=== PATIENT | female | born 1950 | race Caucasian/White ===

== ENCOUNTER 2024-02-12 08:17 | Outpatient (REF) | payer MEDICARE, SELFPAY ==
[2024-02-12 11:34] LABS: Erythrocyte Sedimentation Rate 11 MM/HR (0-20)
[2024-02-12 11:35] LABS: Alanine Aminotransferase 19 U/L (0-31); Aspartate Amino Transferase 24 U/L (5-31); C Reactive Protein 0.24 mg/dL (< or = 0.50)
[2024-02-12 11:47] LABS: HBsAGNum1 0.62 S/CO (0.00-0.99); Hepatitis B Core Antibody Nonreactive (Nonreactive); Hepatitis B Surface Antigen Negative (Negative); ~HepC Num1 0.25 S/CO (0.00-0.79); ~Hepatitis B Surface Antibody NONREACTIVE (Nonreactive); ~Hepatitis C Antibody Nonreactive (Nonreactive)
[2024-02-13 16:14] LABS: Complement C3 129 mg/dL (83-193)
[2024-02-13 17:43] LABS: Anti DNA DS Antibody 9 IU/mL
[2024-02-15 05:03] LABS: TS Negative Control Passed; TS Panel A 3; TS Panel B 1; TS Positive Control Passed; TSpotTB Negative (Negative)
== END 2024-02-12 08:18 | disposition home or self-care (01) ==
LOC: HO.LAB 08:17
PROVIDERS: PCP Nurse Practitioner Adult Health; Visit Provider Internal Medicine Rheumatology
DX: M32.9 Systemic lupus erythematosus, unspecified (principal); Z79.899 Other long term (current) drug therapy; M85.80 Other specified disorders of bone density and structure, unspecified site; I73.00 Raynaud's syndrome without gangrene; M35.00 Sjogren syndrome, unspecified
CPT/HCPCS: 36415; 84450; 84460; 85652; 86140; 86160; 86225; 86481; 86704; 86706; 86803; 87340; 99212

== ENCOUNTER 2024-02-12 08:17 | Outpatient (AMB) | payer MEDICARE, SELFPAY ==
[2024-02-12 08:18] VITALS: BP 124/72; PULSE 91; O2SAT 97; BMI 28.5
--- NOTE | 2024-02-12 08:18 | A.OFFVIS_ITS ---
Vital Signs 02/12/24 08:18 Height 6 ft Weight 210 lb BMI 28.5 BP 124/72 Blood Pressure Location Lt brachial Position Sitting Pulse 91 Pulse Source Pulse Oximeter Pulse Oximetry (%) 97 Oxygen Delivery Method Room Air Intake Visit Reasons: Lupus/CM Intake Note: Patient is here to follow up on lupus, patient has fallen 4 times since she was last seen, and dropping things for the last 4 months. Allergies nitrofurantoin [From Macrodantin] Allergy (Mild, Verified 02/12/24 08:24) diarrhea, vomiting spironolactone Allergy (Mild, Verified 02/12/24 08:24) Rash cecor Allergy (Intermediate, Uncoded 02/12/24 08:24) Anaphylaxis penicillin Allergy (Mild, Uncoded 02/12/24 08:24) Rash sulfa Adverse Reaction (Mild, Uncoded 02/12/24 08:24) Unknown HPI HPI Lupus/CM: Details: Back on HCQ. Feels better. She has improved joint pain overall. Reports surgery from right hammer toes did not cause fusion of bones in toes. Gained 10lbs. Now back on weight watchers. Fell 4 times going up stairs. Left leg is not lifting. Soles of feet turn white in the cold for years. She puts wool socks on with benefit. Sleeps with heating pad. No fevers, new rashes, dyspnea, joint pains, joint swelling, oral ulcers, urinary symptoms. Review of Systems Const All systems reviewed & are unremarkable except as noted in HPI and below Physical Exam Vital Signs: Last Vital Signs Pulse 91 02/12/24 08:18 BP 124/72 02/12/24 08:18 Pulse Ox 97 02/12/24 08:18 Oxygen Delivery Method Room Air 02/12/24 08:18 BMI result Body Mass Index 28.5 Const Other: General: Comfortable CVS: RRR Respiratory: clear to auscultation bilaterally. Good respiratory effort Skin: No lesions seen MSK: No tenderness of any joints. No synovitis. Good range of motion of upper extremities and lower extremities. 4/5 power left hip flexor, rest of the lower extremities was 5/5 power. Assessment & Plan Assessment & Plan (1) SLE (systemic lupus erythematosus): Comment: History of systemic lupus erythematosus mild with secondary Sjogren syndrome and Raynaud's phenomenon affecting her feet. OFELIA positive 1:80, indeterminate double-stranded DNA, SSA/SSB negative. Dry eyes, dry mouth, fatigue, mouth ulcers, nose ulcers with history of flares of thrush on tongue with oral nasopharyngeal ulcers. Initially hydroxychloroquine 400 mg q.d. controlled hand pain. Change to 200 mg q.d. 01/29/2023 after diagnosis of age-related macular degeneration in clinical quiescence state. She remains in clinical remission on hydroxychloroquine 200 mg daily. Code(s): M32.9 - Systemic lupus erythematosus, unspecified Category: Medical Qualifiers: Systemic lupus erythematosus type: unspecified Systemic lupus erythematosus organ involvement: unspecified Qualified Code(s): M32.9 - Systemic lupus erythematosus, unspecified Plan: Continue 200 mg hydroxychloroquine daily. Hx ARMD. She has an upcoming appointment for visual field testing. Eye exam OCT 01/29/2023, 05/01/2023 are okay. She will use Tylenol as needed for joint pain. I have reviewed her recent kidney function were which revealed creatinine of 1.0 with EGFR greater than 60 01/2024. She will use NSAIDs occasionally for joint pain. We will monitor kidney function closely as in the past she has had EGFR less than 60 (contraindication to oral NSAIDs). Return to clinic in 3 months (2) Other skilled nursing (current) drug therapy: Code(s): Z79.899 - Other skilled nursing (current) drug therapy Category: Medical Plan: See above (3) Osteopenia: Comment: Osteopenia history with high fracture risk. History of hairline pelvic fracture. Previously treated with Fosamax from 2019 or [id number]. She has been on drug holiday. She had surgery on right foot due to hammertoes and reports that the bones are not fusing. I recommend that she get an updated bone density. Code(s): M85.80 - Other specified disorders of bone density and structure, unspecified site Category: Medical Qualifiers: Osteopenia location: unspecified Qualified Code(s): M85.80 - Other specified disorders of bone density and structure, unspecified site Plan: She will contact PCP for bone density. Return to clinic in 3 months (4) Raynaud disease: Comment: Intermittent activity in feet. Her soles of her feet turn white when exposed to cold. Code(s): I73.00 - Raynaud's syndrome without gangrene Category: Medical Qualifiers: Raynaud?s-associated gangrene presence: without gangrene Qualified Code(s): I73.00 - Raynaud's syndrome without gangrene Plan: We discussed conservative management. She will try using hot packs as well as well as socks when she has an episode. Return to clinic in 3 months (5) Sjogren syndrome: Comment: Secondary Sjogren syndrome is controlled. Dry mouth is controlled on pilocarpine. Code(s): M35.00 - Sjogren syndrome, unspecified Category: Medical Qualifiers: Sjogren organ or system involvement: without extraglandular involvement Qualified Code(s): M35.00 - Sjogren syndrome, unspecified Plan: Continue pilocarpine 5 mg t.i.d. Return to clinic in 3 months Plan See above Orders: Orders Aspartate Amino Transferase 02/12/24 M32.9 - Systemic lupus erythematosus, unspecified, Z79.899 - Other long term care pharmacist (current) drug therapy Erythrocyte Sedimentation Rate 02/12/24 M32.9 - Systemic lupus erythematosus, unspecified, Z79.899 - Other long term care pharmacist (current) drug therapy T Spot TB 02/12/24 M32.9 - Systemic lupus erythematosus, unspecified, Z79.899 - Other long term care pharmacist (current) drug therapy Alanine Aminotransferase 02/12/24 M32.9 - Systemic lupus erythematosus, unspecified, Z79.899 - Other long term care pharmacist (current) drug therapy C Reactive Protein 02/12/24 M32.9 - Systemic lupus erythematosus, unspecified, Z79.899 - Other skilled nursing (current) drug therapy Hepatitis B,C Profile 02/12/24 M32.9 - Systemic lupus erythematosus, unspecified, Z79.899 - Other long term care pharmacist (current) drug therapy Complement C3 02/12/24 M32.9 - Systemic lupus erythematosus, unspecified, Z79.899 - Other long term care pharmacist (current) drug therapy Complement C4 02/12/24 M32.9 - Systemic lupus erythematosus, unspecified, Z79.899 - Other skilled nursing (current) drug therapy Anti DNA DS Antibody 02/12/24 M32.9 - Systemic lupus erythematosus, unspecified PT Evaluation and Treatment 02/12/24 R29.898 - Other symptoms and signs involving the musculoskeletal system Coding Level of Care Code Est Pt Level 4 (98430) Complex EM visit Add On G2211 Diagnoses Systemic lupus erythematosus, unspecified SLE type, unspecified organ involvement status M32.9 Systemic lupus erythematosus type: unspecified Systemic lupus erythematosus organ involvement: unspecified Other skilled nursing (current) drug therapy Z79.899 Osteopenia, unspecified location M85.80 Osteopenia location: unspecified Raynaud's disease without gangrene I73.00 Raynaud?s-associated gangrene presence: without gangrene Sjogren's syndrome without extraglandular involvement M35.00 Sjogren organ or system involvement: without extraglandular involvement
== END 2024-02-12 09:12 | disposition home or self-care (01) ==
PROVIDERS: Visit Provider Internal Medicine Rheumatology
DX: M32.9 Systemic lupus erythematosus, unspecified (principal); Z79.899 Other long term (current) drug therapy; M85.80 Other specified disorders of bone density and structure, unspecified site; I73.00 Raynaud's syndrome without gangrene; M35.00 Sjogren syndrome, unspecified
CPT/HCPCS: 99214; G2211

== ENCOUNTER 2024-05-15 08:09 | Outpatient (REF) | payer MEDICARE, SELFPAY ==
--- OUTSIDE RECORDS SUMMARY | 2024-05-15 10:26 | XMS_ITS | Encounter Summary ---
Author Organization [facility] Address [address] [place] [address] Care Team Providers Care Laundry Aide Name Role Phone Ani Stearns NP Primary Care Provi elena Encounter Details Date Type Department Care Team ([facility] st Contact Info) Description 05/15/2023 Orders Only [facility] [address] [place] [address] Jacqui Moran, BRIDGETT [address] [facility] [address] [place] [address] Other hammer toe(s) (acquired), right foot (Primary [...] 2:45 PM EDT Consult [facility] [place] [address] [place] [address] Justin Yoo MD [address] [facility] [address] [place] [address] 10/07/2024 3:50 PM EDT Office Visit [facility] [place] [address] [facility] [address] [place] [address] Lee Medley, BRIDGETT [address] [facility] [address] [place] [address] documented as of this encounter Visit Diagnoses Diagnosis Other hammer toe(s) (acquired), right foot- Primary documented in this encounter Care Teams Laundry Aide Relationship Specialty Start Date End Date Ani Stearns NP [address] [place] [address] [place] [address] PCP - General 08/14/20 documented as of this encounter
--- OUTSIDE RECORDS SUMMARY | 2024-05-15 10:26 | XMS_ITS | Continuity of Care Document ---
Author Name [facility] Organization [facility] Care Team Providers Care Barrel Dedenting Machine Operator Name Role Phone [facility] Unavailable Unavailable Problems Problem Status Onset Date Classification Date Reported Comments Source Generalized weakness 08/10/2018 08/11/2018 45 [facility] Jaw pain 08/10/2018 08/11/2018 45 [facility] Acute UTI 08/10/2018 08/11/2018 45 [facility] Syncope, near 08/10/2018 08/11/2018 [facility] ill feeling 08/10/2018 08/11/2018 45 [facility] EKG abnormalities 08/10/2018 08/11/2018 45 [facility] Medications Medication Details Route Status Patient Instructions Ordering Provider Order Date Source Sulfamethoxazole 800 MG / Trimethoprim 160 MG Oral Tablet [Bactrim] = 1 Tab, ORAL, BID, X 5 Day(s), # 10 Tab, Indication= Urinary Tract Infection (UTI), 0 Refill(s), Acute Active 019 45 [facility] [place] Allergies, Adverse Reactions, Alerts Substance Category Reaction Severity Reaction type Status Date Reported Comments Source codeine Assertion Drug allergy Active 45 [facility] penicillin Assertion Drug allergy Active 45 [facility] estrogens Assertion Drug allergy Active 45 [facility] Macrodantin Assertion Drug allergy Active 45 [facility] Ceclor Assertion Drug allergy Active 45 [facility] spironolacton e and analogues Assertion Drug allergy Active 45 [facility] Results Order Name Results Value Reference Range Date Interpretation Comments Source DDimerQnt D-Dimer, Qnt 0.55 mg/L - <=0.50 08/10 H Based on warehouse operations manager 's specificatio ns, PE/DVT risk related cutoff at0.50 mg/L the assay had a sensitivity of 97%, specificity of 42%, andNPV of 98% for ruling out PE/DVT. [facility] AutoDiff* Auto Neutrophil Percent 53.2 % 40.0 - 80.0 08/10 NA [facility] AutoDiff* Auto Neutrophil Absolute 3.2 K/uL 08/10 NA [facility] [place] AutoDiff* Auto Lymphocyte Percent 30.9 % 18.0 - 45.0 08/10 NA [facility] [place] AutoDiff* Auto Lymphocyte Absolute 1.9 K/uL 08/10 NA [facility] [place] AutoDiff* Auto Monocyte Percent 11.5 % 3.0 - 12.0 08/10 NA [facility] [place] AutoDiff* Auto Monocyte Absolute 0.7 K/uL 08/10 NA [facility] [place] AutoDiff* Auto Eosinophil Percent 3.3 % - <=7.0 08/10 NA [facility] [place] AutoDiff* Auto Eosinophil Absolute 0.2 K/uL 08/10 NA [facility] [place] AutoDiff* Auto Basophil Percent 1.1 % - <=2.0 08/10 NA [facility] [place] AutoDiff* Auto Basophil Absolute 0.1 K/uL 08/10 NA [facility] [place] CBC WBC 6.0 K/uL 3.5 - 10.4 08/10 NA [facility] [facility] CBC RBC 4.57 M/uL 3.60 - 5.40 08/10 NA [facility] [place] CBC HGB 13.2 gm/dL 12.0 - 16.0 08/10 NA [facility] [place] CBC HCT 41.3 % 37.0 - 47.0 08/10 NA [facility] [place] CBC MCV 90.4 fL 82.0 - 101.0 08/10 NA [facility] CBC MCH 28.9 pg 26.0 - 34.0 08/10 NA [facility] [place] CBC MCHC 31.9 gm/dL 32.0 - 36.0 08/10 L [facility] [place] CBC RDW 14.2 % 11.0 - 15.0 08/10 NA [facility] [place] CBC PLT 219 K/uL 140 - 440 08/10 NA [facility] [place] CBC MPV 8.5 fL 7.9 - 10.8 08/10 NA [facility] [place] CMP Sodium Level 140 mmol/L 136 - 145 08/10 NA [facility] [place] CMP Potassium Level 3.4 mmol/L 3.5 - 5.1 08/10 L [facility] [place] CMP Chloride Level 107 mmol/L 98 - 107 08/10 NA [facility] [place] CMP CO2/Carbon Dioxide 24 mmol/L 21 - 32 08/10 NA [facility] [place] CMP Anion Gap 9 mmol/L 4 - 16 08/10 [facility] [place] [facility] CMP Glucose, Random 104 mg/dL 70 - 95 08/10 H Reference ranges are based on a fasting specimen. [facility] BUN 16 mg/dL 7 - 20 08/10 [facility] [place] [facility] CMP Creatinine 0.7 mg/dL 0.6 - 1.1 08/10 NA [facility] [place] CMP BUN/Creat Ratio 22.9 08/10 [facility] [place] [facility] CMP Osmolality, Calculated 291 08/10 [facility] [place] [facility] CMP Calcium Level 9.0 mg/dL 8.6 - 10.0 08/10 [facility] [place] [facility] CMP Total Protein 7.3 gm/dL 6.4 - 8.2 08/10 [facility] [place] [facility] CMP Albumin Level 4.1 gm/dL 3.5 - 5.0 08/10 NA [facility] [place] CMP Globulin Level 3.2 gm/dL 2.0 - 4.0 08/10 [facility] [place] CMP A/G Ratio 1.3 1.1 - 2.2 08/10 [facility] [place] CMP ALP 50 units/L 38 - 126 08/10 NA [facility] [place] CMP ALT 14 units/L 10 - 40 08/10 [facility] [place] CMP AST 19 units/L 15 - 41 08/10 [facility] [place] [facility] CMP Bilirubin, Total 0.5 mg/dL - <=1.0 08/10 NA [facility] [place] CMP GFR - Non >60 mL/min/1.7 3m2 08/10 NA <60 = Renal Insufficienc y, <15 = Renal Failure. This equation is not applicable to person's under 18 years of age.eGFR calculation based on the IDMS traceable four-paramet er MDRD equation. [facility] GFR - >60 mL/min/1.7 3m2 08/10 NA [facility] Trop Troponin I <0.02 ng/mL - [...] testing may be helpful for interpretati on. [facility] UADwMCSIf UA - Source/Collec t Type Urine Clean Cat 08/10 NA [facility] UADwMCSIf UA - Appearance CLEAR Clear 08/10 NA [facility] U[facility]wMCSIf UA - Color YELLOW 08/10 NA [facility] UADwMCSIf UA - pH 6.0 5.0 - 8.0 08/10 NA [facility] UADwMCSIf UA - Specific [place] 1.010 1.010 - 1.025 08/10 NA [facility] UADwMCSIf UA - Protein NEGATIVE Negative 08/10 NA [facility] UADwMCSIf UA - Glucose NEGATIVE Negative 08/10 [facility] [place] [facility] UADwMCSIf UA - Ketones NEGATIVE Negative 08/10 [facility] [place] [facility] UADwMCSIf UA - Bilirubin NEGATIVE Negative 08/10 NA [facility] UADwMCSIf UA - Blood NEGATIVE Negative 08/10 NA [facility] UA - Urobilinogen 0.2 0.1 - 1.0 08/10 NA [facility]wM[facility] UA - Nitrites NEGATIVE Negative 08/10 [facility] [place] [facility]wM[facility] UA - Leukocyte Esterase SMALL Negative 08/10 * [facility] UA Micro Y/N Yes 08/10 NA [facility] Urine Culture Y/N Yes 08/10 NA [facility] UAMicro* UA - WBC 6-10 /HPF 0 - 5 08/10 * [facility] UAMicro* UA - RBC 0-2 /HPF 0 - 2 08/10 NA [facility] UAMicro* UA - Bacteria Moderate /HPF Negative 08/10 * [facility] UAMicro* UA - Epithelials, Squamous Few 08/10 NA [facility] C Urine C Urine Final:DANIEL ECTION [...] laboratory , or contact the Microbi[employer] Bus Monitor for consultati on. Performed at: [facility] Central Lab, CLIA# [id number] [id number] [place] [address] 08/10 [facility] Diagnostic Reports Report Value Date Source Chest 1 Vw Portable INDICATION: Weakness COMPARISON: None. TECHNIQUE: AP upright chest x-ray was obtained. FINDINGS: There is no focal consolidation, pleural effusion or pneumothorax. The cardiomediastinal silhouette is within normal limits. Regional osseous structures are unremarkable. IMPRESSION: No acute cardiopulmonary findings. Workstation ID: [id number] Signed by: Ochoa Florian on 08/11/2018 11:30 08/10/2018 [facility] Consultation Notes Results Value Date Source ED Physician Notes Patient: CHLOE ROSARIO Age: 68 years Sex: Female : 1950 Author: MD [place] Erin R Associated Diagnosis: Acute UTI; Generalized weakness Basic Information MSEI MD/RAILROAD WHEELS AND AXLE INSPECTOR/PA Time Patient Seen face to face: Date [...] pain at 04:00 am. Patient went the [facility] where ECG abnormalities were appreciated. [...] UA - Appearance Clear UA - Specific [place] 1.010 UA - pH 6.0 UA - [...] August 10, 2018, 5:00 PM. . 08/10/2018 [facility] Vital Signs Vital Sign Value Date Comments Source Pulse rate 95 bpm 08/11/2018 45 [facility] Respiratory rate 18 br/min 08/11/2018 45 [facility] Temperature (F) 97.5 [degF] 08/11/2018 45 [facility] [place] Pulse Oximetry 97 % 08/11/[address] [facility] [place] Systolic BP 132 mm[Hg] 08/11/2018 45 [facility] [place] Diastolic BP 77 mm[Hg] 08/11/2018 45 [facility] [place] Pulse Oximetry 96 % 08/11/[address] [facility] [place] Systolic BP 141 mm[Hg] 08/11/2018 45 [facility] [place] Diastolic BP 82 mm[Hg] 08/11/2018 45 [facility] [place] Neurological norm WDL (08/10/18 1:51 PM) 08/10/2018 45 [facility] [place] Temperature (F) 98.1 [degF] 08/10/2018 45 [facility] [place] Pulse rate 114 bpm 08/10/2018 45 [facility] [place] Pulse Oximetry 96 % 08/10/[address] [facility] [place] Respiratory rate 20 br/min 08/10/2018 45 [facility] [place] HeightLength (cm) 170 cm 08/10/2018 45 [facility] [place] Weight (kg) 90 kg 08/10/2018 45 [facility] [place] Systolic BP 182 mm[Hg] 08/10/2018 45 [facility] [place] Diastolic BP 96 mm[Hg] 08/10/2018 45 [facility] [place] Dose calculation weight (kg) 90 kg 08/10/2018 45 [facility] [place] Encounters Location Location Details Encounter Type Encounter Number Reason For Visit Attending Provider ADM Date DC Date Status Source 45 45 [facility] Outpatient [id number] FLUTTER TACHYCARD IA Roscoe Gresham 08/10 Active [facility] [facility] 45 45 [facility] Emergency [id number] ABNORMAL ELECTROCA RDIOGRAM Concepcion Villalta 08/10 Active [facility] [place] Procedures Procedure Code Date Perfomer Comments Source ROUTINE VENIPUNCTURE [id number] 08/11/2018 45 [facility] [place] ROUTINE VENIPUNCTURE 24421 08/10/2018 45 [facility] [place] Plan of Care Plan of Care Date Source Diagnostic Tests PendingCult ure Urine 08/10/18 08/11/2018 45 [facility] [place]
--- OUTSIDE RECORDS SUMMARY | 2024-05-15 10:27 | XMS_ITS | Encounter Summary ---
Author Organization [facility] Address [address] [place] [address] Care Team Providers Care Indoor Landscaper/Gardener Name Role Phone Ani Stearns NP Primary Care Provi elena Reason for Visit * Reason Comments Pain Encounter Details Date Type Department Care Team (Late st Contact Info) Description 05/08/2024 4:45 PM EST Consult [facility] [address] [phone] Wili Schwab PA 31 [facility] [address] [place] [address] Pain of right hip (Primary Dx); Spondylosis [...] from the original note were not included. [facility] [address] [facility] [address] [phone] Encounter Date: 05/08/24 Assessment & Plan 1. [...] AND ABLATION FOOT SURGERY Right 05/2023 reconstrontion [place] APPENDECTOMY Appendectomy: 2011-10-05 10:33:19 [place] DESTRUCTION VAGINAL LESIONS SIMPLE Ablation Of Vaginal Lesion(S): 2011-10-05 10:33:19 [place] TONSILLECTOMY PRIMARY/SECONDARY <AGE 12 Tonsillectomy: 2011-10-05 10:33:19 [place] UNLISTED PROCEDURE URINARY SYSTEM Bladder Surgery: 2011-10-05 [...] 2:45 PM EDT Consult [facility] [address] [address] Justin Yoo MD [address] [place] [address] [address] [place] [id number] 10/07/2024 3:50 PM EDT Office Visit [facility] Neurology [address] [place] [address] Lee Medley, BRIDGETT 35 [facility] [address] [place] [address] documented as of this encounter Procedures Procedure Name Priority Date/Time Associated Diagnosis Comments XR LUMBAR SPINE 1 VIEW Routine 05/08/2024 4:47 PM EST Pain of right hip XR HIP W PELVIS 2 OR 3 VIEWS-RIGHT Routine 05/08/2024 4:47 PM EST Pain of right hip documented in this encounter Results * XR Lumbar spine 1 view (05/08/2024 4:47 PM EST) Narrative [facility] - 05/08/2024 4:47 PM EST [facility] and images reviewed by orthopedic provider. ??Any findings are documented within ambulatory encounter note on date of service. Wili LIUG DIAGNOSTIC I MAGING ORDERABLES Performing Organization Address [facility] de Phone Number OAH * XR Hip w pelvis 2 or 3 views-Right (05/08/2024 4:47 PM EST) Narrative [facility] - 05/08/2024 4:47 PM EST This [facility] and images reviewed by orthopedic provider. ??Any findings are documented within ambulatory encounter note on date of service. Wili LIUG DIAGNOSTIC I MAGING ORDERABLES Performing Organization Address [facility] Co de Phone Number [facility] documented in this encounter Visit Diagnoses Diagnosis Pain of right hip- Primary Spondylosis of lumbar region without myelopathy or radiculopathy documented in this encounter Care Teams Indoor Landscaper/Gardener Relationship Specialty Start Date End Date Ani Stearns NP [address] [place] [address] Dr [place], [place]EL [address] PCP - General 08/14/20 documented as of this encounter
--- OUTSIDE RECORDS SUMMARY | 2024-05-15 10:27 | XMS_ITS | Encounter Summary ---
Author Organization [facility] Address [address] [place] [address] Care Team Providers Care Marquetry Worker Name Role Phone Ani Stearns NP Primary Care Provi elena Encounter Details Date Type Department Care Team (Late st Contact Info) Description 05/22/2023 Scanned Document [facility] [place] [address] Mariusz Howell MD [address] [place] [address] Social History Tobacco Use Types Packs/Day Years [...] 2:45 PM EDT Consult [facility] [place] [address] [place] [address] Justin Yoo MD [address] [facility] [address] [place] [address] 10/07/2024 3:50 PM EDT Office Visit [facility] [place] 35 [facility] [address] [place] [address] Lee Medley APRN 35 [facility] [address] [place] [address] documented as of this encounter Visit Diagnoses Not on filedocumented in this encounter Care Teams Marquetry Worker Relationship Specialty Start Date End Date Ani Stearns NP [address] [place] [address] [place] [address] PCP - General 08/14/20 documented as of this encounter
--- OUTSIDE RECORDS SUMMARY | 2024-05-15 10:27 | XMS_ITS | Clinical Summary ---
Author Organization [facility] Address [address] [place] [address] Care Team Providers Care Cook Fast Food Name Role Phone Unavailable Primary Care Provider [...]
--- OUTSIDE RECORDS SUMMARY | 2024-05-15 10:27 | XMS_ITS | Encounter Summary ---
Author Organization [facility] Address [address] [place] [address] Care Team Providers Care Analysis Manager Name Role Phone Ani Stearns NP Primary Care Provi elena Encounter Details Date Type Department Care Team (Late st Contact Info) Description 05/21/2023 Scanned Document [facility] [address] Mariusz Howell MD [address] [place] [address] Social History Tobacco Use Types Packs/Day Years [...] 2:45 PM EDT Consult [facility] [place] [address] [place] [address] Justin Yoo MD [address] [facility] [address] [place] [address] 10/07/2024 3:50 PM EDT Office Visit [facility] [place] 35 [facility] [address] [place] [address] Lee Medley APRN 35 [facility] [address] [place] [address] documented as of this encounter Visit Diagnoses Not on filedocumented in this encounter Care Teams Analysis Manager Relationship Specialty Start Date End Date Ani Stearns NP [address] [place] [address] [place] [address] PCP - General 08/14/20 documented as of this encounter
--- OUTSIDE RECORDS SUMMARY | 2024-05-15 10:27 | XMS_ITS | Encounter Summary ---
Author Organization [facility] Address [address] [place] [address] Care Team Providers Care Sleeve Separator Name Role Phone Ani Stearns NP Primary Care Provi elena Encounter Details Date Type Department Care Team ([facility] st Contact Info) Description 11/22/2023 Scanned Document [facility] [place] [address] [place] [address] Mariusz Howell MD [address] [place] [address] Social History Tobacco Use Types Packs/Day Years [...] 2:45 PM EDT Consult [facility] [address] [place] [address] Justin Yoo MD [address] [place] [address] 10/07/2024 3:50 PM EDT Office Visit [facility] [place] 35 [facility] [address] [place] [address] Lee Medley, BRIDGETT 35 [facility] [address] [place] [address] documented as of this encounter Visit Diagnoses Not on filedocumented in this encounter Care Teams Sleeve Separator Relationship Specialty Start Date End Date Ani Stearns NP [address] [place] [address] [place] [address] PCP - General 08/14/20 documented as of this encounter
--- OUTSIDE RECORDS SUMMARY | 2024-05-15 10:27 | XMS_ITS | Encounter Summary ---
Author Organization [facility] Address [address] [place] [address] Care Team Providers Care Aoc Director Intelligence Officer Name Role Phone Ani Stearns NP Primary Care Provi elena Encounter Details Date Type Department Care Team (Late st Contact Info) Description 05/08/2023 Scanned Document [facility] [address] Mariusz Howell MD [address] [place] [address] Social History Tobacco Use Types Packs/Day Years [...] 2:45 PM EDT Consult [facility] [place] [address] [place] [address] Justin Yoo MD [address] [facility] [address] [place] [address] 10/07/2024 3:50 PM EDT Office Visit [facility] [place] 35 [facility] [address] [place] [address] Lee Medley APRN 35 [facility] [address] [place] [address] documented as of this encounter Visit Diagnoses Not on filedocumented in this encounter Care Teams Aoc Director Intelligence Officer Relationship Specialty Start Date End Date Ani Stearns NP [address] [place] [address] [place] [address] PCP - General 08/14/20 documented as of this encounter
--- OUTSIDE RECORDS SUMMARY | 2024-05-15 10:27 | XMS_ITS | Encounter Summary ---
Author Organization [facility] Address [address] [place] [address] Care Team Providers Care Editorial Intern Name Role Phone Ani Stearns NP Primary Care Provi elena Encounter Details Date Type Department Care Team (Late st Contact Info) Description 05/21/2023 Scanned Document [facility] [place] [address] Mariusz Howell MD [address] [place] [address] Social History Tobacco Use Types Packs/Day Years [...] 2:45 PM EDT Consult [facility] [place] [address] [place] [address] Justin Yoo MD [address] [facility] [place] [address] [place] [address] 10/07/2024 3:50 PM EDT Office Visit [facility] Neurology [place] 35 [facility] [address] [place] [address] Lee Medley APRN 35 [facility] [address] [place] [address] documented as of this encounter Visit Diagnoses Not on filedocumented in this encounter Care Teams Editorial Intern Relationship Specialty Start Date End Date Ani Stearns NP [address] [place] [address] [place] [address] PCP - General 08/14/20 documented as of this encounter
--- OUTSIDE RECORDS SUMMARY | 2024-05-15 10:27 | XMS_ITS | Encounter Summary ---
Author Organization [facility] Address [address] [place] [address] Care Team Providers Care Book Illustrator Name Role Phone Jinny Ani Liz VICKIE Primary Care Provi elena Encounter Details Date Type Department Care Team (Latest Contact Info) Description 05/28/2020 Lab Requisition [facility] COVID Drive Through [address] [place] [address] [address] [place] [address] Mariusz Howell MD [address] [place] [address] Encounter for laboratory testing for COVID-19 virus [...] 2:45 PM EDT Consult [facility] [address] [place] [address] Justin Yoo MD 499 [facility] [address] [place] [address] 10/07/2024 3:50 PM EDT Office Visit [facility] Neurology [place] 35 [facility] [address] [place] [address] Lee Medley, EYE GLASS FRAME POLISHER 35 [facility] [address] [place], [place] [address] documented as of this encounter Procedures Procedure Name Priority Date/Time Associated Diagnosis Comments COVID-19 (SARS-COV-2) ANNALISE Routine 05/28/2020 10:52 AM EDT Encounter for laboratory testing for COVID-19 virus [ICD-10-CM] documented in this encounter Results * COVID-19 (SARS-CoV-2), ANNALISE (In-House) (05/28/2020 10:52 AM EDT) SARS CoV 2 Not Detected Not Detected 05/28/2020 2:08 PM EDT [facility] Comment: Negative results do not [...] was completed and performance characteristics established by [facility] as per the FDA and CLIA requirement for this EUA. The Aptima SARS-CoV-2 assay Letter of Authorization, along with the authorized Fact Sheet for Healthcare Providers, the authorized Fact Sheet for Patients, and authorized labeling are available on the FDA website: https://www.fda.gov/medical-devices/gmvugoelv-rlkwfjomkj-yxhthhu-devices/emergen - x-uopklvmcsxfhkk-evlhomb-devices. Performed at [facility], [place], [place] ??[place] License 0385 ??CLIA [id number] Source Nasopharyngeal 05/28/2020 2:08 PM EDT [facility] Comment:Performed at [facility], [facility], [place] license No. [id number] CLIA No. [id number] Microbiology Nasopharyngeal swab / Unknown 05/28/2020 10:52 AM EDT 05/28/2020 10:53 AM EDT Mariusz Howell MD MICROBIOLOGY - GENER AL ORDERABLES [facility] [address] [place] [address] documented in this encounter Visit Diagnoses Diagnosis Encounter for laboratory testing for COVID-19 virus documented in this encounter Care Teams Book Illustrator Relationship Specialty Start Date End Date Ani Stearns NP [address] [place] [address] [place] [address] PCP - General 08/14/20 documented as of this encounter
--- OUTSIDE RECORDS SUMMARY | 2024-05-15 10:27 | XMS_ITS | Clinical Summary ---
Author Organization [facility] Address [address] [place] [address] Care Team Providers Care Reel Tender Name Role Phone Ct Bui Primary Care Provider [phone] Social History Tobacco Use Types Packs/Day Years [...] age to complete this topic Care Teams Reel Tender Relationship Specialty Start Date End Date Ct Bui DO [address] [place] [address] Dr [place] 1 [place] [phone] PCP - General Internal Medicine 06/21/16
--- OUTSIDE RECORDS SUMMARY | 2024-05-15 10:27 | XMS_ITS | Encounter Summary ---
Author Organization [facility] Address [address] [place] [address] Care Team Providers Care Can Tender Name Role Phone Ani Stearns NP Primary Care Provi elena Encounter Details Date Type Department Care Team (Late st Contact Info) Description 05/07/2023 Scanned Document [facility] [address] Mariusz Howell MD [address] [place] [address] Social History Tobacco Use Types Packs/Day Years [...] 2:45 PM EDT Consult [facility] [place] [address] [place] [address] Justin Yoo MD [address] [facility] [address] [place] [address] 10/07/2024 3:50 PM EDT Office Visit [facility] [place] 35 [facility] [address] [place] [address] Lee Medley APRN 35 [facility] [address] [place] [address] documented as of this encounter Visit Diagnoses Not on filedocumented in this encounter Care Teams Can Tender Relationship Specialty Start Date End Date Ani Stearns NP [address] [place] [address] [place] [address] PCP - General 08/14/20 documented as of this encounter
--- OUTSIDE RECORDS SUMMARY | 2024-05-15 10:27 | XMS_ITS | Clinical Summary ---
Author Organization [facility] Address [address] [place] [address] Care Team Providers Care Manager Sales And Marketing Name Role Phone Jinny Ani Hill NP [...] and she is on hydroxychloroquine from her solutions specialist. Her LV function as checked by nuclear [...] 4:50 PM EST Ancillary [facility] [address] [address] 05/08/2024 4:45 PM EST [facility] [address] [address] Wili Schwab PA Pain of right hip (Primary Dx); Spondylosis of lumbar region without myelopathy or radiculopathy 03/20/2024 11:30 AM EST Office Visit [facility] [address] [address] Lee Medley APRN Essential tremor (Primary Dx) 03/20/2024 Travel 02/28/2024 10:45 AM EST Office Visit [facility] [address] [place] [address] Jacqui Moran APRN Osteoarthritis of [...] 2:45 PM EDT Consult [facility] [place] [address] [place] [address] Justin Yoo MD [address] [facility] [address] [place], [place] 10/07/2024 3:50 PM EDT Office Visit [facility] [place] 35 [facility] [address] [place] [address] Lee Medley, BRIDGETT 35 [facility] [address] [place] [address] Health Maintenance Due Date Last Done Comments [...] 4:47 PM EST Pain of right hip [place] ARTHROCENTESIS ASPIR&/INJ SMALL JT/BURSA W/O US Routine 02/28/2024 10:45 AM EST Osteoarthritis of ankle and foot, right from Last 3 Months Results * XR Lumbar spine 1 view (05/08/2024 4:47 PM EST) Narrative [facility] - 05/08/2024 4:47 PM EST This exam was performed in office at [facility] and images reviewed by orthopedic provider. ??Any findings are documented within ambulatory encounter note on date of service. Wili LIUG DIAGNOSTIC I MAGING ORDERABLES Performing Organization Address [facility] Co de Phone Number OA * XR Hip w pelvis 2 or 3 views-Right (05/08/2024 4:47 PM EST) Narrative [facility] - 05/08/2024 4:47 PM EST This exam was performed in office at [facility] and images reviewed by orthopedic provider. ??Any findings are documented within ambulatory encounter note on date of service. Wili LIUG DIAGNOSTIC I MAGING ORDERABLES Performing Organization Address [facility] Co de Phone Number OA * [place] ARTHROCENTESIS ASPIR&/INJ SMALL JT/BURSA W/O US (02/28/2024 [...] 10:16 AM 11/15/2021 9:23 AM Care Teams Manager Sales And Marketing Relationship Specialty Start Date End Date Ani Stearns NP [address] [place] [address] [place] [address] PCP - General 08/14/20
--- OUTSIDE RECORDS SUMMARY | 2024-05-15 10:27 | XMS_ITS | Clinical Summary ---
Author Organization [facility] Address [address] [place] [address] Care Team Providers Care Furnace Operator Name Role Phone Ct Bui DO Primary Care Provider [phone] Allergies Active Allergy Reactions Criticality Noted Date [...] age to complete this topic Care Teams Furnace Operator Relationship Specialty Start Date End Date Ct Bui DO [address] [place] [address] [address] [place] [address] PCP - General Internal Medicine 06/21/16
--- OUTSIDE RECORDS SUMMARY | 2024-05-15 10:27 | XMS_ITS | Encounter Summary ---
Author Organization [facility] Address [address] [place] [address] Care Team Providers Care Solar Photovoltaic Designer Name Role Phone Ani Stearns Liz VICKIE Primary Care Provi elena Encounter Details Date Type Department Care Team (Late st Contact Info) Description 06/02/2020 Erroneous Encounter [facility] [address] [place] [address] Provider, MD Dexter Social History Tobacco Use [...] 2:45 PM EDT Consult [facility] [address] [place] [address] Justin Yoo MD [address] [place] [address] [address] [place] [address] 10/07/2024 3:50 PM EDT Office Visit [facility] [address] [place] [address] Lee Medley, BRIDGETT 35 [facility] [address] [place] [address] documented as of this encounter Visit Diagnoses Not on filedocumented in this encounter Care Teams Solar Photovoltaic Designer Relationship Specialty Start Date End Date Ani Stearns NP [address] [place] [address] [place] [address] PCP - General 08/14/20 documented as of this encounter
--- OUTSIDE RECORDS SUMMARY | 2024-05-15 10:27 | XMS_ITS | Encounter Summary ---
Author Organization [facility] Address [address] [place] [address] Care Team Providers Care Shop Blacksmith Name Role Phone Ani Stearns NP Primary Care Provi elena Encounter Details Date Type Department Care Team (Late st Contact Info) Description 05/08/2024 4:50 PM EST Ancillary Procedure Orthopedic [address] [phone] Social History Tobacco Use Types Packs/Day Years [...] Description 05/29/2024 2:45 PM EDT Consult Orthopedic [address] [address] Justin Yoo MD [address] [place] [address] 10/07/2024 3:50 PM EDT Office Visit [facility] [place] 35 [facility] [address] [place] [address] Lee Medley, SUSTAINMENT LOGISTICS ANALYST [address] [facility] [address] [place] [address] documented as of this encounter Procedures Procedure Name Priority Date/Time Associated Diagnosis Comments XR LUMBAR SPINE 1 VIEW Routine 05/08/2024 4:47 PM EST Pain of right hip XR HIP W PELVIS 2 OR 3 VIEWS-RIGHT Routine 05/08/2024 4:47 PM EST Pain of right hip documented in this encounter Results * XR Lumbar spine 1 view (05/08/2024 4:47 PM EST) Narrative [facility] - 05/08/2024 4:47 PM EST This exam was performed in office at [facility] and images reviewed by orthopedic provider. ??Any findings are documented within ambulatory encounter note on date of service. Wili VILLALTA IMG DIAGNOSTIC I MAGING ORDERABLES Performing Organization Address [facility] de Phone Number OA * XR Hip w pelvis 2 or 3 views-Right (05/08/2024 4:47 PM EST) Narrative [facility] - 05/08/2024 4:47 PM EST [facility] and images reviewed by orthopedic provider. ??Any findings are documented within ambulatory encounter note on date of service. Wili VILLALTA IMG DIAGNOSTIC I MAGING ORDERABLES Performing Organization Address [facility] Co de Phone Number OA documented in this encounter Visit Diagnoses Not on filedocumented in this encounter Care Teams Shop Blacksmith Relationship Specialty Start Date End Date Ani Stearns NP [address] [place] [address] Dr Hampton, MICHAEL [address] PCP - General 08/14/20 documented as of this encounter
[2024-05-15 17:53] LABS: MANUAL DIFF FLAG NO
[2024-05-15 18:01] LABS: Basophils Absolute Auto 0.1 X10*3/uL (0.0-0.2); Basophils Percent Auto 1.6 % (0-2); Eosinophils Absolute Auto 0.4 X10*3/uL (0.0-0.4); Eosinophils Percent Auto 8.3 % (0-4); Hematocrit 42.8 % (37.0-47.0); Hemoglobin 13.5 g/dl (12.0-16.0); Imm Gran Abs Auto 0.02 X10*3/uL (0.00-0.03); Imm Gran Pct Auto 0.5 % (0.0-0.4); Lymphocytes Percent Auto 45.9 % (20-40); Mean Corpuscular HGB Conc 31.5 g/dl (31.0-35.0); Mean Platelet Volume 10.9 fL (9.4-12.3); Monocytes Absolute Auto 0.5 X10*3/uL (0.1-1.2); Neutrophils Absolute Auto 1.4 x10*3/uL (2.0-8.3); Neutrophils Percent Auto 31.7 % (45-73); Platelet Count 270 X10*3/uL (160-400); Red Blood Count 4.65 X10*6/uL (4.20-5.50); Red Cell Distribution Width 13.8 % (11.0-16.0); White Blood Count 4.3 X10*3/uL (4.8-10.8)
[2024-05-15 18:24] LABS: Alanine Aminotransferase 12 U/L (0-31); Aspartate Amino Transferase 21 U/L (5-31); Calcium 9.8 mg/dL (8.4-10.2); Estimated Glomerular Filt Rate > 60
[2024-05-15 18:38] LABS: Vitamin D 25-OH Total 77.7 ng/mL (>30)
[2024-05-15 19:27] LABS: Erythrocyte Sedimentation Rate 13 MM/HR (0-20)
[2024-05-16 13:43] LABS: Anti DNA DS Antibody 6 IU/mL
[2024-05-16 15:24] LABS: Complement C3 144 mg/dL (83-193)
[2024-05-19 11:13] LABS: Prot Elec - Albumin 4.2 g/dL (3.8-4.8); Prot Elec - Alpha1 0.3 g/dL (0.2-0.3); Prot Elec - Alpha2 0.8 g/dL (0.5-0.9); Prot Elec - Beta 1 0.5 g/dL (0.4-0.6); Prot Elec - Beta 2 0.5 g/dL (0.2-0.5); Prot Elec - Total Protein 7.1 g/dL (6.1-8.1)
== END 2024-05-15 08:10 | disposition home or self-care (01) ==
LOC: HO.HKASLDS 08:09
PROVIDERS: PCP Nurse Practitioner Adult Health; Visit Provider Internal Medicine Rheumatology
DX: M32.9 Systemic lupus erythematosus, unspecified (principal); M85.80 Other specified disorders of bone density and structure, unspecified site; Z79.60 Long term (current) use of unspecified immunomodulators and immunosuppressants; M35.00 Sjogren syndrome, unspecified; S32.040A Wedge compression fracture of fourth lumbar vertebra, initial encounter for closed fracture; Z79.899 Other long term (current) drug therapy; I73.00 Raynaud's syndrome without gangrene
CPT/HCPCS: 36415; 82040; 82306; 82310; 82565; 84165; 84450; 84460; 85025; 85652; 86140; 86160; 86225; 99212

== ENCOUNTER 2024-05-15 08:09 | Outpatient (AMB) | payer MEDICARE, SELFPAY ==
[2024-05-15 08:18] VITALS: BP 140/80; PULSE 83; O2SAT 98; BMI 28.5
--- NOTE | 2024-05-15 08:18 | A.OFFVIS_ITS ---
Vital Signs 05/15/24 08:18 Height 6 ft Weight 210 lb BMI 28.5 BP 140/80 H Blood Pressure Location Lt brachial Position Sitting Pulse 83 Pulse Source Pulse Oximeter Pulse Oximetry (%) 98 Oxygen Delivery Method Room Air Intake Visit Reasons: Follow Up 3mo Intake Note: Patient is here to follow up on lupus. Allergies nitrofurantoin [From Macrodantin] Allergy (Mild, Verified 05/15/24 08:20) diarrhea, vomiting spironolactone Allergy (Mild, Verified 05/15/24 08:20) Rash cecor Allergy (Intermediate, Uncoded 02/12/24 08:24) Anaphylaxis penicillin Allergy (Mild, Uncoded 02/12/24 08:24) Rash sulfa Adverse Reaction (Mild, Uncoded 02/12/24 08:24) Unknown HPI HPI Follow Up 3mo: Details: SHe had increase pain in right buttocks radiating to lateral side requiring crutches after lifting a wheelbarrel 30lb to distribute salt on driveway last week. She had pain with difficulty walking. SHe saw ortho who did imaging with L spine x-ray and prescribed her dexamethasone 5 mg daily and cyclobenzaprine 5 mg t.i.d. which patient took 5 mg q.h.s.. Improving. She still requiring crutches to ambulate. She denies having acute lower back pain or radicular symptoms. X-ray L spine 05/08/2024 [facility]: X-ray of the lateral lumbar spine shows that she has loss of lordosis with disc degeneration L3-L4 L4-L5 L5-S1. There is question of a compression fracture L4 area. X-ray results are reported an orthopedic surgeon PAWAN Schwab's note. Cardiology eval: decreased heart function and aortic and mitral valve disease (regurgitation). She has been using Lasix for over 20 years prescribed for ankle edema. She recently reduced her dose from 10 mg daily to 5 mg daily, which has improved dry eyes and dry mouth. She continues to take pilocarpine for dry mouth. She saw Ophthalmology and has had cataract surgery with visual field testing for hydroxychloroquine surveillance since last visit. No fevers, new rash, joint swelling, joint pain, urinary symptoms. Raynaud's is active in hands and feet but managed conservatively. Review of Systems Const All systems reviewed & are unremarkable except as noted in HPI and below Physical Exam Vital Signs: Last Vital Signs Pulse 83 05/15/24 08:18 BP 140/80 H 05/15/24 08:18 Pulse Ox 98 05/15/24 08:18 Oxygen Delivery Method Room Air 05/15/24 08:18 BMI result Body Mass Index 28.5 Const Other: General: Comfortable CVS: RRR Respiratory: clear to auscultation bilaterally. Good respiratory effort Skin: No lesions seen MSK: She has tenderness to palpate lower lumbar spinous process. Tender right gluteal region. No tenderness of any joints. No synovitis. Good range of motion of upper extremities and lower extremities. Assessment & Plan Assessment & Plan (1) Compression fracture of L4 vertebra: Comment: Suspected on L-spine x-ray 05/08/2024. She has history of osteopenia with high fracture risk. I will be ordering MRI L-spine for further evaluation of acute fracture as it will loom changeover operator as she will then be classified as having osteoporosis. She also has myofascial strain of gluteal muscles contributing to her back pain. Code(s): S32.040A - Wedge compression fracture of fourth lumbar vertebra, initial encounter for closed fracture Category: Medical Qualifiers: Encounter type: initial encounter Qualified Code(s): S32.040A - Wedge compression fracture of fourth lumbar vertebra, initial encounter for closed fracture Plan: MRI L-spine ordered. My staff will notify her of results as soon as they are available. I recommended that she continue cyclobenzaprine 5 mg b.i.d. or q.h.s. to help with relieving muscle strain Continue to apply heat to back and lidocaine patches (2) SLE (systemic lupus erythematosus): Comment: She has serological activity with mild elevation in double-stranded DNA 02/2024 labs. Clinically quiescent on hydroxychloroquine 200 mg daily. History of systemic lupus erythematosus mild with secondary Sjogren syndrome and Raynaud's phenomenon affecting her feet. OFELIA positive 1:80, indeterminate double-stranded DNA, SSA/SSB negative. Dry eyes, dry mouth, fatigue, mouth ulcers, nose ulcers with history of flares of thrush on tongue with oral nasopharyngeal ulcers. Initially hydroxychloroquine 400 mg q.d. controlled hand pain. Changed HCQ to 200 mg q.d. 01/29/2023 after diagnosis of age-related macular degeneration in clinical quiescence state. She remains in clinical remission on hydroxychloroquine 200 mg daily. Code(s): M32.9 - Systemic lupus erythematosus, unspecified Category: Medical Qualifiers: Systemic lupus erythematosus organ involvement: unspecified Systemic lupus erythematosus type: unspecified Qualified Code(s): M32.9 - Systemic lupus erythematosus, unspecified Plan: Continue 200 mg hydroxychloroquine daily. Hx ARMD. Requesting clinic note of last eye exam with visual field testing. Eye exam OCT 01/29/2023, 05/01/2023 are okay. Return to clinic in 3 months (3) Osteopenia: Comment: Osteopenia history with high fracture risk. History of hairline pelvic fracture. She had history of traumatic T-spine fracture age 43 after falling and hitting knee. Previously treated with Fosamax from 2019 or [id number]. She has been on drug holiday. L-spine x-ray 04/2023 reveals possibility of L4 compression fracture Code(s): M85.80 - Other specified disorders of bone density and structure, unspecified site Category: Medical Qualifiers: Osteopenia location: unspecified Qualified Code(s): M85.80 - Other specified disorders of bone density and structure, unspecified site Plan: MRI lumbar spine ordered Labs ordered: Calcium, albumin, vitamin-D. At this time she is not taking calcium or vitamin-D supplement. I recommended last visit that patient contact PCP for bone density Return to clinic in 3 months (4) Sjogren syndrome: Comment: Secondary Sjogren syndrome is controlled. Dry mouth is controlled on pilocarpine. Code(s): M35.00 - Sjogren syndrome, unspecified Category: Medical Qualifiers: Sjogren organ or system involvement: without extraglandular involvement Qualified Code(s): M35.00 - Sjogren syndrome, unspecified Plan: Continue pilocarpine 5 mg t.i.d. Return to clinic in 3 months (5) Other [place] [facility]current[facility] drug therapy: Code(s): Z79.899 - Other buttermaker helper (current) drug therapy Category: Medical Plan: See above (6) Raynaud disease: Comment: Controlled with conservative management Code(s): I73.00 - Raynaud's syndrome without gangrene Category: Medical Qualifiers: Raynaud?s-associated gangrene presence: without gangrene Qualified Code(s): I73.00 - Raynaud's syndrome without gangrene Plan: Continue conservative management Return to clinic in 3 months Plan See above Orders: Orders MR lumbar spine wo/w con Today S32.040A - Wedge compression fracture of fourth lumbar vertebra, initial encounter for closed fracture Anti DNA DS Antibody Today M32.9 - Systemic lupus erythematosus, unspecified Complement C3 Today M32.9 - Systemic lupus erythematosus, unspecified Complement C4 Today M32.9 - Systemic lupus erythematosus, unspecified C Reactive Protein Today M32.9 - Systemic lupus erythematosus, unspecified UA w Microscopic Today M32.9 - Systemic lupus erythematosus, unspecified Alanine Aminotransferase Today Z79.60 - termite control technician (current) use of unspecified immunomodulators and immunosuppressants Vitamin D 25-OH Total Today M32.9 - Systemic lupus erythematosus, unspecified, M85.80 - Other specified disorders of bone density and structure, unspecified site Erythrocyte Sedimentation Rate Today M32.9 - Systemic lupus erythematosus, unspecified Protein Creatinine Ratio, Ur Today M32.9 - Systemic lupus erythematosus, unspecified Aspartate Amino Transferase Today Z79.60 - termite control technician (current) use of unspecified immunomodulators and immunosuppressants Complete Blood Count Auto Diff Today Z79.60 - termite control technician (current) use of unspecified immunomodulators and immunosuppressants Creatinine Today Z79.60 - shelter (current) use of unspecified immunomodulators and immunosuppressants Protein Electrophoresis, Serum Today M32.9 - Systemic lupus erythematosus, unspecified, M35.00 - Sjogren syndrome, unspecified Calcium Today M32.9 - Systemic lupus erythematosus, unspecified, M35.00 - Sjogren syndrome, unspecified Albumin Level Today M85.80 - Other specified disorders of bone density and structure, unspecified site Medications: New hydroxychloroquine 200 mg PO DAILY 90 tabs 1RF pilocarpine HCl 5 mg PO TID 90 tabs 3RF Coding Level of Care Code Est Pt Level 5 (21908) Complex EM visit Add On G2211 Diagnoses Compression fracture of L4 vertebra, initial encounter S3.A Encounter type: initial encounter Systemic lupus erythematosus, unspecified SLE type, unspecified organ i nvolvement status M32.9 Systemic lupus erythematosus organ involvement: unspecified Systemic lupus erythematosus type: unspecified Osteopenia, unspecified location M85.80 Osteopenia location: unspecified Sjogren's syndrome without extraglandular involvement M35.00 Sjogren organ or system involvement: without extraglandular involvement Other buttermaker helper (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 Time Spent (min) 40
--- OUTSIDE RECORDS SUMMARY | 2024-05-15 08:25 | XMS_ITS | Continuity of Care Document ---
Author Name [facility] Organization [facility] Care Team Providers Care Utility Systems Repairer Operator Name Role Phone [facility] Unavailable Unavailable Problems Problem Status Onset Date Classification Date Reported Comments Source Generalized weakness 08/10/2018 08/11/[address] [facility] Jaw pain 08/10/2018 08/11/[address] Acute UTI 08/10/2018 08/11/2018 45 [facility] Syncope, near 08/10/2018 08/11/2018 [facility] ill feeling 08/10/2018 08/11/[address] [facility] EKG abnormalities 08/10/2018 08/11/2018 45 [facility] Medications Medication Details Route Status Patient Instructions Ordering Provider Order Date Source Sulfamethoxazole 800 MG / Trimethoprim 160 MG Oral Tablet [Bactrim] = 1 Tab, ORAL, BID, X 5 Day(s), # 10 Tab, Indication= Urinary Tract Infection (UTI), 0 Refill(s), Acute Active 019 45 [facility] Allergies, Adverse Reactions, Alerts Substance Category Reaction Severity Reaction type Status Date Reported Comments Source codeine Assertion Drug allergy Active 45 [facility] penicillin Assertion Drug allergy Active 45 [facility] estrogens Assertion Drug allergy Active 45 [facility] Macrodantin Assertion Drug allergy Active 45 [facility] Ceclor Assertion Drug allergy Active 45 [facility] spironolacton e and analogues Assertion Drug allergy Active 45 [facility] Results Order Name Results Value Reference Range Date Interpretation Comments Source DDimerQnt D-Dimer, Qnt 0.55 mg/L - <=0.50 08/10 H Based on calender feeder 's specificatio ns, PE/DVT risk related cutoff at0.50 mg/L the assay had a sensitivity of 97%, specificity of 42%, andNPV of 98% for ruling out PE/DVT. [facility] AutoDiff* Auto Neutrophil Percent 53.2 % 40.0 - 80.0 08/10 NA [facility] AutoDiff* Auto Neutrophil Absolute 3.2 K/uL 08/10 NA [facility] AutoDiff* Auto Lymphocyte Percent 30.9 % 18.0 - 45.0 08/10 NA [facility] AutoDiff* Auto Lymphocyte Absolute 1.9 K/uL 08/10 NA [facility] AutoDiff* Auto Monocyte Percent 11.5 % 3.0 - 12.0 08/10 NA [facility] AutoDiff* Auto Monocyte Absolute 0.7 K/uL 08/10 NA [facility] AutoDiff* Auto Eosinophil Percent 3.3 % - <=7.0 08/10 NA [facility] AutoDiff* Auto Eosinophil Absolute 0.2 K/uL 08/10 NA [facility] AutoDiff* Auto Basophil Percent 1.1 % - <=2.0 08/10 NA [facility] AutoDiff* Auto Basophil Absolute 0.1 K/uL 08/10 NA [facility] CBC WBC 6.0 K/uL 3.5 - 10.4 08/10 NA [facility] CBC RBC 4.57 M/uL 3.60 - 5.40 08/10 NA [facility] CBC HGB 13.2 gm/dL 12.0 - 16.0 08/10 NA [facility] CBC HCT 41.3 % 37.0 - 47.0 08/10 NA [facility] CBC MCV 90.4 fL 82.0 - 101.0 08/10 NA [facility] CBC MCH 28.9 pg 26.0 - 34.0 08/10 NA [facility] CBC MCHC 31.9 gm/dL 32.0 - 36.0 08/10 L [facility] CBC RDW 14.2 % 11.0 - 15.0 08/10 NA [facility] CBC PLT 219 K/uL 140 - 440 08/10 NA [facility] CBC MPV 8.5 fL 7.9 - 10.8 08/10 NA [facility] CMP Sodium Level 140 mmol/L 136 - 145 08/10 NA [facility] CMP Potassium Level 3.4 mmol/L 3.5 - 5.1 08/10 L [facility] CMP Chloride Level 107 mmol/L 98 - 107 08/10 NA [facility] CMP CO2/Carbon Dioxide 24 mmol/L 21 - 32 08/10 NA [facility] CMP Anion Gap 9 mmol/L 4 - 16 08/10 [facility] CMP Glucose, Random 104 mg/dL 70 - 95 08/10 H Reference ranges are based on a fasting specimen. [facility] CMP BUN 16 mg/dL 7 - 20 08/10 [facility] CMP Creatinine 0.7 mg/dL 0.6 - 1.1 08/10 NA [facility] CMP BUN/Creat Ratio 22.9 08/10 [facility] CMP Osmolality, Calculated 291 08/10 [facility] CMP Calcium Level 9.0 mg/dL 8.6 - 10.0 08/10 [facility] CMP Total Protein 7.3 gm/dL 6.4 - 8.2 08/10 [facility] CMP Albumin Level 4.1 gm/dL 3.5 - 5.0 08/10 NA [facility] CMP Globulin Level 3.2 gm/dL 2.0 - 4.0 08/10 [facility] CMP A/G Ratio 1.3 1.1 - 2.2 08/10 [facility] CMP ALP 50 units/L 38 - 126 08/10 NA [facility] CMP ALT 14 units/L 10 - 40 08/10 [facility] CMP AST 19 units/L 15 - 41 08/10 [facility] CMP Bilirubin, Total 0.5 mg/dL - <=1.0 08/10 NA [facility] CMP GFR - Non >60 mL/min/1.7 3m2 08/10 NA <60 = Renal Insufficienc y, <15 = Renal Failure. This equation is not applicable to person's under 18 years of age.eGFR calculation based on the IDMS traceable four-paramet er MDRD equation. [facility] CMP GFR - >60 mL/min/1.7 3m2 08/10 NA [facility] Trop Troponin I <0.02 ng/mL - <=0.05 08/10 NA Elevated TnI results can be seen in any condition resulting in myocardial cell damage. These include, but are not limited to myocardial infarction, myocarditis, trauma, cardiac surgery, and congestive heart failure. It may also be elevated in some patients with renal failure and pulmonary embolism. Please correlate results with all other clinical findings. In some cases, serial TnI testing may be helpful for interpretati on. [facility] UADwMCSIf UA - Source/Collec t Type Urine Clean Cat 08/[address] [facility] UADwMCSIf UA - Appearance CLEAR Clear 08/[address] [facility] UADwMCSIf UA - Color YELLOW 08/[address] [facility] UADwMCSIf UA - pH 6.0 5.0 - 8.0 08/[address] [facility] UADwMCSIf UA - Specific [place] 1.010 1.010 - 1.025 08/[address] [facility] UADwMCSIf UA - Protein NEGATIVE Negative 08/[address] [facility] UADwMCSIf UA - Glucose NEGATIVE Negative 08/10 [facility] UADwMCSIf UA - Ketones NEGATIVE Negative 08/10 [facility] UADwMCSIf UA - Bilirubin NEGATIVE Negative 08/[address] [facility] UADwMCSIf UA - Blood NEGATIVE Negative 08/[address] [facility] UADwMCSIf UA - Urobilinogen 0.2 0.1 - 1.0 08/[address] [facility] UADwMCSIf UA - Nitrites NEGATIVE Negative 08/10 [facility] UADwMCSIf UA - Leukocyte Esterase SMALL Negative 08/10 * [facility] UADwMCSIf UA Micro Y/N Yes 08/[address] [facility] UADwMCSIf Urine Culture Y/N Yes 08/10 NA [facility] UAMicro* UA - WBC 6-10 /HPF 0 - 5 08/10 * [facility] UAMicro* UA - RBC 0-2 /HPF 0 - 2 08/10 NA [facility] UAMicro* UA - Bacteria Moderate /HPF Negative 08/10 * [facility] UAMicro* UA - Epithelials, Squamous Few 08/10 NA [facility] C Urine C Urine Final:DANIEL ECTION SITE OR METHOD: CLEAN CATCH Urine Culture Report Status: FINAL Culture Organism: GREATER THAN 100,000 ORGANISMS/ ML ESCHERICH IA COLI Amikacin S =32 Ampicillin -Sulbactam I 16.0 Cefepime S =320 Ertapenem S <=0.5 Susceptibi lities are reported with CLSI interpreta tion of S , I ,or R and an GARDENIA (Minimum Inhibitory Conc.) in mcg/ml. If an GARDENIA is not reported, testing was performed by an alternate method. R = Resistant I = Intermedia te, results are equivocal. Infecting organism may be inhibited only by blood levels achieved with maximum dosages indicated in the drug insert literature . S = Susceptibl e NOTE: Penicillin and Ampicillin susceptibl e results for Enterococc i implies the need for high dose Penicillin and Ampicillin therapy. High dose Penicillin and Ampicillin therapy for serious enterococc al infections (eg. endocardit is) requires combined therapy with other antibiotic s (CLSI M100-S, updated annually). Additional antibiotic sensitivit y tests and results are available on request from the microbiolo gy laboratory , or contact the Microbiolo gy Respiratory Therapy Assistant for consultati on. Performed at: [facility], CLIA# [id number] [place] [address] 08/10 [facility] Diagnostic Reports Report Value Date Source Chest 1 Vw Portable INDICATION: Weakness COMPARISON: None. TECHNIQUE: AP upright chest x-ray was obtained. FINDINGS: There is no focal consolidation, pleural effusion or pneumothorax. The cardiomediastinal silhouette is within normal limits. Regional osseous structures are unremarkable. IMPRESSION: No acute cardiopulmonary findings. 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 History source: Patient. Arrival mode: Private vehicle. History limitation: None. Additional information: Patient's physician(s), Chief Complaint from Nursing Triage Note : Reason for visit history 08/10/2018 13:28 HST Patient presents for generalized weakness, multiple near syncopal episodes X 4 days. Ttoday the patient experienced left jaw pain at 04:00 am. Patient went the [facility] where ECG abnormalities were appreciated. . History of Present Illness The patient presents with Chief Complaint: Abnormal EKG, Near Syncope History of present illness: 68-year-old female with history of a cardiac ablation for SVT, atrial flutter, and bronchitis presents for an abnormal EKG and near syncope. Patient states he has been having near syncopal episodes, but no actual syncope. She is also suspicious of a urinary tract infection, but denies any urinary symptoms. She then presented to her primary care physician, Dr. Saez, for evaluation and it was discovered that her blood pressure was elevated to 180/90s and her EKG was abnormal. Staff recommended that she come to the Emergency Department for evaluation. She currently notes feeling lightheaded with mild left eye swelling, but has no other medical complaints. . Review of Systems Constitutional symptoms: no fever, no weakness. Skin symptoms: no rash. Eye symptoms: left eye swelling , no pain. ENMT symptoms: no sore throat. Respiratory symptoms: no shortness of breath. Cardiovascular symptoms: no chest pain. Gastrointestinal symptoms: no abdominal pain. Genitourinary symptoms: no dysuria. Musculoskeletal symptoms: no Joint pain. Neurologic symptoms: near syncope, lightheaded, no dizziness. Psychiatric symptoms: no anxiety. Allergy/immunologic symptoms: no impaired immunity. Health Status Allergies: Allergic Reactions (All) Severity Not Documented Ceclor- No reactions were documented. Codeine- No reactions were documented. Estrogens- No reactions were documented. Macrodantin- No reactions were documented. Penicillin- No reactions were documented. Spironolactone and analogues- No reactions were documented.. Medications: (Selected) . Past Medical/ Family/ Social History Medical history: cardiac ablation for SVT, atrial flutter, and bronchitis. Surgical history: no pertinent surgical history. Family history: Not significant. Social history: lives with family . Physical Examination Vital Signs Vital Signs 08/10/2018 13:28 HST Temperature (F) 98.1 DegF Normal Pulse rate 114 bpm HI Respiratory rate 20 br/min Normal Systolic BP 182 mmHg HI Diastolic BP 96 mmHg HI Pulse Oximetry 96 % Temp site Oral . Normal pulse oximetry. General: Alert, no acute distress. Skin: Warm, dry, pink. Head: Normocephalic, atraumatic. Neck: Supple. Eye: Pupils are equal, round and reactive to light, extraocular movements are intact, normal conjunctiva. Ears, nose, mouth and throat: Oral mucosa moist. Cardiovascular: Regular rate and rhythm, Normal peripheral perfusion, No edema. Respiratory: Lungs are clear to auscultation, respirations are non-labored, breath sounds are equal. Gastrointestinal: Soft, Nontender, Non distended. Musculoskeletal: Normal ROM, no swelling, no deformity. Neurological: Alert and oriented to person, place, time, and situation, No focal neurological deficit observed, normal sensory observed, normal motor observed, normal speech observed. Psychiatric: Cooperative. Medical Decision Making Documents reviewed: Emergency department nurses' notes. Orders Launch Order Profile (Selected) Inpatient Orders Ordered Cardiac Monitorin08/10/18 13:44:00 HST, Continuous Order, Cardiac monitoring Discharge Patient (ED): 08/10/18 16:07:00 HST, 08/10/18 16:07:00 HST, 08/10/18 16:07:00 HST Saline Lock: 08/10/18 13:44:00 HST, NOW, Stop Dt/Tm 08/10/18 13:44:00 HST Ordered (Collected) Culture Urine: 08/10/18 13:57:00 HST, ONCE, Daniel Priority: Stat Rpt Priority: Stat, Collected Nurse Collect, Urine Clean Catch, Stop D/ HST Ordered (Exam Completed) XR Chest 1 Vw Portable: 08/10/18 13:44:00 HST, Stat, Reason: Weakness, Standard, OK Completed Bactrim DS 800-160 mg: = 1 Tab, ORAL, ONCE, Indication= Intra-abdominal source, TAB, 08/10/18 16:43:00 HST, Stop date 08/10/18 16:43:00 HST CBC w Differential: 08/10/18 13:44:00 HST, ONCE, Daniel Priority: Stat Rpt Priority: Stat, Not Collected Lab Collect, Blood, Stop Dt/Tm 08/10/18 13:45:00 HST CMP Comprehensive Metabolic Panel: 08/10/18 13:44:00 HST, ONCE, Daniel Priority: Stat Rpt Priority: Stat, Not Collected Lab Collect, Blood, Stop Dt/Tm 08/10/18 13:45:00 HST D Dimer Quantitative: 08/10/18 14:14:00 HST, ONCE, Daniel Priority: Stat Rpt Priority: Stat, Not Collected Lab Collect, Blood, Stop Dt/Tm 08/10/18 14:14:00 HST Differential Automated*: 08/10/18 13:57:00 HST, ONCE, Daniel Priority: Stat Rpt Priority: Stat, Collected Lab Collect, Blood, Stop Dt/Tm 08/10/18 13:57:00 HST Serum Indices: 08/10/18 13:57:00 HST, ONCE, Daniel Priority: Stat Rpt Priority: Stat, Collected Lab Collect, Blood, Stop Dt/Tm 08/10/18 13:57:00 HST Troponin I: 08/10/18 13:44:00 HST, ONCE, Stat, Not Collected Lab Collect, Blood, Stop Dt/Tm 08/10/18 13:45:00 HST UA Dipstick w Microscopic+C/S IF Ind: 08/10/18 13:44:00 HST, ONCE, Stat, Not Collected Nurse Collect, Urine Clean Catch, Stop D/ HST Urinalysis Microscopic*: 08/10/18 13:57:00 HST, ONCE, Stat, Collected Nurse Collect, Urine Clean Catch, Stop D/ HST Completed (Signed) EKG 12 Lead - CV (ED): 08/10/18 14:10:00 HST, Stat, Weakness, NOW. Electrocardiogram: Time 08/10/2018 12:49:00, SINUS TACHYCARDIA WITH OCCASIONAL VENTRICULAR PREMATURE COMPLEXES MINIMAL ST DEPRESSION [0.025+ mV ST DEPRESSION]. Electrocardiogram: Time 08/10/2018 13:54:00, Sinus tachycardia, 104 beats a minute, PVC noted, no ST elevation. Results review: Lab results : Lab 08/10/2018 14:38 HST D-Dimer, Qnt 0.55 mg/L HI 08/10/2018 13:57 HST WBC 6.0 K/uL Normal RBC 4.57 M/uL Normal HGB 13.2 gm/dL Normal HCT 41.3 % Normal MCV 90.4 fL Normal MCH 28.9 pg Normal MCHC 31.9 gm/dL LOW RDW 14.2 % Normal PLT 219 K/uL Normal MPV 8.5 fL Normal Auto Neutrophil Percent 53.2 % Normal Auto Lymphocyte Percent 30.9 % Normal Auto Monocyte Percent 11.5 % Normal Auto Eosinophil Percent 3.3 % Normal Auto Basophil Percent 1.1 % Normal Auto Neutrophil Absolute 3.2 K/uL NA Auto Lymphocyte Absolute 1.9 K/uL NA Auto Monocyte Absolute 0.7 K/uL NA Auto Eosinophil Absolute 0.2 K/uL NA Auto Basophil Absolute 0.1 K/uL NA Sodium Level 140 mmol/L Normal Potassium Level 3.4 mmol/L LOW Chloride Level 107 mmol/L Normal CO2/Carbon Dioxide 24 mmol/L Normal Anion Gap 9 mmol/L Normal Glucose, Random 104 mg/dL HI BUN 16 mg/dL Normal Creatinine 0.7 mg/dL Normal GFR - Non >60 mL/min/1.73m2 NA GFR - >60 mL/min/1.73m2 NA BUN/Creat Ratio 22.9 NA Osmolality, Calculated 291 NA Calcium Level 9.0 mg/dL Normal Total Protein 7.3 gm/dL Normal Albumin Level 4.1 gm/dL Normal Globulin Level 3.2 gm/dL Normal A/G Ratio 1.3 Normal Bilirubin, Total 0.5 mg/dL Normal ALP 50 units/L Normal ALT 14 units/L Normal AST 19 units/L Normal Troponin I <0.02 ng/mL Normal UA - Source/Collect Type Urine Clean Cat UA - Color Yellow UA - Appearance Clear UA - Specific [place] 1.010 UA - pH 6.0 UA - Protein Negative UA - Glucose Negative UA - Ketones Negative UA - Bilirubin Negative UA - Blood Negative UA - Urobilinogen 0.2 UA - Nitrites Negative UA - Leukocyte Esterase Small UA - WBC 6-10 /HPF UA - RBC 0-2 /HPF UA - Epithelials, Squamous Few UA - Bacteria Moderate /HPF Urine Culture Y/N Yes . Radiology results: X-ray, 1 view chest x-ray interpreted by EP as: Negative. No cardiomegaly, no effusion, no infiltrate. Notes: The patient is a 68-year-old female who presents to the emergency department with generalized weakness, and an abnormal EKG. EKG was nonspecific. Given her symptoms and recent generally did do a d-dimer. It was within the normal range for her age group based on the protocol. Patient was found to have a urinary tract infection which she has had in the past. Given her allergies, patient was placed on Bactrim. I explained to her that there is significant resistance that she may need to be changed to a different antibiotic. She is returning home, and understands the need for close follow-up, and return precautions.. Impression and Plan Diagnosis Acute UTI Generalized weakness Plan Condition: Stable. Disposition: Discharged: to home. Patient was given the following educational materials: UTI (Cystitis), Female (Adult) (Custom). Follow up with: Follow up with primary care provider Within 2-3 days;. Counseled: Patient, Regarding diagnosis, Regarding diagnostic results, Regarding treatment plan, Patient indicated understanding of instructions. Notes: Natiibe Attestation: By signing my name below, IAris, attest that this documentation has been prepared under the direction and in the presence of Concepcion Villalta MD. Electronically signed: Krzysztof King, August 10, 2018, 5:00 PM. . 08/10/2018 [facility] Vital Signs Vital Sign Value Date Comments Source Pulse rate 95 bpm 08/11/2018 45 [facility] Respiratory rate 18 br/min 08/11/2018 45 [facility] Temperature (F) 97.5 [degF] 08/11/2018 45 [facility] Pulse Oximetry 97 % 08/11/[address] [facility] Systolic BP 132 mm[Hg] 08/11/2018 45 [facility] Diastolic BP 77 mm[Hg] 08/11/2018 45 [facility] Pulse Oximetry 96 % 08/11/[address] [facility] Systolic BP 141 mm[Hg] 08/11/2018 45 [facility] Diastolic BP 82 mm[Hg] 08/11/2018 45 [facility] Neurological norm WDL (08/10/18 1:51 PM) 08/10/2018 45 [facility] Temperature (F) 98.1 [degF] 08/10/2018 45 [facility] Pulse rate 114 bpm 08/10/2018 45 [facility] Pulse Oximetry 96 % 08/10/[address] [facility] Respiratory rate 20 br/min 08/10/2018 45 [facility] HeightLength (cm) 170 cm 08/10/2018 [facility] Weight (kg) 90 kg 08/10/2018 45 [facility] Systolic BP 182 mm[Hg] 08/10/2018 45 [facility] Diastolic BP 96 mm[Hg] 08/10/2018 45 [facility] Dose calculation weight (kg) 90 kg 08/10/2018 45 [facility] Encounters Location Location Details Encounter Type Encounter Number Reason For Visit Attending Provider ADM Date DC Date Status Source 45 45 [facility] Outpatient [id number] FLUTTER TACHYCARD IA [place] 08/10 Active [facility] 45 45 [facility] Emergency [id number] ABNORMAL ELECTROCA RDIOGRAM Concepcion Villalta 08/10 Active [facility] Procedures Procedure Code Date Perfomer Comments Source ROUTINE VENIPUNCTURE [id number] 08/11/2018 45 [facility] ROUTINE VENIPUNCTURE [id number] 08/10/2018 45 [facility] Plan of Care Plan of Care Date Source Diagnostic Tests PendingCult ure Urine 08/10/18 08/11/2018 45 [facility]
--- OUTSIDE RECORDS SUMMARY | 2024-05-15 08:25 | XMS_ITS | Encounter Summary ---
Author Organization [facility] Address [address] [place] [address] Care Team Providers Care Office Equipment Mechanic Name Role Phone Ani Stearns NP Primary Care Provi elena Encounter Details Date Type Department Care Team ([facility] st Contact Info) Description 05/15/2023 Orders Only [facility] [address] [place] [address] Jacqui Moran, BRIDGETT 31 [facility] [address] [place] [address] Other hammer toe(s) (acquired), right foot (Primary Dx) Social History Tobacco Use Types Packs/Day Years Used Date Smoking Tobacco: Former Smokeless Tobacco: Never Comments:QUIT 40 YEARS AGO Alcohol Use Standard Drinks/Week Comments Yes 1 (1 standard drink = 0.6 oz pur e alcohol) 1 GLASS OF WINE A MONTH AUDIT-C Answer Date Recorded Q1: How often do you have a drink containing alcohol? Never 09/07/2021 Q2: How many drinks containi ng alcohol do you have on a typical day when you are drinking? Patient does not drink Q3: How often do you have si x or more drinks on one occasion? Never 09/07/2021 Sex and Gender Information Value Date Recorded Sex Assigned at Female 07/24/2022 4:28 PM EDT Gender Identity Female 07/24/2022 4:28 PM EDT Sexual Orientation Choose not to disclose 2022 4:28 PM EDT documented as of this encounter Plan of Treatment Upcoming Encounters Date Type Department Care Team (Late st Contact Info) Description 05/29/2024 2:45 PM EDT Consult [facility] [address] [place] [address] Justin Yoo MD [address] [place] [address] 10/07/2024 3:50 PM EDT Office Visit [facility] Neu[facility] [place] [address] [facility] [address] [place] [address] Lee Medley, BRIDGETT [address] [facility] [address] [place] [address] documented as of this encounter Visit Diagnoses Diagnosis Other hammer toe(s) (acquired), right foot- Primary documented in this encounter Care Teams Office Equipment Mechanic Relationship Specialty Start Date End Date Ani Stearns NP [address] [place] [address] [place] [address] PCP - General 08/14/20 documented as of this encounter
--- OUTSIDE RECORDS SUMMARY | 2024-05-15 08:25 | XMS_ITS | Encounter Summary ---
Author Organization [facility] Address [address] [place] [address] Care Team Providers Care Actuarial Science Professor Name Role Phone Ani Stearns NP Primary Care Provi elena Encounter Details Date Type Department Care Team (Late st Contact Info) Description 05/21/2023 Scanned Document [facility] [place] [address] Mariusz Howell MD [address] [place] [address] Social History Tobacco Use Types Packs/Day Years [...] 2:45 PM EDT Consult [facility] [address] [place] [address] Justin Yoo MD [address] [facility] [address] [place] [address] 10/07/2024 3:50 PM EDT Office Visit [facility] [place] [address] [facility] [address] [place] [address] Lee Medley APRN [address] [facility] [address] [place] [address] documented as of this encounter Visit Diagnoses Not on filedocumented in this encounter Care Teams Actuarial Science Professor Relationship Specialty Start Date End Date Ani Stearns NP [address] [place] [address] [place] [address] PCP - General 08/14/20 documented as of this encounter
--- OUTSIDE RECORDS SUMMARY | 2024-05-15 08:25 | XMS_ITS | Encounter Summary ---
Author Organization [facility] Address [address] [place] [address] Care Team Providers Care Locate Technician Name Role Phone Ani Stearns NP Primary Care Provi elena Encounter Details Date Type Department Care Team (Late st Contact Info) Description 05/21/2023 Scanned Document [facility] [address] Mariusz Howell MD [address] [place] [address] Social History Tobacco Use Types Packs/Day Years [...] 2:45 PM EDT Consult [facility] [address] [place] [address] Justin Yoo MD [address] [facility] [address] [place] [address] 10/07/2024 3:50 PM EDT Office Visit [facility] Neurology [place] 35 [facility] [address] [place] [address] Lee Medley APRN 35 [facility] [address] [place] [address] documented as of this encounter Visit Diagnoses Not on filedocumented in this encounter Care Teams Locate Technician Relationship Specialty Start Date End Date Ani Stearns NP [address] [place] [address] [place] [address] PCP - General 08/14/20 documented as of this encounter
--- OUTSIDE RECORDS SUMMARY | 2024-05-15 08:25 | XMS_ITS | Clinical Summary ---
Author Organization [facility] Address [address] [place] [address] Care Team Providers Care Straw Hat Machine Operator Name Role Phone Ct Bui DO Primary Care Provider [phone] Allergies Active Allergy Reactions Criticality Noted Date Comments Cefaclor Anaphylaxis High 06/21/2016 Iodine 06/21/2016 Medications Medication Sig Dispensed Refills Start Date End Date Status levothyroxine (SYNTHROID, LEVOXYL) tablet 100 mcg Take 112 mcg by mouth every morning on an empty stomach. 0 Active hydrochlorothiazide (HYDRODIURIL) tablet 25 mg Take 25 mg by mouth daily. 0 Active Active Problems Problem Noted Date Diagnosed Date History of frequent urinary tract infections Voiding dysfunction 07/06/2016 Family History Medical History Relation Name Comments Cancer Father Heart disease Mother Relation Name Status Comments Father Mother Social History Tobacco Use Types Packs/Day Years Used Date Smoking Tobacco: Former Sex and Gender Information Value Date Recorded Sex Assigned at Female 10/29/2020 2:53 PM EDT Gender Identity Not on file Sexual Orientation Not on file Job Start Date Occupation Industry Not on file Not on file Not on file Last Filed Vital Signs Vital Sign Reading Time Taken Comments Blood Pressure 143/75 07/05/2016 2:52 PM EDT Pulse 114 07/05/2016 2:52 PM EDT Temperature 36.4 ??C (97.5 ??F) 07/05/2016 2:52 PM ED T Respiratory Rate - - Oxygen Saturation - - Inhaled Oxygen Concentration - - Weight 108.9 kg (240 lb) 07/05/2016 2:52 PM EDT Height - - Body Mass Index - - Plan of Treatment Health Maintenance Due Date Last Done Comments Hepatitis C Screening 1950 COVID-19 Vaccine (#1) 01/31/1949 Depression Screening 1960 Preventative Health Evaluation 1966 DTap / Tdap / Td (1 - Tdap) 08/01/1967 Colon Cancer Screening (Colonoscopy) 1993 Shingrix-Zoster Vaccine (1 of 2) 1998 Fall Risk Assessment 2013 Osteoporosis Screening (DEXA Scan) 2013 Pneumococcal Vaccine (1 of 1 - PCV) 2013 RSV Adult > 60+ Yrs or Pregn ant (1 - 1-dose 75+ series) 08/01/2023 Influenza Vaccine (#1) 2023 Hepatitis B Vaccines Aged Out No long er eligible based on patient's age to complete this topic RSV Ped < 20 months Aged Out No longe r eligible based on patient's age to complete this topic Care Teams Straw Hat Machine Operator Relationship Specialty Start Date End Date Ct Bui DO [address] [place] [address] [address] [place] [address] PCP - General Internal Medicine 06/21/16
--- OUTSIDE RECORDS SUMMARY | 2024-05-15 08:25 | XMS_ITS | Encounter Summary ---
Author Organization [facility] Address [address] [place] [address] Care Team Providers Care Field Service Consultant Name Role Phone Ani Stearns NP Primary Care Provi elena Encounter Details Date Type Department Care Team (Late st Contact Info) Description 05/08/2023 Scanned Document [facility] [place] [address] Mariusz Howell MD [address] [place] [address] Social History Tobacco Use Types Packs/Day Years [...] 2:45 PM EDT Consult [facility] [address] [place] [address] Justin Yoo MD [address] [facility] [address] [place] [address] 10/07/2024 3:50 PM EDT Office Visit [facility] Neurology [place] 35 [facility] [address] [place] [address] Lee Medley APRN [address] [facility] [address] [place] [address] documented as of this encounter Visit Diagnoses Not on filedocumented in this encounter Care Teams Field Service Consultant Relationship Specialty Start Date End Date Ani Stearns NP [address] [place] [address] [place] [address] PCP - General 08/14/20 documented as of this encounter
--- OUTSIDE RECORDS SUMMARY | 2024-05-15 08:25 | XMS_ITS | Clinical Summary ---
Author Organization [facility] it[facility] Address [address] [place] [address] Care Team Providers Care Insolvency Practitioner Name Role Phone Ct Bui Primary Care Provider [phone] Social History Tobacco Use Types Packs/Day Years Used Date Smoking Tobacco: Never Assessed Comments Unknown Sex and Gender Information Value Date Recorded Sex Assigned at Not on file Legal Sex Female 1:12 AM EST Gender Identity Not on file Sexual Orientation Not on file Plan of Treatment Health Maintenance Due Date Last Done Comments DTaP,Tdap,and Td Vaccines (1 - Tdap) 08/01/1967 Pneumococcal Vaccine: 50+ Ye ars (1 of 1 - PCV) 1998 Zoster Vaccines (1 of 2) 1998 RSV Immunization Patients 60 + Years Old (1 - 1-dose 75+ series) 08/01/2023 COVID-19 Vaccine ( - 2023-2 5 season) 2023 Influenza Vaccine (#1) 2023 HIB Vaccines Aged Out No longer eligi ble based on patient's age to complete this topic HPV Vaccines Aged Out No longer eligi ble based on patient's age to complete this topic Hepatitis A Vaccines Aged Out No long er eligible based on patient's age to complete this topic Hepatitis B Vaccines Aged Out No long er eligible based on patient's age to complete this topic IPV Vaccines Aged Out No longer eligi ble based on patient's age to complete this topic MMR Vaccines Aged Out No longer eligi ble based on patient's age to complete this topic Meningococcal ACWY Vaccine Aged Out N o longer eligible based on patient's age to complete this topic Meningococcal B Vacine Aged Out No lo nger eligible based on patient's age to complete this topic RSV Immunization Patients Un elena 20 months Aged Out No longer eligible b ased on patient's age to complete this topic Varicella Vaccines Aged Out No longer eligible based on patient's age to complete this topic Care Teams Insolvency Practitioner Relationship Specialty Start Date End Date Ct Bui DO [address] [place] [address] Dr B[address] [place] [phone] PCP - General Internal Medicine 06/21/16
--- OUTSIDE RECORDS SUMMARY | 2024-05-15 08:25 | XMS_ITS | Encounter Summary ---
Author Organization [facility] Address [address] [place] [address] Care Team Providers Care Gastroenterology Teacher Name Role Phone Ani Stearns NP Primary Care Provi elena Encounter Details Date Type Department Care Team ([facility] st Contact Info) Description 11/22/2023 Scanned Document [facility] [address] [place] [phone] Mariusz Howell MD [address] [place] [id number] Social History Tobacco Use Types Packs/Day Years [...] more drinks on one occasion? Never 09/07/2021 PHQ-2 Answer Date Recorded PHQ-2 Total Score 0 06/20/2023 Sex and Gender Information Value Date Recorded Sex Assigned at Female 07/24/2022 4:28 PM EDT Gender Identity Female 07/24/2022 4:28 PM EDT Sexual Orientation Choose not to disclose 2022 4:28 PM EDT documented as of this encounter Plan of Treatment Upcoming Encounters Date Type Department Care Team (Late st Contact Info) Description 05/29/2024 2:45 PM EDT Consult [facility] [address] [place] [address] Justin Yoo MD [address] [facility] [address] [place] [address] 10/07/2024 3:50 PM EDT Office Visit [facility] Neurology [place] [address] [facility] [address] [place] [address] Lee Medley, BRIDGETT 35 [facility] [address] [place] [address] documented as of this encounter Visit Diagnoses Not on filedocumented in this encounter Care Teams Gastroenterology Teacher Relationship Specialty Start Date End Date Ani Stearns NP [address] [place] [address] [place] [address] PCP - General 08/14/20 documented as of this encounter
--- OUTSIDE RECORDS SUMMARY | 2024-05-15 08:25 | XMS_ITS | Encounter Summary ---
Author Organization [facility] Address [address] [place] [address] Care Team Providers Care Pm Technician Name Role Phone Ani Stearns NP Primary Care Provi elena Reason for Visit * Reason Comments Pain Encounter Details Date Type Department Care Team (Late st Contact Info) Description 05/08/2024 4:45 PM EST Consult [facility] [address] [phone] Wili Schwab PA [address] [facility] [address] [place] [address] Pain of right hip (Primary Dx); Spondylosis of lumbar region without myelopathy or radiculopathy Social History Tobacco Use Types Packs/Day Years [...] PM EDT documented as of this encounter Progress Notes * PAWAN Avila - 05/08/2024 4:45 PM EST Images from the original note were not included. [facility] [address] [facility] [address] [phone] Encounter Date: 05/08/24 Assessment & Plan 1. Pain of right hip - XR Hip w pelvis 2 or 3 views-Right; Future - XR Hip w pelvis 2 or 3 views-Right - XR Lumbar spine 1 view; Future - XR Lumbar spine 1 view 2. Spondylosis of lumbar region without myelopathy or radiculopathy - cyclobenzaprine (FLEXERIL) 5 MG tablet; Take 1 tablet (5 mg total) by mouth 3 times daily (every 8 hours) as needed for muscle spasms. Dispense: 20 tablet; Refill: 0 - dexAMETHasone (DECADRON) 2 MG tablet; Take 1 tablet (2 mg total) by mouth 2 (two) times a day with meals. For 5 days then take 1 tab for 5 days Dispense: 15 tablet; Refill: 0 Plan: -A prescription of dexamethasone and Flexeril called in for the patient. -Patient was given a list of our back and hip specialist to follow-up with. -Ice and elevation. -Continue with Lidoderm patch and Tylenol as needed. Referral and Follow-up Referral: Timing: If a follow-up appointment has been made, the patient may call the referral practice for more immediate care if issues arise prior to this appointment. Alternatively, if the referral practice is unable to accommodate a more urgent concern the patient is encouraged to re-visit the urgent care for reassessment.. History of Present Illness: Linda Funes is a 73 y.o. female who presents today in the Urgent Care Clinic for Chief Complaint Patient presents with Right Hip - Pain . Symptoms have been present for 3 days. The mechanism of injury is reported as patient stated she was standing her driveway and walkways and the next day she could not put weight on her right leg due to the pain. She has been using crutches that have been helping her get around since. And reported precipitating factors are pain with weightbearing to right lower extremity. Currently the patient reports the following limitations: Additional information: . Past Medical History Past Medical History: Diagnosis Date Allergies Cardiac dysrhythmia, unspecified Cardiac Catheter His Ablation: 2011-10-05 10:33:19 Depression Disease of thyroid gland Hypertension Lupus Lupus Other specified cardiac dysrhythmias(427.89) Supraventricular Tachycardia: 2011-10-05 10:33:19 Unspecified asthma(493.90) Asthma: 2011-10-05 10:33:19 Past Surgical History: Procedure Laterality Date CARDIAC ELECTROPHYSIOLOGY MAPPING AND ABLATION FOOT SURGERY Right 05/2023 reconstrontion GA APPENDECTOMY Appendectomy: 2011-10-05 10:33:19 GA DESTRUCTION VAGINAL LESIONS SIMPLE Ablation Of Vaginal Lesion(S): 2011-10-05 10:33:19 GA TONSILLECTOMY PRIMARY/SECONDARY <AGE 12 Tonsillectomy: 2011-10-05 10:33:19 GA UNLISTED PROCEDURE URINARY SYSTEM Bladder Surgery: 2011-10-05 10:33:19 TONSILECTOMY, ADENOIDECTOMY, BILATERAL MYRINGOTOMY AND TUBES Family History Problem Relation Age of Onset Heart disease Brother Thyroid disease Daughter Social History Tobacco Use Smoking status: Former Smokeless tobacco: Never Tobacco comments: QUIT 40 YEARS AGO Vaping Use Vaping status: Never Used Substance Use Topics Alcohol use: Yes Alcohol/week: 1.0 standard drink of alcohol Types: 1 Glasses of wine per week Comment: 1 GLASS OF WINE A MONTH Drug use: Never Medication List Current Outpatient Medications: acetaminophen (TYLENOL) 500 MG tablet, Take 1 tablet (500 mg total) by mouth 4 times daily (every 6hours) as needed for mild pain or moderate pain., Disp: 84 tablet, Rfl: 0 albuterol (PROVENTIL HFA; VENTOLIN HFA) 108 (90 Base) MCG/ACT inhaler, Inhale 2 puffs daily., Disp:, Rfl: ascorbic acid (VITAMIN C) 250 MG tablet, Take 2 tablets (500 mg total) by mouth daily., Disp: , Rfl: aspirin enteric coated (ECOTRIN LOW STRENGTH) 81 MG EC tablet, Take 1 tablet (81 mg total) by mouthdaily., Disp: , Rfl: cyclobenzaprine (FLEXERIL) 5 MG tablet, Take 1 tablet (5 mg total) by mouth 3 times daily (every 8 hours) as needed for muscle spasms., Disp: 20 tablet, Rfl: 0 dexAMETHasone (DECADRON) 2 MG tablet, Take 1 tablet (2 mg total) by mouth 2 (two) times a day with meals. For 5 days then take 1 tab for 5 days, Disp: 15 tablet, Rfl: 0 finasteride (PROSCAR) 5 MG tablet, Take 2.5 mg by mouth daily., Disp: , Rfl: Flovent Diskus 250 MCG/BLIST diskus inhaler, , Disp: , Rfl: Flovent HFA 220 MCG/ACT inhaler, Inhale 2 puffs daily., Disp: , Rfl: furosemide (LASIX) 20 MG tablet, Take 5 mg by mouth daily., Disp: , Rfl: hydroCHLOROthiazide (HYDRODIURIL) 25 MG tablet, Take 1 tablet (25 mg total) by mouth., Disp: , Rfl: hydroxychloroquine (PLAQUENIL) 200 MG tablet, Take 1 tablet (200 mg total) by mouth every morning with breakfast., Disp: , Rfl: levothyroxine (SYNTHROID, LEVOTHROID) 112 MCG tablet, Take 2 tablets (224 mcg total) by mouth once a week. On Sundays, Disp: , Rfl: MAGNESIUM PO, Take 1 tablet by mouth daily., Disp: , Rfl: methenamine (MANDELAMINE) 1 GM tablet, Take 1 tablet (1,000 mg total) by mouth 2 (two) times a day., Disp: , Rfl: Myrbetriq 25 MG ER tablet, Take 1 tablet (25 mg total) by mouth., Disp: , Rfl: pilocarpine (SALAGEN) 5 MG tablet, Take 1 tablet (5 mg total) by mouth nightly., Disp: , Rfl: propranolol (INDERAL) 10 MG tablet, Take 1 tablet (10 mg total) by mouth 2 (two) times a day., Disp: 60 tablet, Rfl: 3 Restasis 0.05 % ophthalmic emulsion, Administer 1 drop to both eyes 2 (two) times a day., Disp: , Rfl: Sod Fluoride-Potassium Nitrate (Sodium Fluoride 5000 Sensitive) 1.1-5 % Gel, BRUSH DIRECTED BY DENTIST, Disp: , Rfl: Vitamin D3 (CHOLECALCIFEROL) 50 MCG (2000 UT) tablet, Take 1 tablet (2,000 Units total) by mouth daily., Disp: , Rfl: vitamin E 400 UNIT capsule, Take 1 capsule (400 Units total) by mouth daily., Disp: , Rfl: Allergies Allergies Allergen Reactions Cefaclor Anaphylaxis Delayed anaphylaxis Iodinated Contrast Media Shortness Of Breath Other Shortness Of Breath IV contrast media Erythromycin Hives Estrogens Hives and Other (See Comments) Norethin-Eth Estrad Triphasic Swelling swelling joints Nsaids Hives Penicillins Hives and Rash/Dermatitis Codeine Other (See Comments) Iodine Itching Nitrofurantoin GI Intolerance/Nausea/Vomiting and Nausea And Vomiting Other reaction(s): GI Intolerance Spironolactone Rash/Dermatitis Physical Exam Well nourished, well developed.female In no acute distress. Alert & oriented x 3. Ortho Exam Extremities: Patient extensor mechanism intact she can straight leg raise without complications. She has pain on palpation to the right gluteal region. EHL and FHL intact. Deep tendon reflexes normal. Calves are soft nontender. Imaging / Data Review HH pelvis with right lateral hip and lateral lumbar x-ray: Patient has some arthritic changes in the right hip no fractures were ascertained. X-ray of her lateral lumbar spine shows she has loss of lordosis with disc degeneration L3-L4 L4-L5 L5-S1. Question if there is a compression fracture at L4 area. Procedure(s) PAWAN Avila, PhD documented in this encounter Plan of Treatment Upcoming Encounters Date Type Department Care Team (Late st Contact Info) Description 05/29/2024 2:45 PM EDT Consult [facility] [address] [address] Justin Yoo MD [address] [place] [address] [address] [place] [id number] 10/07/2024 3:50 PM EDT Office Visit [facility] Neurology [address] [place] [address] Lee Medley, BRIDGETT 35 [facility] [address] [place] [address] documented as of this encounter Procedures Procedure Name Priority Date/Time Associated Diagnosis Comments XR LUMBAR SPINE 1 VIEW Routine 05/08/2024 4:47 PM EST Pain of right hip XR HIP W PELVIS 2 OR 3 VIEWS-RIGHT Routine 05/08/2024 4:47 PM EST Pain of right hip documented in this encounter Results * XR Lumbar spine 1 view (05/08/2024 4:47 PM EST) Narrative [facility] - 05/08/2024 4:47 PM EST [facility] and images reviewed by orthopedic provider. ??Any findings are documented within ambulatory encounter note on date of service. Wili LIUG DIAGNOSTIC I MAGING ORDERABLES Performing Organization Address [facility] de Phone Number OAH * XR Hip w pelvis 2 or 3 views-Right (05/08/2024 4:47 PM EST) Narrative [facility] - 05/08/2024 4:47 PM EST This exam [facility] and images reviewed by orthopedic provider. ??Any findings are documented within ambulatory encounter note on date of service. Wili LIUG DIAGNOSTIC I MAGING ORDERABLES Performing Organization Address [facility] Co de Phone Number [facility] documented in this encounter Visit Diagnoses Diagnosis Pain of right hip- Primary Spondylosis of lumbar region without myelopathy or radiculopathy documented in this encounter Care Teams Pm Technician Relationship Specialty Start Date End Date Ani Stearns NP [address] [place] [address] Dr [place], MICHAEL [address] PCP - General 08/14/20 documented as of this encounter
--- OUTSIDE RECORDS SUMMARY | 2024-05-15 08:25 | XMS_ITS | Encounter Summary ---
Author Organization [facility] Address [address] [place] [address] Care Team Providers Care Battery Vent Plug Inserter Name Role Phone Ani Stearns NP Primary Care Provi elena Encounter Details Date Type Department Care Team (Late st Contact Info) Description 05/07/2023 Scanned Document [facility] [place] [address] Mariusz Howell MD [address] [place] [address] Social History Tobacco Use Types Packs/Day Years [...] 2:45 PM EDT Consult [facility] [place] [address] [place] [address] Justin Yoo MD [address] [facility] [address] [place] [address] 10/07/2024 3:50 PM EDT Office Visit [facility] Neurology [place] 35 [facility] [address] [place] [address] Lee Medley APRN 35 [facility] [address] [place] [address] documented as of this encounter Visit Diagnoses Not on filedocumented in this encounter Care Teams Battery Vent Plug Inserter Relationship Specialty Start Date End Date Ani Stearns NP [address] [place] [address] [place] [address] PCP - General 08/14/20 documented as of this encounter
--- OUTSIDE RECORDS SUMMARY | 2024-05-15 08:25 | XMS_ITS | Continuity of Care Document ---
Author Organization [facility] Address [address], [address] [place] [address]- Care Team Providers Care Retail Customer Service Representative Name Role Phone Jinny JOHNSTON, Ani Looney Primary Care Physician [phone] [id number] Date(s): 04/09/24 - 05/09/24 [facility] [address] [place], [place] [address] Encounter Type: Triage Allergies, Adverse Reactions, Alerts Substance Criticality Severity Reaction Reaction Severity Status codeine Unable to assess criticality Persistent Severe urinary retention; vision changes Active erythromycin Unable to assess criticality Persistent Severe rash Active penicillin Unable to assess criticality Persistent Severe rash Active Macrodantin Unable to assess criticality Persistent Severe N/V; diarrhea Active Ceclor 1 Unable to assess criticality Persistent Severe anaphylaxis Active Contrast Dye Unable to assess criticality Persistent Severe Shortness of breath Active Other Food Allergy 2 Unable to assess criticality Persistent Severe mouth blisters Melon Pineapple 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 NSAIDs 3 Unable to assess criticality Persistent Severe Hives Active 1anaphylactic 2all these foods give pt mouth blisters 3Ok with Aleve Immunizations Given and Recorded Vaccine Date Status Refusal Reason SARS-CoV-2 (COVID-19) mRNA BNT-162b2 vac 12/19/20 Recorded SARS-CoV-2 (COVID-19) mRNA BNT-162b2 vac 04/19/20 Recorded SARS-CoV-2 (COVID-19) mRNA BNT-162b2 vac 03/29/20 Recorded Medications biotin 10 mg oral tablet 1 tablet = 10 mg, By Mouth, Daily, Maintenance, 04/05/18 10:01:20 AM EST, Tablet Start Date: 04/05/18 Status: Ordered Repeat number: 1 Ellura oral capsule = 36 mg, By Mouth, Daily, Maintenance, 04/05/18 10:02:11 AM EST Start Date: 04/05/18 Status: Ordered Repeat number: 1 Flovent Diskus 1 puff, Inhalation, Daily, 0 Refills, Maintenance, 07/08/12 3:13:49 PM EDT Start Date: 07/08/12 Status: Ordered Repeat number: 1 Lasix 20 mg oral tablet 10 mg, 0.5, tablet, By Mouth, Daily, Refills 0, Maintenance, 09/10/16 10:08:07 AM EDT Start Date: 09/10/16 Status: Ordered Repeat number: 1 Lasix 20 mg oral tablet 20 mg, 1, tablet, By Mouth, Daily, Refills 0, Maintenance, 05/14/20 1:41:00 PM EST, Partial fill uponpatient request if the prescription is for a schedule II opioid drug. Start Date: 05/14/20 Status: Ordered Repeat number: 1 methenamine hippurate 1 gm oral tablet See Instructions, TAKE 1 TABLET BY MOUTH TWICE A DAY FOR 30 DAYS, # 180 tablet, 3 Refills, Maintenance, 04/17/24 12:10:00 PM EST, [facility] #[id number], 180, cm, 03/13/23 7:52:00 EST, Height, 94.7, kg, 02/05/23 15:36:00 EST, Dry Weight Start Date: 04/17/24 Status: Ordered Quantity: 180.0 Unit: tablet Repeat number: 4 Myrbetriq 50 mg oral tablet, extended release 1 tablet = 50 mg, By Mouth, Daily, # 90 tablet, 3 Refills, Maintenance, 04/17/24 12:11:00 PM EST, [facility] #[id number], Partial fill upon patient request if the prescription is for a schedule II opioid drug., 180, cm, 03/13/23 7:52:00 EST, Height, 94.7, kg, 02/05/23 15:36:00 EST, Dry Weight Start Date: 04/17/24 Status: Ordered Quantity: 90.0 Unit: tablet Repeat number: 4 PEG-3350 with Electrolytes (Eqv-GoLYTELY) oral powder for reconstitution See Instructions, as directed by office, # 1 each, 0 Refills, Maintenance, 03/13/23 8:32:00 AM EST, [id number], OK to sub any gallon prep, as directed by office, 180, cm, 03/13/23 7:52:00 EST, Height, 94.7, kg, 02/05/23 15:36:00 EST, Dry Weight Start Date: 03/13/23 Status: Ordered Quantity: 1.0 Unit: each Repeat number: 1 PEG-3350 with Electrolytes (Eqv-GoLYTELY) oral powder for reconstitution See Instructions, as directed by office, # 2 each, 0 Refills, Maintenance, 03/13/23 12:44:00 PM EST, [id number], OK to sub any gallon prep- patient will do TWO preps for colonoscopy, as directed by office, 180, cm, 03/13/23 7:52:00 EST, Height, 94.7, kg, 02/05/23 15:36:00 EST, Dry Weight Start Date: 03/13/23 Status: Ordered Quantity: 2.0 Unit: each Repeat number: 1 pilocarpine 5 mg oral tablet 1 tablet = 5 mg, By Mouth, Daily at bedtime, 0 Refills, Maintenance, 02/26/18 3:53:52 PM EST Start Date: 02/26/18 Status: Ordered Repeat number: 1 Plaquenil = 200 mg, By Mouth, 2 times a day, 0 Refills, Maintenance, 10/09/19 2:11:00 PM EDT Start Date: 10/09/19 Status: Ordered Repeat number: 1 primidone 50 mg oral tablet Refills 0, Maintenance, 08/22/22 8:20:00 AM EDT, Partial fill upon patient request if the prescription is for a schedule II opioid drug. Start Date: 08/22/22 Status: Ordered Repeat number: 1 ProAir HFA 2 puffs, Inhalation, 4 times a day, PRN Wheezing/Shortness of Breath, 0 Refills, Maintenance, 07/08/12 3:13:59 PM EDT Start Date: 07/08/12 Status: Ordered Repeat number: 1 Restasis Every 12 hours, 0 Refills, Maintenance, 08/22/22 8:19:00 AM EDT, Partial fill upon patient request if the prescription is for a schedule II opioid drug. Start Date: 08/22/22 Status: Ordered Repeat number: 1 Synthroid 112 mcg, By Mouth, Daily, Refills 0, Maintenance, 10/09/19 2:11:00 PM EDT Start Date: 10/09/19 Status: Ordered Repeat number: 1 trimethoprim 100 mg oral tablet 1 tablet = 100 mg, By Mouth, Daily, Take one after intercourse for UTI prevention, # 10 tablet, 5 Refills, Maintenance, 10/10/22 4:48:00 PM EDT, [facility] #[id number], Partial fill upon patient request ifthe prescription is for a schedule II opioid drug., 180.33, cm, 08/22/22 8:12:00 EDT, Height, 99.3,kg, 08/09/22 11:13:00 EDT, Dry Weight Start Date: 10/10/22 Status: Ordered Quantity: 10.0 Unit: tablet Repeat number: 6 Vitamin C 500 mg oral tablet 1 tablet = 500 mg, By Mouth, 2 times a day, Maintenance, 04/05/18 10:02:49 AM EST, Tablet Start Date: 04/05/18 Status: Ordered Repeat number: 1 Vitamin D3 2000 intl units oral capsule 1 capsule = 2,000 International_Units, By Mouth, Daily, Maintenance, 04/05/18 10:01:51 AM EST Start Date: 04/05/18 Status: Ordered Repeat number: 1 Problem List Condition Confirmation Course Effective Dates Status H ealth Status Informant Pelvic pain Confirmed Active H/O cardiac radiofrequency ablation Confirmed Active 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 Social History Social History Type Response Smoking Status Former smoker; Other : Ages 14-34; entered on: 02/16/17 Sex Sex Representation Female (finding) Patient Care team information Care Team Personnel Name: Ani Stearns NP Position: [facility] Outreach Member Role: PCP Address: [address] [place] [address]- Telecom: Care Team Related Persons Name: JENNIFER ROSARIO Insurance Providers Guarantor name: CHLOE ROSARIO Health Plan Information #: 1 Payer: MEDICARE PART B OUTPT Member Number: NA Policy Number: NA Group Number: NA Health Plan Information #: 2 Payer: MEDEX Member Number: NA Policy Number: NA Group Number: NA
--- OUTSIDE RECORDS SUMMARY | 2024-05-15 08:25 | XMS_ITS | Encounter Summary ---
Author Organization [facility] Address [address] [place] [address] Care Team Providers Care Tunnel Inspector Name Role Phone Ani Stearns NP Primary Care Provi elena Encounter Details Date Type Department Care Team (Late st Contact Info) Description 05/22/2023 Scanned Document [facility] [address] Mariusz Howell MD [address] [place] [address] Social History Tobacco Use Types Packs/Day Years [...] 2:45 PM EDT Consult [facility] [address] [place] [address] Justin Yoo MD [address] [facility] [address] [place] [address] 10/07/2024 3:50 PM EDT Office Visit [facility] Neurology [place] [address] [facility] [address] [place] [address] Lee Medley APRN [address] [facility] [address] [place] [address] documented as of this encounter Visit Diagnoses Not on filedocumented in this encounter Care Teams Tunnel Inspector Relationship Specialty Start Date End Date Ani Stearns NP [address] [place] [address] [place] [address] PCP - General 08/14/20 documented as of this encounter
--- OUTSIDE RECORDS SUMMARY | 2024-05-15 08:26 | XMS_ITS | Encounter Summary ---
Author Organization [facility] Address [address] [place] [id number] Care Team Providers Care Child And Family Services Specialist Name Role Phone Ani Stearns Liz VICKIE Primary Care Provi elena Encounter Details Date Type Department Care Team (Late st Contact Info) Description 06/02/2020 Erroneous Encounter [facility] [address] [place] [address] Provider, MD Dexter Social History Tobacco Use Types Packs/Day Years Used Date Smoking Tobacco: Never Assessed Sex and Gender Information Value Date Recorded Sex Assigned at Female 07/24/2022 4:28 PM EDT Gender Identity Female 07/24/2022 4:28 PM EDT Sexual Orientation Choose not to disclose 2022 4:28 PM EDT COVID-19 Exposure Response Date Recorded In the last month, have you been in contact with someone who was confirmed or suspected to have Coronavirus / COVID-19? Unable to assess 05/28/2020 11:11 AM EDT documented as of this encounter Plan of Treatment Upcoming Encounters Date Type Department Care Team (Late st Contact Info) Description 05/29/2024 2:45 PM EDT Consult [facility] [address] [place] [phone] Justin Yoo MD [address] [place] [address] [address] [place] [address] 10/07/2024 3:50 PM EDT Office Visit [facility] Neurology [address] [place] [address] Lee Medley, BRIDGETT [address] [facility] [address] [place] [address] documented as of this encounter Visit Diagnoses Not on filedocumented in this encounter Care Teams Child And Family Services Specialist Relationship Specialty Start Date End Date Ani Stearns NP [address] [place] [address] [place] [address] PCP - General 08/14/20 documented as of this encounter
--- OUTSIDE RECORDS SUMMARY | 2024-05-15 08:26 | XMS_ITS | Clinical Summary ---
Author Organization [facility] Address [address] [place] [address] Care Team Providers Care Director Business Development Name Role Phone Unavailable Primary Care Provider Unavailabl e Social History Tobacco Use Types Packs/Day Years Used Date Smoking Tobacco: Never Assessed Comments Unknown Sex and Gender Information Value Date Recorded Sex Assigned at Not on file Legal Sex Female 6:17 AM EST Gender Identity Not on file Sexual Orientation Not on file Plan of Treatment Not on file
--- OUTSIDE RECORDS SUMMARY | 2024-05-15 08:26 | XMS_ITS | Encounter Summary ---
Author Organization [facility] Address [address] [place] [address] Care Team Providers Care Piper Helper Name Role Phone Jinny Ani Liz VICKIE Primary Care Provi elena Encounter Details Date Type Department Care Team (Latest Contact Info) Description 05/28/2020 Lab Requisition [facility] COVID Drive Through [address] [place] [address] [address] [place] [address] Mariusz Howell MD [address] [place] [address] Encounter for laboratory testing for COVID-19 virus Social History Tobacco Use Types Packs/Day Years [...] 2:45 PM EDT Consult [facility] [address] [place] [phone] Justin Yoo MD [address] [place] [address] 10/07/2024 3:50 PM EDT Office Visit [facility] Neurology [place] [address] [facility] [address] [place] [phone] Lee Medley, ROLL OVER LOADER [address] [facility] [place] [facility] [address] [place], [place] [address] documented as of this encounter Procedures Procedure Name Priority Date/Time Associated Diagnosis Comments COVID-19 (SARS-COV-2) ANNALISE Routine 05/28/2020 10:52 AM EDT Encounter for laboratory testing for COVID-19 virus [ICD-10-CM] documented in this encounter Results * COVID-19 (SARS-CoV-2), ANNALISE (In-House) (05/28/2020 10:52 AM EDT) SARS CoV 2 Not Detected Not Detected 05/28/2020 2:08 PM EDT [facility] Comment: Negative results do not preclude SARS-CoV-2 (COVID-19)infection and should not be used as the sole basis for treatment or other patient management decisions. The SARS-CoV-2 (Covid-19) Nucleic Acid Amplification Assay is limited to laboratories certified under the Clinical Laboratory Improvement Amendments of 1988 (CLIA), 42 U.S.C. 263a, to perform high complexity tests. Nucleic acid amplication tests include RT-PCR and TMA. This assay has not been FDA cleared or approved, however, this assay has been authorized by the Food and Drug Administration (FDA) under an Emergency Use Authorization (EUA). ??Validation was completed and performance characteristics established by [facility] as per the FDA and CLIA requirement for this EUA. The Aptima SARS-CoV-2 assay Letter of Authorization, along with the authorized Fact Sheet for Healthcare Providers, the authorized Fact Sheet for Patients, and authorized labeling are available on the FDA website: https://www.fda.gov/medical-devices/aayrofckr-ovaqillsje-xcraohy-devices/emergen - v-thohngimnwwztf-spfnpqy-devices. Performed at [facility], [place], [place] License [id number] ??CLIA [id number] Source Nasopharyngeal 05/28/2020 2:08 PM EDT [facility] Comment:Performed at [facility], [facility], [place] license No. [id number] CLIA No. [id number] Microbiology Nasopharyngeal swab / Unknown 05/28/2020 10:52 AM EDT 05/28/2020 10:53 AM EDT Mariusz Howell MD MICROBIOLOGY - GENER AL ORDERABLES [facility] [address] [place] [address] documented in this encounter Visit Diagnoses Diagnosis Encounter for laboratory testing for COVID-19 virus documented in this encounter Care Teams Piper Helper Relationship Specialty Start Date End Date Ani Setarns NP [address] [place] [address] [place] [address] PCP - General 08/14/20 documented as of this encounter
--- OUTSIDE RECORDS SUMMARY | 2024-05-15 08:26 | XMS_ITS | Clinical Summary ---
Author Organization [facility] Address [address] [place] [address] Care Team Providers Care Health And Wellness Coach Name Role Phone Jinny Ani Hill NP Primary Care Provi elena Allergies Active Allergy Reactions Criticality Noted Date Comments Cefaclor Anaphylaxis High 01/04/2015 Delayed anaphylaxis Codeine Other (See Comments) 08/14/2020 Erythromycin Hives Medium 08/14/2020 Estrogens Hives,Other (See Comments) Medium 01/04/2015 Iodinated Contrast Media Shortness Of Breath High 09/07/2021 Iodine Itching Low 06/21/2016 Nitrofurantoin GI Intolerance/Nausea/V omiting,Nausea And Vomiting Low 01/04/2015 Other reaction(s): GI Intolerance Norethin-Eth Estrad Triphasic Swelling Medium 08/14/2020 swelling joints Nsaids Hives Medium 08/14/2020 Other Shortness Of Breath High 02/15/2017 IV contrast media Penicillins Hives,Rash/Dermatiti s Medium 01/04/2015 Spironolactone Rash/Dermatitis Low 01/04/2015 Medications Medication Sig Dispensed Refills Start Date End Date Status pilocarpine (SALAGEN) 5 MG tablet Take 1 tablet (5 mg total) by mouth nightly. 05/19/2020 Active methenamine (MANDELAMINE) 1 GM tablet Take 1 tablet (1,000 mg total) by mouth 2 (two) times a day. 07/19/2020 Active furosemide (LASIX) 20 MG tablet Take 5 mg by mouth daily. 05/26/2020 Active Flovent HFA 220 MCG/ACT inhaler Inhale 2 puffs daily. 06/09/2020 Active albuterol (PROVENTIL HFA; VENTOLIN HFA) 108 (90 Base) MCG/ACT inhaler Inhale 2 puffs daily. Active Restasis 0.05 % ophthalmic emulsion Administer 1 drop to both eyes 2 (two) times a day. 08/23/2021 Active hydroxychloroquine (PLAQUENIL) 200 MG tablet Take 1 tablet (200 mg total) by mouth every morning with breakfast. 08/23/2021 Active Vitamin D3 (CHOLECALCIFEROL) 50 MCG (2000 UT) tablet Take 1 tablet (2,000 Units total) by mouth daily. Active levothyroxine (SYNTHROID, LEVOTHROID) 112 MCG tablet Take 2 tablets (224 mcg total) by mouth once a week. On Sundays Active vitamin E 400 UNIT capsule Take 1 capsule (400 Units total) by mouth daily. Active ascorbic acid (VITAMIN C) 250 MG tablet Take 2 tablets (500 mg total) by mouth daily. Active Flovent Diskus 250 MCG/BLIST diskus inhaler 09/09/2021 Active acetaminophen (TYLENOL) 500 MG tabletIndications:Oth er hammer toe(s) (acquired), right foot Take 1 tablet (500 mg total) by mouth 4 times daily (every 6 hours) as needed for mild pain or moderate pain. 84 tablet 05/15/2023 Active finasteride (PROSCAR) 5 MG tablet Take 2.5 mg by mouth daily. 06/03/2023 Active Myrbetriq 25 MG ER tablet Take 1 tablet (25 mg total) by mouth. Active aspirin enteric coated (ECOTRIN LOW STRENGTH) 81 MG EC tablet Take 1 tablet (81 mg total) by mouth daily. 05/17/2023 Active hydroCHLOROthiazide (HYDRODIURIL) 25 MG tablet Take 1 tablet (25 mg total) by mouth. Active MAGNESIUM PO Take 1 tablet by mouth daily. Active Sod Fluoride-Potassium Nitrate (Sodium Fluoride 5000 Sensitive) 1.1-5 % Gel BRUSH DIRECTED BY DENTIST 08/27/2023 Active propranolol (INDERAL) 10 MG tabletIndications:Ess ential tremor Take 1 tablet (10 mg total) by mouth 2 (two) times a day. 60 tablet 3 03/20/2024 Active cyclobenzaprine (FLEXERIL) 5 MG tabletIndications:Spo ndylosis of lumbar region without myelopathy or radiculopathy Take 1 tablet (5 mg total) by mouth 3 times daily (every 8 hours) as needed for muscle spasms. 20 tablet 05/08/2024 Active dexAMETHasone (DECADRON) 2 MG tabletIndications:Spo ndylosis of lumbar region without myelopathy or radiculopathy Take 1 tablet (2 mg total) by mouth 2 (two) times a day with meals. 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 Class 1 obesity 06/20/2023 06/20/2023 Pelvic pain 06/20/2023 06/20/2023 VAIN (vaginal intraepithelial neoplasia) 024 06/20/2023 Atherosclerosis of coronary artery 01/17/2022 06/20/2023 Overview (06/20/2023): Last Assessment & Plan: Linda has long history of multiple cardiac symptoms like palpitation fatigue shortness of breath etc. She has been on baby aspirin. I reviewed her stress test it did not show any ischemia we will continue to follow her and she will stay on baby aspirin through her PCP. Chronic diastolic heart failure 01/17/2022 06/20/2023 Overview (06/20/2023): Last Assessment & Plan: Linda has history of shortness of breath, fatigue etc. and she also has history of hypertension she has been treated with furosemide 20 mg daily I wonder if she has longstanding chronic diastolic heart failure. We will check a BNP and echocardiogram for LV function assessment systolic and diastolic function. Dyspnea on effort 01/17/2022 06/20/2023 Overview (06/20/2023): Last Assessment & Plan: Linda gives history of dyspnea on effort and some fatigue. 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 Her LV function as checked by nuclear stress test was on lower end of normal we will review an echocardiogram make sure she does not have any cardiomyopathy or valvular heart disease that is silent with auscultation. Palpitations 01/17/2022 06/20/2023 Overview (06/20/2023): Last Assessment & Plan: Linda has this history of palpitation for last 5 years but is worse for last few months. Her electrocardiogram did not show any PVC or PAC atrial flutter or fibrillation. She does have history of AVNRT ablation she also has history of atrial flutter according to the chart but I did not see any rhythm strips. At this point I will order a Holter monitor because her symptoms are on daily occurrence. SVT (supraventricular tachycardia) 09/14/2021 Overview (09/14/2021): history of ablation Last Assessment & Plan: -History of ablation for her SVT. She indicates that her daughter and granddaughter have also now needed ablations for SVT. She has not felt recurrence. She does feel occasional approximately 20 sec episodes of racing heart at times in the mornings, but says that the does not necessarily feel like her SVT. She knows to report this if returns. -She was previously on metoprolol succinate 12.5 mg daily, but stopped this on her own. This can be considered to be restarted if needed. Vulvar intraepithelial neoplasia (MARGO) grade 1 0 09/14/2021 Gait instability 09/07/2021 Lightheadedness 09/07/2021 SLE (systemic lupus erythematosus) 09/07/2021 History of shingles 09/07/2021 Hypothyroidism 09/07/2021 Essential tremor 09/07/2021 Asthma 09/07/2021 Strain of biceps tendon 07/24/2017 Asthma 02/28/2017 Atrial flutter by electrocardiogram 02/22/2017 Overview (09/14/2021): Last Assessment & Plan: Recent event monitor showed no evidence of atrial arrhythmia including atrial flutter. She has had no further complaints of palpitations since starting Plaquenil for her connective tissue disorder. She will follow up in one year or sooner if needed. Degenerative tear of lateral meniscus of left kn ee 02/22/2017 History of arthroscopy of left knee 02/22/2017 Mixed hyperlipidemia 02/22/2017 Hematuria 02/15/2017 History of frequent urinary tract infections Voiding dysfunction 07/06/2016 Synovial cyst of popliteal space 11/08/2011 Essential hypertension 10/05/2011 Overview (09/14/2021): Last Assessment & Plan: -Blood pressure well controlled in the office. She is only on Lasix 10 mg daily for blood pressure control. She was previously on metoprolol and HCTZ in the past. -She also has worked hard on a heart healthy diet and is motivated to increase her exercise and lose weight. 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 Hypothyroidism 10/05/2011 Dysplasia of vagina 11/08/2010 Abnormal glandular Papanicolaou smear of cervix 01/18/2009 Encounters Date Type Department Care Team Description 05/08/2024 4:50 PM EST [facility]illary [facility] [address] [phone] 05/08/2024 4:45 PM EST [facility] [address] [phone] Wili Schwab PA Pain of right hip (Primary Dx); Spondylosis of lumbar region without myelopathy or radiculopathy 03/20/2024 11:30 AM EST Office Visit [facility] [address] [phone] Lee Medley APRN Essential tremor (Primary Dx) 03/20/2024 Travel 02/28/2024 10:45 AM EST [facility] Visit [facility] [address] [place] [address] Jacqui Moran APRN Osteoarthritis of ankle and foot, right (Primary Dx) from Last 3 Months Immunizations Name Administration Dates Next Due Covid-19 MRNA Vaccine - Pfiz er 12+ (Purple Cap) 12/19/2020,04/19/2020,03/29/2020 Family History Medical History Relation Name Comments Heart disease Brother Thyroid disease Daughter Relation Name Status Comments Brother Alive Daughter Alive Father Mother Social History Tobacco Use Types Packs/Day Years Used Date Smoking Tobacco: Former Smokeless Tobacco: Never Tobacco Cessation:Counseling Given: Not Answered Comments:QUIT 40 YEARS AGO Alcohol Use Standard [...] not to disclose 2022 4:28 PM EDT Last Filed Vital Signs Vital Sign Reading Time Taken Comments Blood Pressure 130/78 03/20/2024 11:33 AM EST per patient request Pulse 90 03/20/2024 11:33 AM EST Temperature 36.5 ??C (97.7 ??F) 11/22/2023 6 :08 PM EDT Respiratory Rate 16 11/22/2023 6:08 PM EDT Oxygen Saturation 95% 11/22/2023 6:0 8 PM EDT Inhaled Oxygen Concentration - - Weight 95.3 kg (210 lb) 03/20/2024 11:2 5 AM EST Height 185.4 cm (6' 1 ) 03/20/2024 11:2 5 AM EST Body Mass Index 27.71 03/20/2024 11:25 AM EST Plan of Treatment Upcoming Encounters Date Type Department Care Team (Late st Contact Info) Description 05/29/2024 2:45 PM EDT Consult [facility] [place] [address] [place] [address] Justin Yoo MD [address] [place], [place] 10/07/2024 3:50 PM EDT Office Visit [facility] [place] [address] [facility] [address] [place] [phone] Lee Medley, BRIDGETT [address] [facility] [address] [place] [address] Health Maintenance Due Date Last Done Comments Hepatitis C Virus Screening 1950 DTaP/Tdap/Td Vaccines (1 - Tdap) 08/01/1967 Pneumococcal Vaccines 50+ (1 of 2 - PCV) 08/01/1967 Zoster (Shingles) Vaccine (1 of 2) 08/01/1967 Mammogram 1988 Colonoscopy 1993 DXA Bone Density (Females,Ages 65 and older) 2013 RSV Vaccine 60 years and older and Patients (1 - 1-dose 75+ series) 08/01/2023 Influenza Vaccine 10/11/2023 COVID-19 Vaccine ( season) 2023 12/19/2020, 12/17/2020, 04/19/2020, Additional history exists Hepatitis B Vaccines Aged Out No long er eligible based on patient's age to complete this topic Procedures Procedure Name Priority Date/Time Associated Diagnosis Comments XR LUMBAR SPINE 1 VIEW Routine 4:47 PM EST Pain of right hip XR HIP W PELVIS 2 OR 3 VIEWS-RIGHT Routine 05/08/2024 4:47 PM EST Pain of right hip MT ARTHROCENTESIS ASPIR&/INJ SMALL JT/BURSA W/O US Routine 02/28/2024 10:45 AM EST Osteoarthritis of ankle and foot, right from Last 3 Months Results * XR Lumbar spine 1 view (05/08/2024 4:47 PM EST) Narrative [facility] - 05/08/2024 4:47 PM EST This exam was performed in office at [facility] and images reviewed by orthopedic provider. ??Any findings are documented within ambulatory encounter note on date of service. Wili LIUG DIAGNOSTIC I MAGING ORDERABLES Performing Organization Address [facility] Co de Phone Number OA * XR Hip w pelvis 2 or 3 views-Right (05/08/2024 4:47 PM EST) Narrative [facility] - 05/08/2024 4:47 PM EST This exam was performed in office at [facility] and images reviewed by orthopedic provider. ??Any findings are documented within ambulatory encounter note on date of service. Wili LIUG DIAGNOSTIC I MAGING ORDERABLES Performing Organization Address [facility] Co de Phone Number OA * MT ARTHROCENTESIS ASPIR&/INJ SMALL JT/BURSA W/O US (02/28/2024 10:45 AM EST) Narrative Jacqui Moran APRN - 02/28/2024 10:45 AM EST Jacqui Moran APRN ? 02/28/2024 12:01 PM Small Joint Arthrocentesis: R medial navicular cuneiform joint on 02/28/2024 10:45 AM Indications: pain Details: 22 G needle, medial approach Medications: 6 mg betamethasone acetate-betamethasone sodium phosphate 6 (3-3) MG/ML Outcome: tolerated well, no immediate complications Procedure, treatment alternatives, risks and benefits explained, specific risks discussed. Consent was given by the patient. Jacqui Moran APRN PROCEDURE/MINOR S URGICAL ORDERABLES from Last 3 Months Advance Directives * Full Code (Latest Code Status on File) Date Activated Date Inactivated Comments 09/07/2021 10:16 AM 11/15/2021 9:23 AM Care Teams Health And Wellness Coach Relationship Specialty Start Date End Date Ani Stearns NP [address] [place] [address] [place] [id number] PCP - General 08/14/20
--- OUTSIDE RECORDS SUMMARY | 2024-05-15 08:26 | XMS_ITS | Encounter Summary ---
Author Organization [facility] Address [address] [place] [address] Care Team Providers Care Facilities Specialist Name Role Phone Ani Stearns NP Primary Care Provi elena Encounter Details Date Type Department Care Team (Late st Contact Info) Description 05/08/2024 4:50 PM EST Ancillary Procedure [facility] [address] [phone] Social History Tobacco Use Types Packs/Day Years [...] Description 05/29/2024 2:45 PM EDT Consult [facility] [address] [phone] Justin Yoo MD [address] [place] [address] 10/07/2024 3:50 PM EDT Office Visit [facility] [place] [address] [facility] [address] [place] [address] Lee Medley, TRAPPER ANIMAL [address] [facility] [address] [place] [address] documented as of this encounter Procedures Procedure Name Priority Date/Time Associated Diagnosis Comments XR LUMBAR SPINE 1 VIEW Routine 05/08/2024 4:47 PM EST Pain of right hip XR HIP W PELVIS 2 OR 3 VIEWS-RIGHT Routine 05/08/2024 4:47 PM EST Pain of right hip documented in this encounter Results * XR Lumbar spine 1 view (05/08/2024 4:47 PM EST) Narrative [facility] - 05/08/2024 4:47 PM EST This exam was performed in office at [facility] and images reviewed by orthopedic provider. ??Any findings are documented within ambulatory encounter note on date of service. Wili VILLALTA IMG DIAGNOSTIC I MAGING ORDERABLES Performing Organization Address [facility] de Phone Number OA * XR Hip w pelvis 2 or 3 views-Right (05/08/2024 4:47 PM EST) Narrative [facility] - 05/08/2024 4:47 PM EST [facility] by [facility] provider. ??Any findings are documented within ambulatory encounter note on date of service. Wili VILLALTA IMG DIAGNOSTIC I MAGING ORDERABLES Performing Organization Address [facility] Co de Phone Number OA documented in this encounter Visit Diagnoses Not on filedocumented in this encounter Care Teams Facilities Specialist Relationship Specialty Start Date End Date Ani Stearns NP [address] [place] [address] Dr Hampton, MICHAEL [address] PCP - General 08/14/20 documented as of this encounter
--- OUTSIDE RECORDS SUMMARY | 2024-05-15 08:26 | XMS_ITS ---
Author Name [facility] Organization Unknown History of Medication Use Medication Directions Dispensed Refills Start Date End Date Stat dexAMETHasone (DECADRON) 2 MG tablet Take 1 tablet (2 mg total) by mouth 2 (two) times a day with meals. For 5 days then take 1 tab for 5 days 05/08/2024 active cyclobenzaprine (FLEXERIL) 5 MG tablet Take 1 tablet (5 mg total) by mouth 3 times daily (every 8 hours) as needed for muscle spasms. 05/08/2024 active oxyCODONE (OXY-IR) 5 MG capsule Take 1 capsule (5 mg total) by mouth 4 times daily (every 6 hours) as needed for severe pain. Max Daily Amount: 20 mg 05/28/2023 4 active oxyCODONE (ROXICODONE) 5 MG immediate release tablet Take 1 tablet (5 mg total) by mouth Every 4 (four) to 6 (six) hours as needed for severe pain. This is a 1 week supply Max Daily Amount: 30 mg 05/21/2023 4 active Flovent Diskus 250 MCG/BLIST diskus inhaler 09/09/2021 active Restasis 0.05 % ophthalmic emulsion Administer 1 drop to both eyes 2 (two) times a day. 08/23/2021 active methenamine (MANDELAMINE) 1 GM tablet Take 1 tablet (1,000 mg total) by mouth 2 (two) times a day. 07/19/2020 active Myrbetriq 25 MG ER tablet Take 25 mg by mouth. active hydroCHLOROthiazide (HYDRODIURIL) 25 MG tablet Take 1 tablet (25 mg total) by mouth. active Flovent Diskus 250 MCG/BLIST diskus inhaler 09/09/2021 active Flovent HFA 220 MCG/ACT inhaler Inhale 2 puffs daily. 06/09/2020 active vitamin E 400 UNIT capsule Take 1 capsule (400 Units total) by mouth daily. active benzonatate (TESSALON) 100 MG capsule Take 1 capsule (100 mg total) by mouth 3 (three) times a day as needed for cough. 11/15/2021 3 aborted aspirin enteric coated (ECOTRIN LOW STRENGTH) 81 MG EC tablet Take 2 tablets (162 mg total) by mouth as needed. 3 aborted MAGNESIUM PO Take 1 tablet by mouth. active hydroxychloroquine (PLAQUENIL) 200 MG tablet 04/27/2021 3 aborted calcium carbonate (OS-ABNER 500) 500 mg Tab tablet Take 1 tablet (1,250 mg total) by mouth 2 (two) times a day with meals. 3 aborted Problems Problem Status Onset Date Problem Type Date of Resolution Source Hypothyroidism active 2011-10-[address] Degenerative tear of lateral meniscus of left knee active 2017-02-22 ProblemAct [facility] History of arthroscopy of left knee active 2017-02-22 ProblemAct [facility] Pain of right hip active EncounterDiagnosisAct [facility] Pelvic pain active 2023-06-20 ProblemAct [facility] Voiding dysfunction active 2016-07-06 ProblemAct [facility] Hematuria active 2017-02-15 ProblemAct [facility] Gait instability active 2021-09-07 ProblemAct [facility] VAIN (vaginal intraepithelial neoplasia) active 2023-06-20 ProblemAct [facility] Synovial cyst of popliteal space active 2011-11-08 ProblemAct [facility] Dyspnea on effort active 2022-01-17 ProblemAct [facility] Aurora's disease active 2011-10-05 ProblemAct [facility] Mixed hyperlipidemia active 2017-02-22 ProblemAct [facility] Abnormal glandular Papanicolaou smear of cervix active 2009-01-18 ProblemAct [facility] SLE (systemic lupus erythematosus) active 2021-09-07 ProblemAct [facility] Essential hypertension active 2011-10-05 ProblemAct [facility] Atrial flutter by electrocardiogram active 2017-02-22 ProblemAct [facility] Chronic diastolic heart failure active 2022-01-17 ProblemAct [facility] AV kiesha re-entry tachycardia active 2023-06-20 ProblemAct [facility] Lightheadedness active 2021-09-07 ProblemAct [facility] History of shingles active 2021-09-07 ProblemAct [facility] Atherosclerosis of coronary artery active 2022-01-17 ProblemAct [facility] Essential tremor active 2021-09-07 ProblemAct [facility] Palpitations active 2022-01-17 ProblemAct [facility] History of frequent urinary tract infections active 2016-07-06 ProblemAct [facility] Spondylosis of lumbar region without myelopathy or radiculopathy active EncounterDiagnosisAct [facility] Vulvar intraepithelial neoplasia (MARGO) grade 1 active 2021-09-14 ProblemAct [facility] T Strain of biceps tendon active 2017-07-24 ProblemAct [facility] Asthma active 2017-02-28 ProblemAct [facility] Class 1 obesity active 2023-06-20 ProblemAct [facility] SVT (supraventricular tachycardia) active 2021-09-14 ProblemAct [facility] Immunizations Vaccine Date Source Lot Number Status Covid-19 MRNA Vaccine - Pfiz er 12+ (Purple Cap) 12/19/2020 [facility] UN[facility] completed Covid-19 MRNA Vaccine - Pfiz er 12+ (Purple Cap) 04/19/2020 [facility] UN[facility] completed Covid-19 MRNA Vaccine - Pfiz er 12+ (Purple Cap) 03/29/2020 [facility] UNK completed
== END 2024-05-15 09:14 | disposition home or self-care (01) ==
PROVIDERS: PCP Nurse Practitioner Adult Health; Visit Provider Internal Medicine Rheumatology
DX: S32.040A Wedge compression fracture of fourth lumbar vertebra, initial encounter for closed fracture (principal); M32.9 Systemic lupus erythematosus, unspecified; M85.80 Other specified disorders of bone density and structure, unspecified site; M35.00 Sjogren syndrome, unspecified; Z79.899 Other long term (current) drug therapy; I73.00 Raynaud's syndrome without gangrene
CPT/HCPCS: 99215; G2211

== ENCOUNTER 2024-05-19 17:56 | Outpatient (REF) | payer MEDICARE, SELFPAY ==
--- NOTE | ~2024-05-19 | MR_ITS ---
CLINICAL HISTORY: S32.040A - Wedge compression fracture of fourth lumbar vertebra, initial... LBP, p ain radiates to right hip/groin (front and back). S/p injury after lifting heavy object on 05/05/24 MR lumbar spine without gadolinium Comparison: None Findings: Moderate levoscoliosis L3-L4 on degenerative basis. No abnormal marrow or soft tissue edema. No acute fracture or pathologic bone lesion. Cauda equina and conus medullaris within normal limits. Moderate to severe multilevel spondylosis of the lumbar spine with degenerative disc desiccation, disc height loss, posterior disc bulges, ligamentum flavum thickening and facet arthropathy. For with the purposes of counting, the last complete disc space is considered as L5-S1. At L1-L2, circumferential disc bulge causing mild spinal canal narrowing. No significant neural foraminal narrowing. At L2-L3, mild spinal canal narrowing no significant neural foraminal narrowing. At L3-L4, mild spinal canal narrowing and moderate right neural foraminal narrowing causing abutment of the exiting L3 nerve root. At L4-L5, mild spinal canal and mild neural foraminal narrowing. At L5-S1, no significant spinal canal or neural foraminal narrowing. Paraspinous musculature intact. IMPRESSION: No evidence of acute fracture or traumatic listhesis of the lumbar spine. No marrow or soft tissue edema. Moderate to severe multilevel spondylosis as detailed in the findings, most notably at L3-L4 with moderate right neural foraminal narrowing causing abutment of the exiting right L3 nerve root. Moderate levoscoliosis at L3-L4 on degenerative basis. This document has been electronically signed by: Adama Howard MD on 05/19/2024 19:32:28
--- OUTSIDE RECORDS SUMMARY | 2024-05-19 18:34 | XMS_ITS | Encounter Summary ---
Author Organization [facility] Address [address] [place] [address] Care Team Providers Care Celluloid Trimmer Name Role Phone Ani Stearns NP Primary Care Provi elena Encounter Details Date Type Department Care Team ([facility] st Contact Info) Description 05/15/2023 Orders Only [facility] [address] [place] [address] Jacqui Moran, BRIDGETT 31 [facility] [address] [place] [address] Other hammer toe(s) (acquired), right foot (Primary [...] 2:45 PM EDT Consult [facility] [place] [address] [place] [address] Justin Yoo MD [address] [facility] [address] [place] [address] 10/07/2024 3:50 PM EDT Office Visit [facility] [place] 35 [facility] [address] [place] [address] Lee Medley, BRIDGETT 35 [facility] [address] [place] [address] documented as of this encounter Visit Diagnoses Diagnosis Other hammer toe(s) (acquired), right foot- Primary documented in this encounter Care Teams Celluloid Trimmer Relationship Specialty Start Date End Date Ani Stearns NP [address] [place] [address] [place] [address] PCP - General 08/14/20 documented as of this encounter
--- OUTSIDE RECORDS SUMMARY | 2024-05-19 18:34 | XMS_ITS | Encounter Summary ---
Author Organization [facility] Address [address] [place] [address] Care Team Providers Care Sericulturist Name Role Phone Jinny Ani Liz VICKIE Primary Care Provi elena Encounter Details Date Type Department Care Team (Latest Contact Info) Description 05/28/2020 Lab Requisition [place] [facility] Through [address] [place] [address] [address] [place] [address] Mariusz Howell MD [address] [place] [address] Encounter for laboratory testing for COVID-19 virus [...] 2:45 PM EDT Consult [facility] [place] [address] [place] [address] Justin Yoo MD 499 [facility] [address] [place] [address] 10/07/2024 3:50 PM EDT Office Visit [facility] [place] 35 [facility] [address] [place] [address] Lee Medley, AGENCY SERVICE COORDINATOR 35 [facility] [address] [place], [place] [address] documented as of this encounter Procedures Procedure Name Priority Date/Time Associated Diagnosis Comments COVID-19 (SARS-COV-2) ANNALISE Routine 05/28/2020 10:52 AM EDT Encounter for laboratory testing for COVID-19 virus [ICD-10-CM] documented in this encounter Results * COVID-19 (SARS-CoV-2), ANNALISE (In-House) (05/28/2020 10:52 AM EDT) SARS CoV 2 Not Detected Not Detected 05/28/2020 2:08 PM EDT [facility] Comment: Negative results do not [...] was completed and performance characteristics established by [facility] as per the FDA and CLIA requirement for this EUA. The Aptima SARS-CoV-2 assay Letter of Authorization, along with the authorized Fact Sheet for Healthcare Providers, the authorized Fact Sheet for Patients, and authorized labeling are available on the FDA website: https://www.fda.gov/medical-devices/gtbfxrrwo-aahkrkotdv-yynkzjk-devices/emergen - n-panldyjcmxhcyu-ikiuwvh-devices. Performed at [facility], [place], [place] ??[place] License 0385 ??CLIA [id number] Source Nasopharyngeal 05/28/2020 2:08 PM EDT [facility] Comment:Performed at [facility], [place] license No. [id number] CLIA No. [id number] Microbiology Nasopharyngeal swab / Unknown 05/28/2020 10:52 AM EDT 05/28/2020 10:53 AM EDT Mariusz Howell MD MICROBIOLOGY - GENER AL ORDERABLES [facility] [address] [place] [address] documented in this encounter Visit Diagnoses Diagnosis Encounter for laboratory testing for COVID-19 virus documented in this encounter Care Teams Sericulturist Relationship Specialty Start Date End Date Ani Stearns NP [address] [place] [address] [place] [address] PCP - General 08/14/20 documented as of this encounter
--- OUTSIDE RECORDS SUMMARY | 2024-05-19 18:34 | XMS_ITS | Clinical Summary ---
Author Organization [facility] Address [address] [place] [address] Care Team Providers Care Refinery Pipeline Operator Name Role Phone Unavailable Primary Care Provider [...]
--- OUTSIDE RECORDS SUMMARY | 2024-05-19 18:34 | XMS_ITS | Continuity of Care Document ---
Author Name [facility] Organization [facility] Care Team Providers Care Die Cutter Operator Name Role Phone [facility] Unavailable Unavailable Problems Problem Status Onset Date Classification Date Reported Comments Source Generalized weakness 08/10/2018 08/11/2018 [facility] Jaw pain 08/10/2018 08/11/[address] [facility] [facility] Acute UTI 08/10/2018 08/11/2018 45 [facility] Syncope, near 08/10/2018 08/11/2018 [facility] ill feeling 08/10/2018 08/11/2018 45 [facility] EKG abnormalities 08/10/2018 08/11/2018 45 [facility] Medications Medication Details Route Status Patient Instructions Ordering Provider Order Date Source Sulfamethoxazole 800 MG / Trimethoprim 160 MG Oral Tablet [Bactrim] = 1 Tab, ORAL, BID, X 5 Day(s), # 10 Tab, Indication= Urinary Tract Infection (UTI), 0 Refill(s), Acute Active 019 45 [facility] [employer] [place] Allergies, Adverse Reactions, Alerts Substance Category Reaction Severity Reaction type Status Date Reported Comments Source codeine Assertion Drug allergy Active 45 [facility] penicillin Assertion Drug allergy Active 45 [facility] estrogens Assertion Drug allergy Active 45 [facility] Macrodantin Assertion Drug allergy Active 45 [facility] Ceclor Assertion Drug allergy Active 45 [facility] spironolacton e and analogues Assertion Drug allergy Active 45 [facility] Results Order Name Results Value Reference Range Date Interpretation Comments Source DDimerQnt D-Dimer, Qnt 0.55 mg/L - <=0.50 08/10 H Based on tool programmer 's specificatio ns, PE/DVT risk related cutoff at0.50 mg/L the assay had a sensitivity of 97%, specificity of 42%, andNPV of 98% for ruling out PE/DVT. [facility] AutoDiff* Auto Neutrophil Percent 53.2 % 40.0 - 80.0 08/10 NA [facility] [place] AutoDiff* Auto Neutrophil Absolute 3.2 K/uL 08/10 NA [facility] [place] AutoDiff* Auto Lymphocyte Percent 30.9 % 18.0 - 45.0 08/10 NA [facility] [place] AutoDiff* Auto Lymphocyte Absolute 1.9 K/uL 08/10 NA [facility] [place] AutoDiff* Auto Monocyte Percent 11.5 % 3.0 - 12.0 08/10 NA [facility] [place] AutoDiff* Auto Monocyte Absolute 0.7 K/uL 08/10 NA [facility] [place] AutoDiff* Auto Eosinophil Percent 3.3 % - <=7.0 08/10 NA [facility] [place] AutoDiff* Auto Eosinophil Absolute 0.2 K/uL 08/10 NA [facility] [place] AutoDiff* Auto Basophil Percent 1.1 % - <=2.0 08/10 NA [facility] [place] AutoDiff* Auto Basophil Absolute 0.1 K/uL 08/10 NA [facility] [place] CBC WBC 6.0 K/uL 3.5 - 10.4 08/10 NA [facility] [place] CBC RBC 4.57 M/uL 3.60 - 5.40 08/10 NA [facility] [place] CBC HGB 13.2 gm/dL 12.0 - 16.0 08/10 NA [facility] [place] CBC HCT 41.3 % 37.0 - 47.0 08/10 NA [facility] [place] CBC MCV 90.4 fL 82.0 - 101.0 08/10 NA [facility] [place] CBC MCH 28.9 pg 26.0 - 34.0 08/10 NA [facility] [place] CBC MCHC 31.9 gm/dL 32.0 - 36.0 08/10 L [facility] [place] CBC RDW 14.2 % 11.0 - 15.0 08/10 NA [facility] [place] CBC PLT 219 K/uL 140 - 440 08/10 NA [facility] [place] CBC MPV 8.5 fL 7.9 - 10.8 08/10 NA [facility] [place] CMP Sodium Level 140 mmol/L 136 - 145 08/10 NA [facility] [place] CMP Potassium Level 3.4 mmol/L 3.5 - 5.1 08/10 L [facility] [place] CMP Chloride Level 107 mmol/L 98 - 107 08/10 NA [facility] [place] CMP CO2/Carbon Dioxide 24 mmol/L 21 - 32 08/10 NA [facility] [place] CMP Anion Gap 9 mmol/L 4 - 16 08/10 [facility] CMP Glucose, Random 104 mg/dL 70 - 95 08/10 H Reference ranges are based on a fasting specimen. [facility] CMP BUN 16 mg/dL 7 - 20 08/10 [facility] CMP Creatinine 0.7 mg/dL 0.6 - 1.1 08/10 NA [facility] [place] CMP BUN/Creat Ratio 22.9 08/10 [facility] CMP Osmolality, Calculated 291 08/10 [facility] CMP Calcium Level 9.0 mg/dL 8.6 - 10.0 08/10 [facility] CMP Total Protein 7.3 gm/dL 6.4 - 8.2 08/10 [facility] CMP Albumin Level 4.1 gm/dL 3.5 - 5.0 08/10 NA [facility] [place] CMP Globulin Level 3.2 gm/dL 2.0 - 4.0 08/10 [facility] [place] CMP A/G Ratio 1.3 1.1 - 2.2 08/10 [facility] [place] CMP ALP 50 units/L 38 - 126 08/10 NA [facility] [place] CMP ALT 14 units/L 10 - 40 08/10 [facility] [place] CMP AST 19 units/L 15 - 41 08/10 [facility] CMP Bilirubin, Total 0.5 mg/dL - <=1.0 08/10 NA [facility] [place] CMP GFR - Non >60 mL/min/1.7 3m2 08/10 NA <60 = Renal Insufficienc y, <15 = Renal Failure. This equation is not applicable to person's under 18 years of age.eGFR calculation based on the IDMS traceable four-paramet er MDRD equation. [facility] CMP GFR - >60 mL/min/1.7 3m2 08/10 NA [facility] Trop Troponin I <0.02 ng/mL - <=0.05 [...] testing may be helpful for interpretati on. [facility] UADwMCSIf UA - Source/Collec t Type Urine Clean Cat 08/10 NA [facility] UADwMCSIf UA - Appearance CLEAR Clear 08/10 NA [facility] UADwMCSIf UA - Color YELLOW 08/10 NA [facility] UADwMCSIf UA - pH 6.0 5.0 - 8.0 08/10 NA [facility] UADwMCSIf UA - Specific [place] 1.010 1.010 - 1.025 08/10 NA [facility] UADwMCSIf UA - Protein NEGATIVE Negative 08/10 NA [facility] UADwMCSIf UA - Glucose NEGATIVE Negative 08/10 [facility] UADwMCSIf UA - Ketones NEGATIVE Negative 08/10 [facility] UADwMCSIf UA - Bilirubin NEGATIVE Negative 08/10 NA [facility] UADwMCSIf UA - Blood NEGATIVE Negative 08/10 NA [facility] UADwMCSIf UA - Urobilinogen 0.2 0.1 - 1.0 08/10 NA [facility] UADwMCSIf UA - Nitrites NEGATIVE Negative 08/10 [facility] UADwMCSIf UA - Leukocyte Esterase SMALL Negative 08/10 * [facility] UADwMCSIf UA Micro Y/N Yes 08/10 NA [facility] UADwMCSIf Urine Culture Y/N Yes 08/10 NA [facility] UAMicro* UA - WBC 6-10 /HPF 0 - 5 08/10 * [facility] UAMicro* UA - RBC 0-2 /HPF 0 - 2 08/10 NA [facility] UAMicro* UA - Bacteria Moderate /HPF Negative 08/10 * [facility] UAMicro* UA - Epithelials, Squamous Few 08/10 NA [facility] C Urine C Urine Final:DANIEL ECTION SITE [...] laboratory , or contact the Microbi[employer] for consultati on. Performed at: [facility] Central Lab, CLIA# [id number] [place] [address] 08/10 [facility] Diagnostic Reports Report Value Date Source Chest 1 Vw Portable INDICATION: Weakness COMPARISON: None. TECHNIQUE: AP upright chest x-ray was obtained. FINDINGS: There is no focal consolidation, pleural effusion or pneumothorax. The cardiomediastinal silhouette is within normal limits. Regional osseous structures are unremarkable. IMPRESSION: No acute cardiopulmonary findings. Workstation ID: [id number] Signed by: Ochoa Florian on 08/11/2018 11:30 08/10/2018 [facility] Consultation Notes Results Value Date Source ED Physician Notes Patient: CHLOE ROSARIO Age: 68 years Sex: Female : 1950 Author: MD [place] Erin R Associated Diagnosis: Acute UTI; Generalized weakness Basic Information MSEI MD/TOOL PROGRAMMER/PA Time Patient Seen face to face: Date [...] pain at 04:00 am. Patient went [facility] where ECG abnormalities were appreciated. [...] UA - Appearance Clear UA - Specific [place]wood 1.010 UA - pH 6.0 UA - [...] August 10, 2018, 5:00 PM. . 08/10/2018 [facility] Vital Signs Vital Sign Value Date Comments Source Pulse rate 95 bpm 08/11/2018 45 [facility] Respiratory rate 18 br/min 08/11/2018 45 [facility] Temperature (F) 97.5 [degF] 08/11/2018 [facility] [place] Pulse Oximetry 97 % 08/11/[address] [facility] [place] Systolic BP 132 mm[Hg] 08/11/2018 45 [facility] [place] Diastolic BP 77 mm[Hg] 08/11/2018 45 [facility] [place] Pulse Oximetry 96 % 08/11/[address] [facility] [place] Systolic BP 141 mm[Hg] 08/11/2018 45 [facility] [place] Diastolic BP 82 mm[Hg] 08/11/2018 45 [facility] [place] Neurological norm WDL (08/10/18 1:51 PM) 08/10/2018 45 [facility] [place] Temperature (F) 98.1 [degF] 08/10/2018 [facility] [place] Pulse rate 114 bpm 08/10/2018 45 [facility] [place] Pulse Oximetry 96 % 08/10/[address] [facility] [place] Respiratory rate 20 br/min 08/10/2018 [facility] [place] HeightLength (cm) 170 cm 08/10/2018 [facility] [place] Weight (kg) 90 kg 08/10/2018 45 [facility] [place] Systolic BP 182 mm[Hg] 08/10/2018 45 [facility] [place] Diastolic BP 96 mm[Hg] 08/10/2018 45 [facility] [place] Dose calculation weight (kg) 90 kg 08/10/2018 45 [facility] [place] Encounters Location Location Details Encounter Type Encounter Number Reason For Visit Attending Provider ADM Date DC Date Status Source 45 45 [facility] [place] [id number] FLUTTER T[place]YCARD [place] 08/10 [facility] [place] 45 45 [facility] Emergency [id number] ABNORMAL ELECTROCA RDIOGRAM Conce[place]ion [place] 08/10 [facility] [place] Procedures Procedure Code Date Perfomer Comments Source ROUTINE VENIPUNCTURE 59955 08/11/2018 45 [facility] [place] ROUTINE VENIPUNCTURE [id number] 08/10/2018 45 [facility] [place] Plan of Care Plan of Care Date Source Diagnostic Tests PendingCult ure Urine 08/10/18 08/11/2018 45 [facility] [place]
--- OUTSIDE RECORDS SUMMARY | 2024-05-19 18:34 | XMS_ITS | Clinical Summary ---
Author Organization [facility] Address [address] [place] [address] Care Team Providers Care Sound Printer Name Role Phone Jinny Ani Hill NP [...] and she is on hydroxychloroquine from her histopathology technician. Her LV function as checked by nuclear [...] 4:50 PM EST Ancillary Procedure [facility] [address] [address] 05/08/2024 4:45 PM EST Consult [facility] [address] [address] Wili Schwab PA Pain of right hip (Primary Dx); Spondylosis of lumbar region without myelopathy or radiculopathy 03/20/2024 11:30 AM EST Office Visit [facility] Neurology [address] [address] Lee Medley APRN Essential tremor (Primary Dx) 03/20/2024 Travel 02/28/2024 10:45 AM EST [facility] Visit [facility] [address] [place] [address] Jacqui Moran APRN Osteoarthritis of [...] 2:45 PM EDT Consult [facility] [place] [address] [place] [address] Justin Yoo MD [address] [facility] [address] [place], [place] 10/07/2024 3:50 PM EDT Office Visit [facility] Neurology [place] 35 [facility] [address] [place] [phone] Lee Medley, BRIDGETT 35 [facility] [address] [place] [address] Health Maintenance Due Date Last Done Comments [...] 4:47 PM EST Pain of right hip [place] ARTHROCENTESIS ASPIR&/INJ SMALL JT/BURSA W/O US Routine 02/28/2024 10:45 AM EST Osteoarthritis of ankle and foot, right from Last 3 Months Results * XR Lumbar spine 1 view (05/08/2024 4:47 PM EST) Narrative [facility] - 05/08/2024 4:47 PM EST This exam was performed in office at [facility] and images reviewed by orthopedic provider. ??Any findings are documented within ambulatory encounter note on date of service. Wili LIUG DIAGNOSTIC I MAGING ORDERABLES Performing Organization Address [facility] Co de Phone Number OA * XR Hip w pelvis 2 or 3 views-Right (05/08/2024 4:47 PM EST) Narrative [facility] - 05/08/2024 4:47 PM EST This exam was performed in office at [facility] and images reviewed by orthopedic provider. ??Any findings are documented within ambulatory encounter note on date of service. Wili LUIG DIAGNOSTIC I MAGING ORDERABLES Performing Organization Address [facility] Co de Phone Number OA * [place] ARTHROCENTESIS ASPIR&/INJ SMALL JT/BURSA W/O US (02/28/2024 [...] 10:16 AM 11/15/2021 9:23 AM Care Teams Sound Printer Relationship Specialty Start Date End Date Ani Stearns NP [address] [place] [address] [place] [address] PCP - General 08/14/20
--- OUTSIDE RECORDS SUMMARY | 2024-05-19 18:34 | XMS_ITS | Clinical Summary ---
Author Organization [facility] Address [address] [place] [address] Care Team Providers Care Size Cutter Name Role Phone Ct Bui Primary Care Provider [phone] Social History Tobacco Use Types Packs/Day Years [...] age to complete this topic Care Teams Size Cutter Relationship Specialty Start Date End Date Ct Bui DO [address] [place] [address] Dr Burch 1 MICHAEL Hampton [phone] PCP - General Internal Medicine 06/21/16
--- OUTSIDE RECORDS SUMMARY | 2024-05-19 18:34 | XMS_ITS | Encounter Summary ---
Author Organization [facility] Address [address] [place] [address] Care Team Providers Care Metal Finisher Name Role Phone Ani Stearns NP Primary Care Provi elena Encounter Details Date Type Department Care Team (Late st Contact Info) Description 05/21/2023 Scanned Document [facility] [address] Mariusz Howell MD [address] [place] [address] Social History Tobacco Use Types Packs/Day Years [...] 2:45 PM EDT Consult [facility] [place] [address] [place] [address] Justin Yoo MD [address] [facility] [address] [place] [address] 10/07/2024 3:50 PM EDT Office Visit [facility] Neurology [place] 35 [facility] [address] [place] [address] Lee Medley APRN 35 [facility] [address] [place] [address] documented as of this encounter Visit Diagnoses Not on filedocumented in this encounter Care Teams Metal Finisher Relationship Specialty Start Date End Date Ani Stearns NP [address] [place] [address] [place] [address] PCP - General 08/14/20 documented as of this encounter
--- OUTSIDE RECORDS SUMMARY | 2024-05-19 18:34 | XMS_ITS | Continuity of Care Document ---
Author Organization [facility] Address [address] [place] [address]- Care Team Providers Care Sack Sewer Machine Name Role Phone Jinny JOHNSTON, Ani Looney Primary Care Physician Encounter [facility] Date(s): 04/17/24 - 05/17/24 [facility] [employer] [facility] [address] [place] [address]- Attending Physician: Chelle Rapp Admitting Physician: AdmtrChelle Referring Physician: Admtr, ArPerry Encounter Type: Triage Allergies, Adverse Reactions, Alerts [...] 3 Refills, Maintenance, 04/17/24 12:10:00 PM EST, [facility]/pharmacy #[id number], 180, cm, 03/13/23 7:52:00 EST, Height, 94.7, kg, 02/05/23 15:36:00 EST, Dry Weight Start Date: 04/17/24 Status: Ordered Quantity: 180.0 Unit: tablet Repeat number: 4 Myrbetriq 50 mg oral tablet, extended release 1 tablet = 50 mg, By Mouth, Daily, # 90 tablet, 3 Refills, Maintenance, 04/17/24 12:11:00 PM EST, [id number], Partial fill upon patient request if [...] 5 Refills, Maintenance, 10/10/22 4:48:00 PM EDT, [facility]/pharmacy #[id number], Partial fill upon patient request ifthe [...] on: 02/16/17 Sex Sex Representation Female (finding) Laboratory * Event Display: Non BH Lab Results Authored Date: * Event Display: Non BH Lab Results Authored Date: * Event Display: Non BH Lab Results Authored Date: Patient Care team information Care Team Personnel Name: Ani Stearns NP Position: [facility] Outreach Member Role: PCP Address: [address] [place] [address]- [place] Telecom: Care Team Related Persons Name: JENNIFER ROSARIO Insurance Providers Guarantor name: CHLOE ROSARIO [facility] Information #: 1 Payer: MEDICARE PART B OUTPT Member Number: NA Policy Number: NA Group Number: NA Health Plan Information #: 2 Payer: MEDEX Member Number: NA Policy Number: NA Group Number: NA
--- OUTSIDE RECORDS SUMMARY | 2024-05-19 18:34 | XMS_ITS | Encounter Summary ---
Author Organization [facility] Address [address] [place] [address] Care Team Providers Care Song Plugger Name Role Phone Ani Stearns NP Primary Care Provi elena Encounter Details Date Type Department Care Team (Late st Contact Info) Description 05/08/2023 Scanned Document [facility] [address] Mariusz Howell MD [address] [place] [address] Social History Tobacco Use Types Packs/Day Years [...] 2:45 PM EDT Consult [facility] [place] [address] [place] [address] Justin Yoo MD [address] [facility] [address] [place] [address] 10/07/2024 3:50 PM EDT Office Visit [facility] Neurology [place] 35 [facility] [address] [place] [address] Lee Medley APRN 35 [facility] [address] [place] [address] documented as of this encounter Visit Diagnoses Not on filedocumented in this encounter Care Teams Song Plugger Relationship Specialty Start Date End Date Ani Stearns NP [address] [place] [address] [place] [address] PCP - General 08/14/20 documented as of this encounter
--- OUTSIDE RECORDS SUMMARY | 2024-05-19 18:34 | XMS_ITS | Encounter Summary ---
Author Organization [facility] Address [address] [place] [address] Care Team Providers Care Emerging Technologies Director Name Role Phone Ani Stearns NP Primary Care Provi elena Encounter Details Date Type Department Care Team (Late st Contact Info) Description 05/07/2023 Scanned Document [facility] [place] [address] Mariusz Howell MD [address] [place] [address] Social History Tobacco Use Types Packs/Day Years [...] 2:45 PM EDT Consult [facility] [place] [address] [place] [address] Justin Yoo MD [address] [facility] [address] [place] [address] 10/07/2024 3:50 PM EDT Office Visit [facility] Neurology [place] 35 [facility] [address] [place] [address] Lee Medley APRN 35 [facility] [address] [place] [address] documented as of this encounter Visit Diagnoses Not on filedocumented in this encounter Care Teams Emerging Technologies Director Relationship Specialty Start Date End Date Ani Stearns NP [address] [place] [address] [place] [address] PCP - General 08/14/20 documented as of this encounter
--- OUTSIDE RECORDS SUMMARY | 2024-05-19 18:34 | XMS_ITS | Encounter Summary ---
Author Organization [facility] Address [address] [place] [address] Care Team Providers Care Color Corrector Name Role Phone Ani Stearns Liz VICKIE Primary Care Provi elena Encounter Details Date Type Department Care Team (Late st Contact Info) Description 06/02/2020 Erroneous Encounter [facility] [address] [place] [address] Provider, MD Dexter Social History Tobacco Use [...] 2:45 PM EDT Consult [facility] [place] [address] [place] [address] Justin Yoo MD [address] [place] [address] [address] [place] [address] 10/07/2024 3:50 PM EDT Office Visit [facility] Neurology [address] [place] [address] Lee Medley, BRIDGETT 35 [facility] [address] [place] [address] documented as of this encounter Visit Diagnoses Not on filedocumented in this encounter Care Teams Color Corrector Relationship Specialty Start Date End Date Ani Stearns NP [address] [place] [address] [place] [address] PCP - General 08/14/20 documented as of this encounter
--- OUTSIDE RECORDS SUMMARY | 2024-05-19 18:34 | XMS_ITS | Encounter Summary ---
Author Organization [facility] Address [address] [place] [address] Care Team Providers Care Professional Volleyball Player Name Role Phone Ani Stearns NP Primary Care Provi elena Encounter Details Date Type Department Care Team ([facility] st Contact Info) Description 11/22/2023 Scanned Document [facility] [place] [address] [place] [address] Mariusz Howell MD [address] [place] [address] Social History Tobacco Use Types Packs/Day Years [...] 2:45 PM EDT Consult [facility] [place] [address] [place] [address] Justin Yoo MD [address] [facility] [address] [place] [address] 10/07/2024 3:50 PM EDT Office Visit [facility] Neurology [place] 35 [facility] [address] [place] [address] Lee Medley, BRIDGETT 35 [facility] [address] [place] [address] documented as of this encounter Visit Diagnoses Not on filedocumented in this encounter Care Teams Professional Volleyball Player Relationship Specialty Start Date End Date Ani Stearns NP [address] [place] [address] [place] [address] PCP - General 08/14/20 documented as of this encounter
--- OUTSIDE RECORDS SUMMARY | 2024-05-19 18:34 | XMS_ITS | Encounter Summary ---
Author Organization [facility] Address [address] [place] [address] Care Team Providers Care Drill Operator Pneumatic Name Role Phone Ani Stearns NP Primary Care Provi elena Encounter Details Date Type Department Care Team (Late st Contact Info) Description 05/22/2023 Scanned Document [facility] [place] [address] Mariusz Howell MD [address] [place] [address] Social History Tobacco Use Types Packs/Day Years [...] 2:45 PM EDT Consult [facility] [place] [address] [place] [address] Justin Yoo MD [address] [facility] [address] [place] [address] 10/07/2024 3:50 PM EDT Office Visit [facility] Neurology [place] [address] [facility] [address] [place] [address] Lee Medley APRN 35 [facility] [address] [place] [address] documented as of this encounter Visit Diagnoses Not on filedocumented in this encounter Care Teams Drill Operator Pneumatic Relationship Specialty Start Date End Date Ani Stearns NP [address] [place] [address] [place] [address] PCP - General 08/14/20 documented as of this encounter
--- OUTSIDE RECORDS SUMMARY | 2024-05-19 18:34 | XMS_ITS | Clinical Summary ---
Author Organization [facility] Address [address] [place] [address] Care Team Providers Care Recruitment Director Name Role Phone Ct Bui DO Primary Care Provider [phone] Allergies Active Allergy Reactions Criticality Noted Date [...] age to complete this topic Care Teams Recruitment Director Relationship Specialty Start Date End Date Ct Bui DO [address] [place] [address] [address] [place] [address] PCP - General Internal Medicine 06/21/16
--- OUTSIDE RECORDS SUMMARY | 2024-05-19 18:34 | XMS_ITS | Encounter Summary ---
Author Organization [facility] Address [address] [place] [address] Care Team Providers Care Oil Tank Car Cleaner Name Role Phone Ani Stearns NP Primary Care Provi elena Reason for Visit * Reason Comments Pain Encounter Details Date Type Department Care Team (Late st Contact Info) Description 05/08/2024 4:45 PM EST Consult [facility] [address] [phone] Wili Schwab PA 31 [facility] [address] [place] [address] Pain of right hip (Primary Dx); Spondylosis [...] from the original note were not included. [facility] 499 [facility] [address] [phone] Encounter Date: 05/08/24 Assessment & Plan 1. [...] AND ABLATION FOOT SURGERY Right 05/2023 reconstrontion SC APPENDECTOMY Appendectomy: 2011-10-05 10:33:19 SC DESTRUCTION VAGINAL LESIONS SIMPLE Ablation Of Vaginal Lesion(S): 2011-10-05 10:33:19 SC TONSILLECTOMY PRIMARY/SECONDARY <AGE 12 Tonsillectomy: 2011-10-05 10:33:19 [place] UNLISTED PROCEDURE URINARY SYSTEM Bladder Surgery: 2011-10-05 [...] 2:45 PM EDT Consult [facility] [address] [address] Justin Yoo MD [address] [place] [address] [address] [place] [phone] 10/07/2024 3:50 PM EDT Office Visit [facility] Neurology [address] [place] [address] eLe Medley, BRIDGETT 35 [facility] [address] [place] [address] documented as of this encounter Procedures Procedure [...] DIAGNOSTIC I MAGING ORDERABLES Performing Organization Address [facility] de Phone Number OAH * XR Hip w pelvis 2 or 3 views-Right (05/08/2024 4:47 PM EST) Narrative [facility] - 05/08/2024 4:47 PM EST [facility] and images reviewed by [facility]opedic provider. ??Any findings are documented within ambulatory encounter note on date of service. Wili LIUG DIAGNOSTIC I MAGING ORDERABLES Performing Organization Address [facility] Co de Phone Number [facility] documented in this encounter Visit Diagnoses Diagnosis Pain of right hip- Primary Spondylosis of lumbar region without myelopathy or radiculopathy documented in this encounter Care Teams Oil Tank Car Cleaner Relationship Specialty Start Date End Date Ani Stearns NP [address] [place] [address] Dr Hampton, MICHAEL [address] PCP - General 08/14/20 documented as of this encounter
--- OUTSIDE RECORDS SUMMARY | 2024-05-19 18:34 | XMS_ITS | Encounter Summary ---
Author Organization [facility] Address [address] [place] [address] Care Team Providers Care Agricultural Engineering Technicians Name Role Phone Ani Stearns NP Primary Care Provi elena Encounter Details Date Type Department Care Team (Late st Contact Info) Description 05/21/2023 Scanned Document [facility] [address] Mariusz Howell MD [address] [place] [address] Social History Tobacco Use Types Packs/Day Years [...] 2:45 PM EDT Consult [facility] [place] [address] [place] [address] Justin Yoo MD 499 [facility] [address] [place] [address] 10/07/2024 3:50 PM EDT Office Visit [facility] Neurology [place] [address] [facility] [address] [place] [address] Lee Medley APRN 35 [facility] [address] [place] [address] documented as of this encounter Visit Diagnoses Not on filedocumented in this encounter Care Teams Agricultural Engineering Technicians Relationship Specialty Start Date End Date Ani Stearns NP [address] [place] [address] [place] [address] PCP - General 08/14/20 documented as of this encounter
--- OUTSIDE RECORDS SUMMARY | 2024-05-19 18:34 | XMS_ITS | Encounter Summary ---
Author Organization [facility] Address [address] [place] [address] Care Team Providers Care Continuous Improvement Facilitator Name Role Phone Ani Stearns NP Primary Care Provi elena Encounter Details Date Type Department Care Team (Late st Contact Info) Description 05/08/2024 4:50 PM EST Ancillary Procedure Orthopedic [address] [phone] Social History Tobacco Use Types Packs/Day Years [...] Description 05/29/2024 2:45 PM EDT Consult Orth[facility] [address] [address] Justin Yoo MD [address] [place] [address] 10/07/2024 3:50 PM EDT Office [facility] Neurology [place] 35 [facility] [address] [place] [address] Lee Medley, LOCAL [place] TRUCK DRIVER 35 [facility] [address] [place] [address] documented as of this encounter Procedures Procedure Name Priority Date/Time Associated Diagnosis Comments XR LUMBAR SPINE 1 VIEW Routine 05/08/2024 4:47 PM EST Pain of right hip XR HIP W PELVIS 2 OR 3 VIEWS-RIGHT Routine 05/08/2024 4:47 PM EST Pain of right hip documented in this encounter Results * XR Lumbar spine 1 view (05/08/2024 4:47 PM EST) Narrative [facility] - 05/08/2024 4:47 PM EST This exam was performed in office at [facility] and images reviewed by orthopedic provider. ??Any findings are documented within ambulatory encounter note on date of service. Wili VILLALTA IMG DIAGNOSTIC I MAGING ORDERABLES Performing Organization Address [facility] de Phone Number OA * XR Hip w pelvis 2 or 3 views-Right (05/08/2024 4:47 PM EST) Narrative [facility] - 05/08/2024 4:47 PM EST [facility] and images reviewed by orthopedic provider. ??Any findings are documented within ambulatory encounter note on date of service. Wili VILLALTA IMG DIAGNOSTIC I MAGING ORDERABLES Performing Organization Address [facility] Co de Phone Number OA documented in this encounter Visit Diagnoses Not on filedocumented in this encounter Care Teams Continuous Improvement Facilitator Relationship Specialty Start Date End Date Ani Stearns NP [address] [place] [address] Dr Hampton, MICHAEL [address] PCP - General 08/14/20 documented as of this encounter
== END 2024-05-19 17:57 | disposition home or self-care (01) ==
LOC: HO.MRI 17:56
PROVIDERS: Visit Provider Internal Medicine Rheumatology
DX: S32.040A Wedge compression fracture of fourth lumbar vertebra, initial encounter for closed fracture (principal)
CPT/HCPCS: 72148

== ENCOUNTER → 2024-05-19 18:13 | Outpatient (BNV) | payer MEDICARE, SELFPAY | PROVIDERS: Visit Provider Student in an Organized Health Care Education/Training Program | DX: M47.816 Spondylosis without myelopathy or radiculopathy, lumbar region (principal); M41.86 Other forms of scoliosis, lumbar region | CPT/HCPCS: 72148 ==

== ENCOUNTER 2024-05-21 13:01 | Outpatient (REF) | payer MEDICARE, SELFPAY ==
--- OUTSIDE RECORDS SUMMARY | 2024-05-21 15:11 | XMS_ITS | Encounter Summary ---
Author Organization [facility] Address [address] [place] [address] Care Team Providers Care Principal System Software Engineer Name Role Phone Ani Stearns NP Primary Care Provi elena Encounter Details Date Type Department Care Team (Late st Contact Info) Description 05/08/2024 4:50 PM EST Ancillary Procedure Orthopedic [address] [phone] Social History Tobacco Use Types Packs/Day Years [...] Description 05/29/2024 2:45 PM EDT Consult Orthopedic [address] [address] Justin Yoo MD [address] [place] [address] 10/07/2024 3:50 PM EDT Office Visit [facility] [place] 35 [facility] [address] [place] [address] Lee Medley, KILN FURNITURE SAW TENDER 35 [facility] [address] [place] [address] documented as of this encounter Procedures Procedure Name Priority Date/Time Associated Diagnosis Comments XR LUMBAR SPINE 1 VIEW Routine 05/08/2024 4:47 PM EST Pain of right hip XR HIP W PELVIS 2 OR 3 VIEWS-RIGHT Routine 05/08/2024 4:47 PM EST Pain of right hip documented in this encounter Results * XR Lumbar spine 1 view (05/08/2024 4:47 PM EST) Narrative [facility] - 05/08/2024 4:47 PM EST This exam was performed in office at [facility] and images reviewed by orthopedic provider. ??Any findings are documented within ambulatory encounter note on date of service. Wili VILLALTA IMG DIAGNOSTIC I MAGING ORDERABLES Performing Organization Address [facility] de Phone Number OA * XR Hip w pelvis 2 or 3 views-Right (05/08/2024 4:47 PM EST) Narrative [facility] - 05/08/2024 4:47 PM EST [facility] and images reviewed by [facility] provider. ??Any findings are documented within ambulatory encounter note on date of service. Wili VILLALTA IMG DIAGNOSTIC I MAGING ORDERABLES Performing Organization Address [facility] Co de Phone Number OA documented in this encounter Visit Diagnoses Not on filedocumented in this encounter Care Teams Principal System Software Engineer Relationship Specialty Start Date End Date Ani Stearns NP [address] [place] [address] Dr Hampton, MICHAEL [address] PCP - General 08/14/20 documented as of this encounter
--- OUTSIDE RECORDS SUMMARY | 2024-05-21 15:11 | XMS_ITS | Encounter Summary ---
Author Organization [facility] Address [address] [place] [address] Care Team Providers Care Bottle Label Inspector Name Role Phone Jinny Ani Liz VICKIE Primary Care Provi elena Encounter Details Date Type Department Care Team (Latest Contact Info) Description 05/28/2020 Lab Requisition [facility] [address] [place] [address] [address] [place] [address] Mariusz Howell MD [address] [place] [address] Encounter for laboratory testing for COVID-19 virus [...] 2:45 PM EDT Consult [facility] [address] [place] [phone] Justin Yoo MD 499 [facility] [address] [place] [address] 10/07/2024 3:50 PM EDT Office Visit [facility] Neurology [place] 35 [facility] [address] [place] [phone] Lee Medley, HEALTH TECH 35 [facility] [address] [place], [place] [address] documented as of this encounter Procedures Procedure Name Priority Date/Time Associated Diagnosis Comments COVID-19 (SARS-COV-2) ANNALISE Routine 05/28/2020 10:52 AM EDT Encounter for laboratory testing for COVID-19 virus [ICD-10-CM] documented in this encounter Results * COVID-19 (SARS-CoV-2), ANNALISE (In-House) (05/28/2020 10:52 AM EDT) SARS CoV 2 Not Detected Not Detected 05/28/2020 2:08 PM EDT [facility] Comment: Negative results do [...] was completed and performance characteristics established by [facility] as per the FDA and CLIA requirement for this EUA. The Aptima SARS-CoV-2 assay Letter of Authorization, along with the authorized Fact Sheet for Healthcare Providers, the authorized Fact Sheet for Patients, and authorized labeling are available on the FDA website: https://www.fda.gov/medical-devices/eejypmwuv-jpcixtqmve-lvyllsy-devices/emergen - j-ladermyfbbhbkg-ailxwwv-devices. Performed at [facility], [place], [place] ??CT License 0385 ??CLIA [id number] Source Nasopharyngeal 05/28/2020 2:08 PM EDT [facility] Comment:Performed at [facility], [facility], [place] license No. [id number] CLIA No. [id number] Microbiology Nasopharyngeal swab / Unknown 05/28/2020 10:52 AM EDT 05/28/2020 10:53 AM EDT Mariusz Howell MD MICROBIOLOGY - GENER AL ORDERABLES [facility] [address] [place] [address] documented in this encounter Visit Diagnoses Diagnosis Encounter for laboratory testing for COVID-19 virus documented in this encounter Care Teams Bottle Label Inspector Relationship Specialty Start Date End Date Ani Stearns NP [address] [place] [address] [place] [address] PCP - General 08/14/20 documented as of this encounter
--- OUTSIDE RECORDS SUMMARY | 2024-05-21 15:11 | XMS_ITS | Encounter Summary ---
Author Organization [facility] Address [address] [place] [address] Care Team Providers Care Aircraft Mechanic Electrical And Radio Name Role Phone Ani Stearns NP Primary Care Provi elena Encounter Details Date Type Department Care Team (Late st Contact Info) Description 05/07/2023 Scanned Document [facility] [place] [address] Mariusz Howell MD [address] [place] [address] Social History Tobacco Use Types Packs/Day Years [...] 2:45 PM EDT Consult [facility] [address] [place] [address] Justin Yoo MD [address] [facility] [address] [place] [address] 10/07/2024 3:50 PM EDT Office Visit [facility] Neu[facility] [place] 35 [facility] [address] [place] [address] Lee Medley APRN 35 [facility] [address] [place] [address] documented as of this encounter Visit Diagnoses Not on filedocumented in this encounter Care Teams Aircraft Mechanic Electrical And Radio Relationship Specialty Start Date End Date Ani Stearns NP [address] [place] [address] [place] [address] PCP - General 08/14/20 documented as of this encounter
--- OUTSIDE RECORDS SUMMARY | 2024-05-21 15:11 | XMS_ITS | Encounter Summary ---
Author Organization [facility] Address [address] [place] [address] Care Team Providers Care Maint Mechanic Name Role Phone Ani Stearns NP Primary Care Provi elena Encounter Details Date Type Department Care Team ([facility] st Contact Info) Description 11/22/2023 Scanned Document [facility] [place] [address] [place] [phone] Mariusz Howell MD [address] [place] [address] Social History Tobacco Use Types Packs/Day Years [...] 2:45 PM EDT Consult [facility] [address] [place] [address] Justin Yoo MD [address] [facility] [address] [place] [address] 10/07/2024 3:50 PM EDT Office Visit [facility] Neurology [place] 35 [facility] [address] [place] [address] Lee Medley, BRIDGETT 35 [facility] [address] [place] [address] documented as of this encounter Visit Diagnoses Not on filedocumented in this encounter Care Teams Maint Mechanic Relationship Specialty Start Date End Date Ani Stearns NP [address] [place] [address] [place] [address] PCP - General 08/14/20 documented as of this encounter
--- OUTSIDE RECORDS SUMMARY | 2024-05-21 15:11 | XMS_ITS | Clinical Summary ---
Author Organization [facility] Address [address] [place] [address] Care Team Providers Care Speck Dyer Name Role Phone Ct Bui Primary Care Provider Social History Tobacco Use Types Packs/Day Years [...] age to complete this topic Care Teams Speck Dyer Relationship Specialty Start Date End Date Ct Bui DO [address] [place] [address] Dr Burch 1 MICHAEL [place] [phone] PCP - General Internal Medicine 06/21/16
--- OUTSIDE RECORDS SUMMARY | 2024-05-21 15:11 | XMS_ITS | Clinical Summary ---
Author Organization [facility] Address [address] [place] [address] Care Team Providers Care Public Records Officer Name Role Phone Ct Bui DO Primary Care Provider [phone] Allergies Active Allergy Reactions Criticality Noted Date [...] age to complete this topic Care Teams Public Records Officer Relationship Specialty Start Date End Date Ct Bui DO [address] [place] [address] [address] [place] [address] PCP - General Internal Medicine 06/21/16
--- OUTSIDE RECORDS SUMMARY | 2024-05-21 15:11 | XMS_ITS | Continuity of Care Document ---
Author Name [facility] Organization [facility] Care Team Providers Care Merchant Patroller Name Role Phone [facility] Unavailable Unavailable Problems Problem Status Onset Date Classification Date Reported Comments Source Generalized weakness 08/10/2018 08/11/2018 45 [facility] J[facility] pain 08/10/2018 08/11/2018 45 [facility] Acute UTI 08/10/2018 08/11/2018 45 [facility] Syncope, near 08/10/2018 08/11/2018 45 [facility] ill feeling 08/10/2018 08/11/2018 45 [facility] EKG abnormalities 08/10/2018 08/11/2018 45 [facility] Medications Medication Details Route Status Patient Instructions Ordering Provider Order Date Source Sulfamethoxazole 800 MG / Trimethoprim 160 MG Oral Tablet [Bactrim] = 1 Tab, ORAL, BID, X 5 Day(s), # 10 Tab, Indication= Urinary Tract Infection (UTI), 0 Refill(s), Acute Active 019 45 [email or web address] [place] Allergies, Adverse Reactions, Alerts Substance Category Reaction Severity Reaction type Status Date Reported Comments Source codeine Assertion Drug allergy Active 45 [facility] penicillin Assertion Drug allergy Active 45 [facility] estrogens Assertion Drug allergy Active 45 [facility] Macrodantin Assertion Drug allergy Active 45 [facility] Ceclor Assertion Drug allergy Active 45 [facility] spironolacton e and analogues Assertion Drug allergy Active 45 [facility] Results Order Name Results Value Reference Range Date Interpretation Comments Source DDimerQnt D-Dimer, Qnt 0.55 mg/L - <=0.50 08/10 H Based on dividend deposit voucher clerk 's specificatio ns, PE/DVT risk related cutoff at0.50 mg/L the assay had a sensitivity of 97%, specificity of 42%, andNPV of 98% for ruling out PE/DVT. [facility] AutoDiff* Auto Neutrophil Percent 53.2 % 40.0 - 80.0 08/10 NA [facility] AutoDiff* Auto Neutrophil Absolute 3.2 K/uL 08/10 NA [facility] AutoDiff* Auto Lymphocyte Percent 30.9 % 18.0 - 45.0 08/10 NA [facility] AutoDiff* Auto Lymphocyte Absolute 1.9 K/uL 08/10 NA [facility] AutoDiff* Auto Monocyte Percent 11.5 % 3.0 - 12.0 08/10 NA [facility] AutoDiff* Auto Monocyte Absolute 0.7 K/uL 08/10 NA [facility] AutoDiff* Auto Eosinophil Percent 3.3 % - <=7.0 08/10 NA [facility] AutoDiff* Auto Eosinophil Absolute 0.2 K/uL 08/10 NA [facility] AutoDiff* Auto Basophil Percent 1.1 % - <=2.0 08/10 NA [facility] AutoDiff* Auto Basophil Absolute 0.1 K/uL 08/10 NA [facility] CBC WBC 6.0 K/uL 3.5 - 10.4 08/10 NA [facility] CBC RBC 4.57 M/uL 3.60 - 5.40 08/10 NA [facility] CBC HGB 13.2 gm/dL 12.0 - 16.0 08/10 NA [facility] CBC HCT 41.3 % 37.0 - 47.0 08/10 NA [facility] CBC MCV 90.4 fL 82.0 - 101.0 08/10 NA [facility] CBC MCH 28.9 pg 26.0 - 34.0 08/10 NA [facility] CBC MCHC 31.9 gm/dL 32.0 - 36.0 08/10 L [facility] CBC RDW 14.2 % 11.0 - 15.0 08/10 NA [facility] CBC PLT 219 K/uL 140 - 440 08/10 NA [facility] CBC MPV 8.5 fL 7.9 - 10.8 08/10 NA [facility] CMP Sodium Level 140 mmol/L 136 - 145 08/10 NA [facility] [place] CMP Potassium Level 3.4 mmol/L 3.5 - 5.1 08/10 L [facility] [place] CMP Chloride Level 107 mmol/L 98 - 107 08/10 NA [facility] [place] CMP CO2/Carbon Dioxide 24 mmol/L 21 - 32 08/10 NA [facility] [place] CMP Anion Gap 9 mmol/L 4 - 16 08/10 [facility] Glucose, Random 104 mg/dL 70 - 95 08/10 H Reference ranges are based on a fasting specimen. [facility] CMP BUN 16 mg/dL 7 - 20 08/10 [facility] C[facility] Creatinine 0.7 mg/dL 0.6 - 1.1 08/10 NA [facility] [place] CMP BUN/Creat Ratio 22.9 08/10 [facility] CMP Osmolality, Calculated 291 08/10 [facility] CMP Calcium Level 9.0 mg/dL 8.6 - 10.0 08/10 [facility] CMP Total Protein 7.3 gm/dL 6.4 - 8.2 08/10 [facility] CMP Albumin Level 4.1 gm/dL 3.5 - 5.0 08/10 NA [facility] [place] CMP Globulin Level 3.2 gm/dL 2.0 - 4.0 08/10 [facility] [place] CMP A/G Ratio 1.3 1.1 - 2.2 08/10 [facility] [place] CMP ALP 50 units/L 38 - 126 08/10 NA [facility] [place] CMP ALT 14 units/L 10 - 40 08/10 [facility] [place] CMP AST 19 units/L 15 - 41 08/10 [facility] C[facility] Bilirubin, Total 0.5 mg/dL - <=1.0 08/10 NA [facility] [place] CMP GFR - Non >60 mL/min/1.7 3m2 08/10 NA <60 = Renal Insufficienc y, <15 = Renal Failure. This equation is not applicable to person's under 18 years of age.eGFR calculation based on the IDMS traceable four-paramet er MDRD equation. [facility] CMP GFR - >60 mL/min/1.7 3m2 08/10 NA [facility] Trop Troponin I <0.02 ng/mL - <=0.05 [...] testing may be helpful for interpretati on. [facility] UADwMCSIf UA - Source/Collec t Type Urine Clean Cat 08/10 NA [facility] UADwMCSIf UA - Appearance CLEAR Clear 08/10 NA [facility] UADwMCSIf UA - Color YELLOW 08/10 NA [facility] UADwMCSIf UA - pH 6.0 5.0 - 8.0 08/10 NA [facility] UADwMCSIf UA - Specific Robinson 1.010 1.010 - 1.025 08/10 NA [facility] UADwMCSIf UA - Protein NEGATIVE Negative 08/10 NA [facility] UADwMCSIf UA - Glucose NEGATIVE Negative 08/10 [facility] UADwMCSIf UA - Ketones NEGATIVE Negative 08/10 [facility] UADwMCSIf UA - Bilirubin NEGATIVE Negative 08/10 NA [facility] UADwMCSIf UA - Blood NEGATIVE Negative 08/10 NA [facility] UADwMCSIf UA - Urobilinogen 0.2 0.1 - 1.0 08/10 NA [facility] UADwMCSIf UA - Nitrites NEGATIVE Negative 08/10 [facility] UADwMCSIf UA - Leukocyte Esterase SMALL Negative 08/10 * [facility] UADwMCSIf UA Micro Y/N Yes 08/10 NA [facility] UADwMCSIf Urine Culture Y/N Yes 08/10 NA [facility] UAMicro* UA - WBC 6-10 /HPF 0 - 5 08/10 * [facility] UAMicro* UA - RBC 0-2 /HPF 0 - 2 08/10 NA [facility] UAMicro* UA - Bacteria Moderate /HPF Negative 08/10 * [facility] UAMicro* UA - Epithelials, Squamous Few 08/10 NA [facility] C Urine C Urine Final:DANIEL ECTION SITE [...] laboratory , or contact the Microbiolo gy Needle Setter for consultati on. Performed at: [facility], CLIA# [id number] [place] [address] 08/10 [facility] Diagnostic Reports Report Value Date Source Chest 1 Vw Portable INDICATION: Weakness COMPARISON: None. TECHNIQUE: AP upright chest x-ray was obtained. FINDINGS: There is no focal consolidation, pleural effusion or pneumothorax. The cardiomediastinal silhouette is within normal limits. Regional osseous structures are unremarkable. IMPRESSION: No acute cardiopulmonary findings. Workstation ID: [id number] Signed by: Ochoa Florian on 08/11/2018 11:30 08/10/2018 [facility] Consultation Notes Results Value Date Source ED Physician Notes Patient: CHLOE ROSARIO Age: 68 years Sex: Female : 1950 Author: MD Villalta Erin R Associated Diagnosis: Acute UTI; Generalized weakness Basic Information MSEI MD/ENTRY LEVEL/PA Time Patient Seen face to face: Date [...] pain at 04:00 am. Patient went the [facility] where ECG abnormalities were [...] UA - Appearance Clear UA - Specific Robinson 1.010 UA - pH 6.0 UA - [...] August 10, 2018, 5:00 PM. . 08/10/2018 [facility] Vital Signs Vital Sign Value Date Comments Source Pulse rate 95 bpm 08/11/2018 45 [facility] Respiratory rate 18 br/min 08/11/2018 45 [facility] Temperature (F) 97.5 [degF] 08/11/2018 45 [facility] Pulse Oximetry 97 % 08/11/[address] [facility] Systolic BP 132 mm[Hg] 08/11/2018 45 [facility] Diastolic BP 77 mm[Hg] 08/11/2018 45 [facility] Pulse Oximetry 96 % 08/11/[address] [facility] Systolic BP 141 mm[Hg] 08/11/2018 45 [facility] Diastolic BP 82 mm[Hg] 08/11/2018 45 [facility] Neurological norm WDL (08/10/18 1:51 PM) 08/10/2018 45 [facility] Temperature (F) 98.1 [degF] 08/10/2018 45 [facility] [place] Pulse rate 114 bpm 08/10/2018 45 [facility] [place] Pulse Oximetry 96 % 08/10/[address] [facility] [place] Respiratory rate 20 br/min 08/10/2018 45 [facility] [place] HeightLength (cm) 170 cm 08/10/2018 45 [facility] [place] Weight (kg) 90 kg 08/10/2018 45 [facility] Systolic BP 182 mm[Hg] 08/10/2018 45 [facility] Diastolic BP 96 mm[Hg] 08/10/2018 [facility] Dose calculation weight (kg) 90 kg 08/10/2018 45 [facility] [place] Encounters Location Location Details Encounter Type Encounter Number Reason For Visit Attending Provider ADM Date DC Date Status Source 45 45 [facility] Outpatient [id number] FLUTTER TACHYCARD [place] Roscoe Emmett 08/10 Active [facility] 45 45 [facility] Emergency [id number] ABNORMAL ELECTROCA RDIOGRAM Concepcion Villalta 08/10 Active [facility] Procedures Procedure Code Date Perfomer Comments Source ROUTINE VENIPUNCTURE 49102 08/11/2018 45 [facility] ROUTINE VENIPUNCTURE 12762 08/10/2018 [facility] Plan of Care Plan of Care Date Source Diagnostic Tests PendingCult ure Urine 08/10/18 08/11/2018 45 [facility]
--- OUTSIDE RECORDS SUMMARY | 2024-05-21 15:11 | XMS_ITS | Encounter Summary ---
Author Organization [facility] Address [address] [place] [address] Care Team Providers Care Sprinkler Inspector Name Role Phone Ani Stearns NP Primary Care Provi elena Reason for Visit * Reason Comments Pain Encounter Details Date Type Department Care Team (Late st Contact Info) Description 05/08/2024 4:45 PM EST Consult [facility] [address] [phone] Wili Schwab PA 31 [facility] [address] [place] [address] Pain of right hip (Primary Dx); Spondylosis [...] from the original note were not included. [facility] 499 [facility] [address] [phone] Encounter Date: 05/08/24 Assessment & Plan 1. [...] AND ABLATION FOOT SURGERY Right 05/2023 reconstrontion [place] APPENDECTOMY Appendectomy: 2011-10-05 10:33:19 [place] DESTRUCTION VAGINAL LESIONS SIMPLE Ablation Of Vaginal Lesion(S): 2011-10-05 10:33:19 [place] TONSILLECTOMY PRIMARY/SECONDARY <AGE 12 Tonsillectomy: 2011-10-05 10:33:19 [place] UNLISTED PROCEDURE URINARY SYSTEM Bladder Surgery: 2011-10-05 [...] 2:45 PM EDT Consult [facility] [address] [address] Justin Yoo MD [address] [place] [address] [address] [place] [id number] 10/07/2024 3:50 PM EDT Office Visit [facility] Neurology [address] [place] [address] Lee Medley, BRIDGETT 35 [facility] [address] [place] [address] documented as of this encounter Procedures Procedure Name Priority Date/Time Associated Diagnosis Comments XR LUMBAR SPINE 1 VIEW Routine 05/08/2024 4:47 PM EST Pain of right hip XR HIP W PELVIS 2 OR 3 VIEWS-RIGHT Routine 05/08/2024 4:47 PM EST Pain of right hip documented in this encounter Results * XR Lumbar spine 1 view (05/08/2024 4:47 PM EST) Narrative [facility] - 05/08/2024 4:47 PM EST [facility] and images reviewed by orthopedic provider. ??Any findings are documented within ambulatory encounter note on date of service. Wili LIUG DIAGNOSTIC I MAGING ORDERABLES Performing Organization Address [facility] de Phone Number OAH * XR Hip w pelvis 2 or 3 views-Right (05/08/2024 4:47 PM EST) Narrative [facility] - 05/08/2024 4:47 PM EST This [facility] and images reviewed by orthopedic provider. ??Any findings are documented within ambulatory encounter note on date of service. Wili LIUG DIAGNOSTIC I MAGING ORDERABLES Performing Organization Address [facility] Co de Phone Number [facility] documented in this encounter Visit Diagnoses Diagnosis Pain of right hip- Primary Spondylosis of lumbar region without myelopathy or radiculopathy documented in this encounter Care Teams Sprinkler Inspector Relationship Specialty Start Date End Date Ani Stearns NP [address] [place] [address] Dr Hampton, MICHAEL [address] PCP - General 08/14/20 documented as of this encounter
--- OUTSIDE RECORDS SUMMARY | 2024-05-21 15:11 | XMS_ITS | Clinical Summary ---
Author Organization [facility] Address [address] [place] [address] Care Team Providers Care Sample Collector Name Role Phone Jinny Ani Hill NP [...] and she is on hydroxychloroquine from her clammer. Her LV function as checked by nuclear [...] 4:50 PM EST Ancillary Procedure [facility] [address] [phone] 05/08/2024 4:45 PM EST Consult [facility] [address] [address] Wili Schwab PA Pain of right hip (Primary Dx); Spondylosis of lumbar region without myelopathy or radiculopathy 03/20/2024 11:30 AM EST Office Visit [facility] Neurology [address] [address] Lee Medley APRN Essential tremor (Primary Dx) 03/20/2024 Travel 02/28/2024 10:45 AM EST Office Visit [facility] [address] [place] [address] Jacqui Moran APRN Osteoarthritis of [...] 2:45 PM EDT Consult [facility] [place] [address] [place] [address] Justin Yoo MD [address] [facility] [address] [place], [place] 10/07/2024 3:50 PM EDT Office Visit [facility] Neurology [place] 35 [facility] [address] [place] [address] Lee Medley, BRIDGETT 35 [facility] [address] [place] [address] Health Maintenance Due Date Last Done Comments [...] 4:47 PM EST Pain of right hip [place] ARTHROCENTESIS ASPIR&/INJ SMALL JT/BURSA W/O US Routine 02/28/2024 10:45 AM EST Osteoarthritis of ankle and foot, right from Last 3 Months Results * XR Lumbar spine 1 view (05/08/2024 4:47 PM EST) Narrative [facility] - 05/08/2024 4:47 PM EST This exam was performed in office at [facility] and images reviewed by orthopedic provider. ??Any findings are documented within ambulatory encounter note on date of service. Wili LIUG DIAGNOSTIC I MAGING ORDERABLES Performing Organization Address [facility] Co de Phone Number OA * XR Hip w pelvis 2 or 3 views-Right (05/08/2024 4:47 PM EST) Narrative [facility] - 05/08/2024 4:47 PM EST This exam was performed in office at [facility] and images reviewed by orthopedic provider. ??Any findings are documented within ambulatory encounter note on date of service. Wili LIUG DIAGNOSTIC I MAGING ORDERABLES Performing Organization Address [facility] Co de Phone Number OA * [place] ARTHROCENTESIS ASPIR&/INJ SMALL JT/BURSA W/O US (02/28/2024 [...] 10:16 AM 11/15/2021 9:23 AM Care Teams Sample Collector Relationship Specialty Start Date End Date Ani Stearns NP [address] [place] [address] [place] [address] PCP - General 08/14/20
--- OUTSIDE RECORDS SUMMARY | 2024-05-21 15:11 | XMS_ITS | Encounter Summary ---
Author Organization [facility] Address [address] [place] [address] Care Team Providers Care Rn Ent Name Role Phone Ani Stearns NP Primary Care Provi elena Encounter Details Date Type Department Care Team (Late st Contact Info) Description 05/08/2023 Scanned Document [facility] [place] [address] Mariusz Howell MD [address] [place] [address] Social History Tobacco Use Types Packs/Day Years [...] 2:45 PM EDT Consult [facility] [place] [address] [place] [address] Justin Yoo MD [address] [facility] [address] [place] [address] 10/07/2024 3:50 PM EDT Office Visit [facility] Neurology [place] 35 [facility] [address] [place] [address] Lee Medley APRN 35 [facility] [address] [place] [address] documented as of this encounter Visit Diagnoses Not on filedocumented in this encounter Care Teams Rn Ent Relationship Specialty Start Date End Date Ani Stearns NP [address] [place] [address] [place] [address] PCP - General 08/14/20 documented as of this encounter
--- OUTSIDE RECORDS SUMMARY | 2024-05-21 15:11 | XMS_ITS | Encounter Summary ---
Author Organization [facility] Address [address] [place] [address] Care Team Providers Care Infirmary Attendant Name Role Phone Ani Stearns NP Primary Care Provi elena Encounter Details Date Type Department Care Team ([facility] st Contact Info) Description 05/15/2023 Orders Only [facility] [address] [place] [address] Jacqui Moran, BRIDGETT 31 [facility] [address] [place] [address] Other hammer toe(s) (acquired), right foot (Primary [...] 2:45 PM EDT Consult [facility] [place] [address] [place] [address] Justin Yoo MD [address] [facility] [address] [place] [address] 10/07/2024 3:50 PM EDT Office Visit [facility]rology [place] 35 [facility] [address] [place] [address] Lee Medley, BRIDGETT 35 [facility] [address] [place] [address] documented as of this encounter Visit Diagnoses Diagnosis Other hammer toe(s) (acquired), right foot- Primary documented in this encounter Care Teams Infirmary Attendant Relationship Specialty Start Date End Date Ani Stearns NP [address] [place] [address] [place] [address] PCP - General 08/14/20 documented as of this encounter
--- OUTSIDE RECORDS SUMMARY | 2024-05-21 15:11 | XMS_ITS | Encounter Summary ---
Author Organization [facility] Address [address] [place] [address] Care Team Providers Care Charger Operator Helper Name Role Phone Ani Stearns NP Primary Care Provi elena Encounter Details Date Type Department Care Team (Late st Contact Info) Description 05/22/2023 Scanned Document [facility] [place] [address] Mariusz Howell MD [address] [place] [address] Social History Tobacco Use Types Packs/Day Years [...] 2:45 PM EDT Consult [facility] [place] [address] [place] [address] Justin Yoo MD [address] [facility] [address] [place] [address] 10/07/2024 3:50 PM EDT Office Visit [facility] Neurology [place] 35 [facility] [address] [place] [address] Lee Medley APRN 35 [facility] [address] [place] [address] documented as of this encounter Visit Diagnoses Not on filedocumented in this encounter Care Teams Charger Operator Helper Relationship Specialty Start Date End Date Ani Stearns NP [address] [place] [address] [place] [address] PCP - General 08/14/20 documented as of this encounter
--- OUTSIDE RECORDS SUMMARY | 2024-05-21 15:11 | XMS_ITS | Encounter Summary ---
Author Organization [facility] Address [address] [place] [address] Care Team Providers Care Infrastructure Technician Name Role Phone Ani Stearns NP Primary Care Provi elena Encounter Details Date Type Department Care Team (Late st Contact Info) Description 05/21/2023 Scanned Document [facility] [place] [address] Mariusz Howell MD [address] [place] [address] Social History Tobacco Use Types Packs/Day Years [...] 2:45 PM EDT Consult [facility] [place] [address] [place] [address] Justin Yoo MD [address] [facility] [address] [place] [address] 10/07/2024 3:50 PM EDT Office Visit [facility] Neurology [place] 35 [facility] [address] [place] [address] Lee Medley APRN 35 [facility] [address] [place] [address] documented as of this encounter Visit Diagnoses Not on filedocumented in this encounter Care Teams Infrastructure Technician Relationship Specialty Start Date End Date Ani Stearns NP [address] [place] [address] [place] [address] PCP - General 08/14/20 documented as of this encounter
--- OUTSIDE RECORDS SUMMARY | 2024-05-21 15:11 | XMS_ITS | Encounter Summary ---
Author Organization [facility] Address [address] [place] [address] Care Team Providers Care Spray Machine Operator Name Role Phone Ani Stearns Liz VICKIE Primary Care Provi elena Encounter Details Date Type Department Care Team (Late st Contact Info) Description 06/02/2020 Erroneous Encounter [facility] [address] [place] [address] Provider, MD Dexter Social History Tobacco Use [...] 2:45 PM EDT Consult [facility] [place] [address] [place] [address] Justin Yoo MD [address] [place] [address] [address] [place] [address] 10/07/2024 3:50 PM EDT Office Visit [facility] Neurology [address] [place] [address] Lee Medley, BRIDGETT 35 [facility] [address] [place] [address] documented as of this encounter Visit Diagnoses Not on filedocumented in this encounter Care Teams Spray Machine Operator Relationship Specialty Start Date End Date Ani Stearns NP [address] [place] [address] [place] [address] PCP - General 08/14/20 documented as of this encounter
--- OUTSIDE RECORDS SUMMARY | 2024-05-21 15:11 | XMS_ITS | Encounter Summary ---
Author Organization [facility] Address [address] [place] [address] Care Team Providers Care Health Facilities Surveyor Name Role Phone Ani Stearns NP Primary Care Provi elena Encounter Details Date Type Department Care Team (Late st Contact Info) Description 05/21/2023 Scanned Document [facility] [address] Mariusz Howell MD [address] [place] [address] Social History Tobacco Use Types Packs/Day Years [...] 2:45 PM EDT Consult [facility] [place] [address] [place] [address] Justin Yoo MD [address] [facility] [address] [place] [address] 10/07/2024 3:50 PM EDT Office Visit [facility] Neurology [place] 35 [facility] [address] [place] [address] Lee Medley APRN 35 [facility] [address] [place] [address] documented as of this encounter Visit Diagnoses Not on filedocumented in this encounter Care Teams Health Facilities Surveyor Relationship Specialty Start Date End Date Ani Stearns NP [address] [place] [address] [place] [address] PCP - General 08/14/20 documented as of this encounter
--- OUTSIDE RECORDS SUMMARY | 2024-05-21 15:12 | XMS_ITS | Clinical Summary ---
Author Organization [facility] Address [address] [place] [address] Care Team Providers Care Car Restorer Name Role Phone Unavailable Primary Care Provider [...]
[2024-05-21 18:33] LABS: Appearance Urine Clear; Color Urine Yellow; Glucose Urine UA Negative (Negative); Leukocyte Esterase Urine Trace (Negative); Nitrite Urine Negative (Negative); PH 6.5 (5.0-9.0); UMIC TRIGGER UA YES; Urine Blood Negative (Negative); Urine Ketones Negative (Negative); Urine Protein Negative (Neg-Trace)
[2024-05-21 18:36] LABS: Bacteria Urine None Seen (None Seen); Hyaline Casts Urine 0-2 /LPF (0-2); RBC Urine 0-2 /HPF (0-2); Squamous Epithelial Cell Urine 0-2 /HPF (0-2); WBC Urine 0-5 /HPF (0-5)
[2024-05-21 18:59] LABS: Total Protein Urine Random < 7 mg/dL (<12)
== END 2024-05-21 13:02 | disposition home or self-care (01) ==
LOC: HO.HKASLDS 13:01
PROVIDERS: Visit Provider Internal Medicine Rheumatology
DX: M32.9 Systemic lupus erythematosus, unspecified (principal)
CPT/HCPCS: 81001; 82570; 84156

== ENCOUNTER 2024-08-19 08:32 | Outpatient (AMB) | payer MEDICARE, SELFPAY ==
--- NOTE | 2024-08-19 08:36 | A.OFFVIS_ITS ---
Vital Signs 08/19/24 08:37 Height 6 ft 2 in Weight 220 lb BMI 28.2 BP 130/80 Blood Pressure Location Lt brachial Position Sitting Pulse 82 Pulse Source Pulse Oximeter Pulse Oximetry (%) 98 Oxygen Delivery Method Room Air Intake Visit Reasons: 3 Months Allergies nitrofurantoin [From Macrodantin] Allergy (Mild, Verified 08/19/24 08:40) diarrhea, vomiting spironolactone Allergy (Mild, Verified 08/19/24 08:40) Rash cecor Allergy (Intermediate, Uncoded 02/12/24 08:24) Anaphylaxis penicillin Allergy (Mild, Uncoded 02/12/24 08:24) Rash sulfa Adverse Reaction (Mild, Uncoded 02/12/24 08:24) Unknown HPI HPI 3 Months: Details: She had BCC removed in June frontal lobe. Wound was infected after tonny were removed. August 25 she is planning SI joint cortisone injection. She had a tooth abscess. Then she was on prednisone for asthma exacerbation. She had walking PNA in July. She was going to PT and uses crutching. She slipped in bathroom last Sunday. She has groin pain from slipping. Standing causes back spasms. She is able to ambulate without using crutches. She is going to be holding physical therapy because she will be staying at her [facility] house over the summer. She held HCQ after wound infection for a month. Denies fevers, pleurisy, new joint pain or stiffness or joint swelling or urinary symptoms. She had left knee joint pain and swelling, which subsided after cortisone injection obtained from orthopedic surgeon. [facility] Medical History Walking pneumonia Basal cell carcinoma (BCC) Physical Exam Vital Signs: Last Vital Signs Pulse 82 08/19/24 08:37 BP 130/80 08/19/24 08:37 Pulse Ox 98 08/19/24 08:37 Oxygen Delivery Method Room Air 08/19/24 08:37 BMI result Body Mass Index 28.2 Const Other: General: Comfortable CVS: RRR Respiratory: clear to auscultation bilaterally. Good respiratory effort Skin: No lesions seen MSK: No tenderness of any joints. No synovitis. Good range of motion of upper extremities. Limited bilateral knee flexion and external rotation of hips. Results Reviewed Results Reviewed: MRI L-spine May 2024 reviewed Assessment & Plan Assessment & Plan (1) SLE (systemic lupus erythematosus): Comment: She has serological activity with mild elevation in double-stranded DNA downtrending from labs compared to February 2024. Clinically quiescent. She has been off of hydroxychloroquine for a month due to wound infection. She does not have active infection and is safe to restart hydroxychloroquine. History of systemic lupus erythematosus mild with secondary Sjogren syndrome and Raynaud's phenomenon affecting her feet. OFELIA positive 1:80, indeterminate double-stranded DNA, SSA/SSB negative. Dry eyes, dry mouth, fatigue, mouth ulcers, nose ulcers with history of flares of thrush on tongue with oral nasopharyngeal ulcers. Initially hydroxychloroquine 400 mg q.d. controlled hand pain. Changed HCQ to 200 mg q.d. 01/29/2023 after diagnosis of age-related macular degeneration in clinical quiescence state. She remains in clinical remission on hydroxychloroquine 200 mg daily. Code(s): M32.9 - Systemic lupus erythematosus, unspecified Category: Medical Qualifiers: Systemic lupus erythematosus type: unspecified Systemic lupus erythematosus organ involvement: unspecified Qualified Code(s): M32.9 - Systemic lupus erythematosus, unspecified Plan: Resume hydroxychloroquine 200 mg daily. Hx ARMD. Requesting last eye exam. Eye exam OCT 01/29/2023, 05/01/2023 are okay. Labs for disease and drug monitoring on high-risk medication ordered Return to clinic in 3 months (2) Osteopenia: Comment: Osteopenia history with high fracture risk. History of hairline pelvic fracture. She had history of traumatic T-spine fracture age 43 after falling and hitting knee. Previously treated with Fosamax from 2019 or [id number]. She has been on drug holiday. Prior x-ray L-spine reveal possibility of compression fracture but follow-up MRI L-spine May 2024 did not reveal compression fracture. Code(s): M85.80 - Other specified disorders of bone density and structure, unspecified site Category: Medical Qualifiers: Osteopenia location: unspecified Qualified Code(s): M85.80 - Other specified disorders of bone density and structure, unspecified site Plan: Follow-up with PCP in regards to scheduling bone density. She has had treatment for osteopenia with PCP Vitamin-D level normal from last visit Return to clinic in 3 months (3) Sjogren syndrome: Comment: Secondary Sjogren syndrome is controlled. Dry mouth is controlled on pilocarpine. Code(s): M35.00 - Sjogren syndrome, unspecified Category: Medical Qualifiers: Sjogren organ or system involvement: without extraglandular involvement Qualified Code(s): M35.00 - Sjogren syndrome, unspecified Plan: Continue pilocarpine 5 mg t.i.d. Return to clinic in 3 months (4) Other penitentiary (current) drug therapy: Code(s): Z79.899 - Other penitentiary (current) drug therapy Category: Medical Plan: See above (5) Raynaud disease: Comment: Controlled with conservative management Code(s): I73.00 - Raynaud's syndrome without gangrene Category: Medical Qualifiers: Raynaud?s-associated gangrene presence: without gangrene Qualified Code(s): I73.00 - Raynaud's syndrome without gangrene Plan: Continue conservative management Return to clinic in 3 months Plan See above Orders: Orders Complete Blood Count Man Dif Today M32.9 - Systemic lupus erythematosus, unspecified Alanine Aminotransferase Today M32.9 - Systemic lupus erythematosus, unspecified Aspartate Amino Transferase Today M32.9 - Systemic lupus erythematosus, unspecified Creatinine Today M32.9 - Systemic lupus erythematosus, unspecified C Reactive Protein Today M32.9 - Systemic lupus erythematosus, unspecified Erythrocyte Sedimentation Rate Today M32.9 - Systemic lupus erythematosus, unspecified UA w Microscopic Today M32.9 - Systemic lupus erythematosus, unspecified Anti DNA DS Antibody Today M32.9 - Systemic lupus erythematosus, unspecified Protein Creatinine Ratio, Ur Today M32.9 - Systemic lupus erythematosus, unspecified Complement C4 Today M32.9 - Systemic lupus erythematosus, unspecified Complement C3 Today M32.9 - Systemic lupus erythematosus, unspecified Coding Level of Care Code Est Pt Level 4 (59106) Complex EM visit Add On G2211 Diagnoses Systemic lupus erythematosus, unspecified SLE type, unspecified organ involvement status M32.9 Systemic lupus erythematosus type: unspecified Systemic lupus erythematosus organ involvement: unspecified Osteopenia, unspecified location M85.80 Osteopenia location: unspecified Sjogren's syndrome without extraglandular involvement M35.00 Sjogren organ or system involvement: without extraglandular involvement Other termite technician (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
[2024-08-19 08:37] VITALS: BP 130/80; PULSE 82; O2SAT 98; BMI 28.2
--- OUTSIDE RECORDS SUMMARY | 2024-08-19 08:50 | XMS_ITS | Continuity of Care Document ---
Author Name [facility] Organization [facility] Care Team Providers Care Shank Scourer Name Role Phone [facility] Unavailable Unavailable Problems Problem Status Onset Date Classification Date Reported Comments Source Generalized weakness 08/10/2018 08/11/2018 45 [facility] Jaw pain 08/10/2018 08/11/[address] [facility] Acute UTI 08/10/2018 08/11/2018 45 [facility] Syncope, near 08/10/2018 [facility]11/[facility] 08/10/2018 08/11/2018 45 [facility] EKG abnormalities 08/10/2018 08/11/2018 45 [facility] Medications Medication Details Route Status Patient Instructions Ordering Provider Order Date Source Sulfamethoxazole 800 MG / Trimethoprim 160 MG Oral Tablet [Bactrim] = 1 Tab, ORAL, BID, X 5 Day(s), # 10 Tab, Indication= Urinary Tract Infection (UTI), 0 Refill(s), Acute Active 019 45 [facility] [place] Allergies, Adverse Reactions, Alerts Substance Category Reaction Severity Reaction type Status Date Reported Comments Source codeine Assertion Drug allergy Active 45 [facility] penicillin Assertion Drug allergy Active 45 [facility] estrogens Assertion Drug allergy Active 45 [facility] Macrodantin Assertion Drug allergy Active 45 [facility] Ceclor Assertion Drug allergy Active 45 [facility] spironolacton e and analogues Assertion Drug allergy Active 45 [facility] Results Order Name Results Value Reference Range Date Interpretation Comments Source DDimerQnt D-Dimer, Qnt 0.55 mg/L - <=0.50 08/10 H Based on forging roll operator 's specificatio ns, PE/DVT risk related cutoff at0.50 mg/L the assay had a sensitivity of 97%, specificity of 42%, andNPV of 98% for ruling out PE/DVT. [facility] AutoDiff* Auto Neutrophil Percent 53.2 % 40.0 - 80.0 08/10 NA [facility] AutoDiff* Auto Neutrophil Absolute 3.2 K/uL 08/10 NA [facility] AutoDiff* Auto Lymphocyte Percent 30.9 % 18.0 - 45.0 08/10 NA [facility] AutoDiff* Auto Lymphocyte Absolute 1.9 K/uL 08/10 NA [facility] [place] AutoDiff* Auto Monocyte Percent 11.5 % 3.0 - 12.0 08/10 NA [facility] [place] AutoDiff* Auto Monocyte Absolute 0.7 K/uL 08/10 NA [facility] [place] AutoDiff* Auto Eosinophil Percent 3.3 % - <=7.0 08/10 NA [facility] [place] AutoDiff* Auto Eosinophil Absolute 0.2 K/uL 08/10 NA [facility] [place] AutoDiff* Auto Basophil Percent 1.1 % - <=2.0 08/10 NA [facility] [place] AutoDiff* Auto Basophil Absolute 0.1 K/uL 08/10 NA [facility] [place] CBC WBC 6.0 K/uL 3.5 - 10.4 08/10 NA [facility] CBC RBC 4.57 M/uL 3.60 - 5.40 08/10 NA [facility] CBC HGB 13.2 gm/dL 12.0 - 16.0 08/10 NA [facility] CBC HCT 41.3 % 37.0 - 47.0 08/10 NA [facility] CBC MCV 90.4 fL 82.0 - 101.0 08/10 NA [facility] CBC MCH 28.9 pg 26.0 - 34.0 08/10 NA [facility] CBC MCHC 31.9 gm/dL 32.0 - 36.0 08/10 L [facility] [place] CBC RDW 14.2 % 11.0 - 15.0 08/10 NA [facility] [place] CBC PLT 219 K/uL 140 - 440 08/10 [facility] CBC MPV 8.5 fL 7.9 - 10.8 08/10 NA [facility] [place] CMP Sodium Level 140 mmol/L 136 - 145 08/10 NA [facility] [place] CMP Potassium Level 3.4 mmol/L 3.5 - 5.1 08/10 L [facility] [place] CMP Chloride Level 107 mmol/L 98 - 107 08/10 NA [facility] [place] CMP CO2/Carbon Dioxide 24 mmol/L 21 - 32 08/10 NA [facility] [place] CMP Anion Gap 9 mmol/L 4 - 16 08/10 [facility] CMP Glucose, Random 104 mg/dL 70 - 95 08/10 H Reference ranges are based on a fasting specimen. [facility] CMP BUN 16 mg/dL 7 - 20 08/10 [facility] CMP Creatinine 0.7 mg/dL 0.6 - 1.1 08/10 NA [facility] [place] CMP BUN/Creat Ratio 22.9 08/10 [facility] CMP Osmolality, Calculated 291 08/10 [facility] CMP Calcium Level 9.0 mg/dL 8.6 - 10.0 08/10 [facility] CMP Total Protein 7.3 gm/dL 6.4 - 8.2 08/10 [facility] CMP Albumin Level 4.1 gm/dL 3.5 - 5.0 08/10 NA [facility] [place] CMP Globulin Level 3.2 gm/dL 2.0 - 4.0 08/10 [facility] [place] CMP A/G Ratio 1.3 1.1 - 2.2 08/10 [facility] [place] CMP ALP 50 units/L 38 - 126 08/10 NA [facility] [place] CMP ALT 14 units/L 10 - 40 08/10 [facility] [place] CMP AST 19 units/L 15 - 41 08/10 [facility] CMP Bilirubin, Total 0.5 mg/dL - <=1.0 08/10 NA [facility] [place] CMP GFR - Non >60 mL/min/1.7 3m2 08/10 NA <60 = Renal Insufficienc y, <15 = Renal Failure. This equation is not applicable to person's under 18 years of age.eGFR calculation based on the IDMS traceable four-paramet er MDRD equation. [facility] CMP GFR - >60 mL/min/1.7 3m2 08/10 NA [facility] Trop Troponin I <0.02 ng/mL - [...] testing may be helpful for interpretati on. [facility] UADwMCSIf UA - Source/Collec t Type Urine Clean Cat 08/10 NA [facility] UADwMCSIf UA - Appearance CLEAR Clear 08/10 NA [facility] UADwMCSIf UA - Color YELLOW 08/10 NA [facility] UADwMCSIf UA - pH 6.0 5.0 - 8.0 08/10 NA [facility] UADwMCSIf UA - Specific Thicket 1.010 1.010 - 1.025 08/10 NA [facility] UADwMCSIf UA - Protein NEGATIVE Negative 08/10 NA [facility] UADwMCSIf UA - Glucose NEGATIVE Negative 08/10 [facility] UADwMCSIf UA - Ketones NEGATIVE Negative 08/10 [facility] UADwMCSIf UA - Bilirubin NEGATIVE Negative 08/10 NA [facility] UADwMCSIf UA - Blood NEGATIVE Negative 08/10 NA [facility] UADwMCSIf UA - Urobilinogen 0.2 0.1 - 1.0 08/10 NA [facility] UADwMCSIf UA - Nitrites NEGATIVE Negative 08/10 [facility] UADwMCSIf UA - Leukocyte Esterase SMALL Negative 08/10 * [facility] UADwMCSIf UA Micro Y/N Yes 08/10 NA [facility] UADwMCSIf Urine Culture Y/N Yes 08/10 NA [facility] UAMicro* UA - WBC 6-10 /HPF 0 - 5 08/10 * [facility] UAMicro* UA - RBC 0-2 /HPF 0 - 2 08/10 NA [facility] UAMicro* UA - Bacteria Moderate /HPF Negative 08/10 * [facility] UAMicro* UA - Epithelials, Squamous Few 08/10 NA [facility] C Urine C Urine Final:DANIEL ECTION [...] laboratory , or contact the Microbiolo gy Major Assembly Lineman for consultati on. Performed at: [facility] Central Lab, CLIA# [id number] [place] [address] 08/10 [facility] Diagnostic Reports Report Value Date Source Chest 1 Vw Portable INDICATION: Weakness COMPARISON: None. TECHNIQUE: AP upright chest x-ray was obtained. FINDINGS: There is no focal consolidation, pleural effusion or pneumothorax. The cardiomediastinal silhouette is within normal limits. Regional osseous structures are unremarkable. IMPRESSION: No acute cardiopulmonary findings. 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 Patient went [facility] where ECG abnormalities were [...] UA - Appearance Clear UA - Specific Thicket 1.010 UA - pH 6.0 UA - [...] August 10, 2018, 5:00 PM. . 08/10/2018 [facility] Vital Signs Vital Sign Value Date Comments Source Pulse rate 95 bpm 08/11/2018 45 [facility] Respiratory rate 18 br/min 08/11/2018 45 [facility] Temperature (F) 97.5 [degF] 08/11/2018 [facility] [place] Pulse Oximetry 97 % 08/11/[address] [facility] [place] Systolic BP 132 mm[Hg] 08/11/2018 45 [facility] [place] Diastolic BP 77 mm[Hg] 08/11/2018 45 [facility] [place] Pulse Oximetry 96 % 08/11/[address] [facility] [place] Systolic BP 141 mm[Hg] 08/11/2018 45 [facility] [place] Diastolic BP 82 mm[Hg] 08/11/2018 45 [facility] [place] Neurological norm WDL (08/10/18 1:51 PM) 08/10/2018 45 [facility] [place] Temperature (F) 98.1 [degF] 08/10/2018 45 [facility] [place] Pulse rate 114 bpm 08/10/2018 45 [facility] [place] Pulse Oximetry 96 % 08/10/[address] [facility] [place] Respiratory rate 20 br/min 08/10/2018 45 [facility] [place] HeightLength (cm) 170 cm 08/10/2018 [facility] [place] Weight (kg) 90 kg 08/10/2018 45 [facility] [place] Systolic BP 182 mm[Hg] 08/10/2018 45 [facility] [place] Diastolic BP 96 mm[Hg] 08/10/2018 45 [facility] [place] Dose calculation weight (kg) 90 kg 08/10/2018 45 [facility] [place] Encounters Location Location Details Encounter Type Encounter Number Reason For Visit Attending Provider ADM Date DC Date Status Source 45 45 [facility] [place] [id number] FLUTTER TACHYCARD [place] 08/10 Active [facility] 45 45 [facility] Emergency [id number] ABNORMAL ELECTROCA RDIOGRAM Concepcion [place] 08/10 Active [facility] Procedures Procedure Code Date Perfomer Comments Source ROUTINE VENIPUNCTURE [id number] 08/11/2018 45 [facility] [place] ROUTINE VENIPUNCTURE 09846 08/10/2018 45 [facility] [place] Plan of Care Plan of Care Date Source Diagnostic Tests PendingCult ure Urine 08/10/18 08/11/2018 45 [facility] [place]
== END 2024-08-19 09:40 | disposition home or self-care (01) ==
LOC: HO.RHES 08:33
PROVIDERS: PCP Nurse Practitioner Adult Health; Visit Provider Internal Medicine Rheumatology
DX: M32.9 Systemic lupus erythematosus, unspecified (principal); M85.80 Other specified disorders of bone density and structure, unspecified site; M35.00 Sjogren syndrome, unspecified; Z79.899 Other long term (current) drug therapy; I73.00 Raynaud's syndrome without gangrene
CPT/HCPCS: 99214; G2211

== ENCOUNTER → 2024-08-19 08:32 | Outpatient (BNVA) | payer MEDICARE, SELFPAY | PROVIDERS: PCP Nurse Practitioner Adult Health; Visit Provider Internal Medicine Rheumatology ==

== ENCOUNTER 2024-08-19 09:33 | Outpatient (REF) | payer MEDICARE, SELFPAY | END 2024-08-19 09:34 | disposition home or self-care (01) | LOC: HO.HKASLDS 09:33 | PROVIDERS: Visit Provider Internal Medicine Rheumatology | DX: M32.9 Systemic lupus erythematosus, unspecified (principal); M35.00 Sjogren syndrome, unspecified; M85.80 Other specified disorders of bone density and structure, unspecified site; I73.00 Raynaud's syndrome without gangrene; Z79.899 Other long term (current) drug therapy | CPT/HCPCS: 99212 ==

== ENCOUNTER 2024-09-08 09:32 | Outpatient (REF) | payer MEDICARE, SELFPAY ==
--- OUTSIDE RECORDS SUMMARY | 2024-09-08 09:55 | XMS_ITS | Encounter Summary ---
Author Organization [facility] Address [address] [place] [address] Care Team Providers Care Hand Bootmaker Name Role Phone Ani Stearns NP Primary Care Provi elena Encounter Details Date Type Department Care Team (Late st Contact Info) Description 05/15/2023 Orders Only [facility] [address] [place] [address] Jacqui Moran, BRIDGETT 31 [facility] [address] [place] [address] Other hammer toe(s) (acquired), right foot (Primary [...] more drinks on one occasion? Never 09/07/2021 Comments No Sex and Gender Information Value Date Recorded Sex Assigned at Female 07/24/2022 4:28 PM EDT Legal Sex Female 4:38 PM EDT Gender Identity Female 07/24/2022 4:28 PM EDT Sexual Orientation Choose not to disclose 2022 4:28 PM EDT documented as of this encounter Plan of Treatment Upcoming Encounters Date Type Department Care Team (Late st Contact Info) Description 10/07/2024 3:50 PM EDT Office Visit [facility] [place] [address] [facility] [address] [place] [address] Lee Medley, SHUFFLE BOARD OPERATOR [address] [facility] [address] [place] [address] 11/04/2024 8:30 AM EDT Office Visit [facility] [address] [place], [place] [id number] Justin Yoo MD [address] [facility] [address] [place], [place] [id number] documented as of this encounter Visit Diagnoses Diagnosis Other hammer toe(s) (acquired), right foot- Primary documented in this encounter Care Teams Hand Bootmaker Relationship Specialty Start Date End Date Ani Stearns NP [address] [place] [address] [place] [address] PCP - General 08/14/20 documented as of this encounter
[2024-09-08 10:35] LABS: Eos%MD 4.7 %; Hematocrit 42.8 % (37.0-47.0); Hemoglobin 13.6 g/dl (12.0-16.0); IG%MD 0.2 %; Mean Corpuscular HGB Conc 31.8 g/dl (31.0-35.0); Mean Corpuscular Hemoglobin 29.3 pg (27.0-33.0); Mean Corpuscular Volume 92.2 fL (80.0-98.0); Neut%MD 34.1 %; Platelet Count 298 X10*3/uL (160-400); Red Blood Count 4.64 X10*6/uL (4.20-5.50); White Blood Count 4.5 X10*3/uL (4.8-10.8)
[2024-09-08 10:56] LABS: Appearance Urine Clear; Color Urine Yellow; Glucose Urine UA Negative (Negative); Leukocyte Esterase Urine Trace (Negative); Nitrite Urine Negative (Negative); PH 6.5 (5.0-9.0); UMIC TRIGGER UA YES; Urine Blood Negative (Negative); Urine Ketones Negative (Negative); Urine Protein Negative (Neg-Trace)
[2024-09-08 10:59] LABS: Bacteria Urine None Seen (None Seen); Hyaline Casts Urine 0-2 /LPF (0-2); RBC Urine 0-2 /HPF (0-2); Squamous Epithelial Cell Urine 0-2 /HPF (0-2); WBC Urine 0-5 /HPF (0-5)
[2024-09-08 11:09] LABS: Atypical Lymph Absolute Manual 0.2 x10*3/uL; Atypical Lymphs Percent Manual 5 % (0-6); Basophils Abs Manual 0.1 X10*3/uL (0.0-0.2); Basophils Percent Manual 2 % (0-2); Eosinophils Absolute Manual 0.1 X10*3/uL (0.0-0.4); Eosinophils Percent Manual 3 % (0-4); Lymphocytes Absolute Manual 2.1 X10*3/uL (1.2-4.9); Lymphocytes Percent Manual 47 % (20-40); Monocytes Absolute Manual 0.5 X10*3/uL (0.1-1.2); Monocytes Percent Manual 11 % (2-11); Neutrophils Percent Manual 32 % (45-73)
[2024-09-08 11:10] LABS: Platelet Estimate NORMAL (NORMAL); Platelet Morphology Comment NOTED; RBC Morphology NORMAL
[2024-09-08 11:11] LABS: Large Platelet PRESENT
[2024-09-08 11:12] LABS: Erythrocyte Sedimentation Rate 16 MM/HR (0-20)
[2024-09-08 11:16] LABS: Alanine Aminotransferase 14 U/L (0-31); Aspartate Amino Transferase 20 U/L (5-31); C Reactive Protein 0.23 mg/dL (< or = 0.50); Estimated Glomerular Filt Rate > 60
[2024-09-08 11:53] LABS: Creatinine Urine 45.11 mg/dL; Total Protein Urine Random < 7 mg/dL (<12)
[2024-09-08 13:01] LABS: Band Neutrophils Percent 0 % (3-5); Neutrophils Absolute Manual 1.4 X10*3/uL (2.0-8.3)
[2024-09-09 21:24] LABS: Anti DNA DS Antibody 8 IU/mL
[2024-09-10 01:54] LABS: Complement C3 147 mg/dL (83-193)
== END 2024-09-08 09:33 | disposition home or self-care (01) ==
LOC: HO.LAB 09:32
PROVIDERS: PCP Nurse Practitioner Adult Health; Visit Provider Internal Medicine Rheumatology
DX: M32.9 Systemic lupus erythematosus, unspecified (principal)
CPT/HCPCS: 36415; 81001; 82565; 82570; 84156; 84450; 84460; 85007; 85027; 85652; 86140; 86160; 86225

== ENCOUNTER 2025-02-19 08:08 | Outpatient (AMB) | payer MEDICARE, SELFPAY ==
--- NOTE | 2025-02-19 08:12 | A.OFFVIS_ITS ---
Vital Signs 02/19/25 08:13 Height 6 ft 2 in Weight 210 lb BMI 27.0 BP 122/80 Blood Pressure Location Rt brachial Position Sitting Pulse 86 Pulse Source Pulse Oximeter Pulse Oximetry (%) 96 Oxygen Delivery Method Room Air Intake Visit Reasons: 3 months Intake Note: Patient presents today for sle follow up. Accompanied by: Self / Same As Patient Allergies nitrofurantoin (From Macrodantin) Allergy (Mild, Verified 02/19/25 08:13) diarrhea, vomiting spironolactone Allergy (Mild, Verified 02/19/25 08:13) Rash cecor Allergy (Intermediate, Uncoded 02/12/24 08:24) Anaphylaxis penicillin Allergy (Mild, Uncoded 02/12/24 08:24) Rash sulfa Adverse Reaction (Mild, Uncoded 02/12/24 08:24) Unknown HPI HPI 3 months: Details: Denies fevers, dyspnea, pleurisy, rash, oral ulcers, urinary symptoms, joint swelling. Raynauds syndrome toes turn purple. Managed with wool socks and slippers. She gets thrush after antibiotic. She is experiencing increased back pain due to lumbar spondylosis and cervical canal stenosis. She also has history of scoliosis. She is not a candidate for surgery. She completed PT in the past. She uses cyclobenzaprine q.h.s. she sleeps for 7 hours straight when she takes it. Cyclobenzaprine was prescribed by orthopedic surgeon. She also has history of knee osteoarthritis. She was told she has [id number] arthritis by her orthopedic surgery. She is having a hard time losing weight. She is eating healthy. [facility] Medical History Walking pneumonia Basal cell carcinoma (BCC) Physical Exam Vital Signs: Last Vital Signs Pulse 86 02/19/25 08:13 BP 122/80 02/19/25 08:13 Pulse Ox 96 02/19/25 08:13 Oxygen Delivery Method Room Air 02/19/25 08:13 BMI result Body Mass Index 27.0 Const Other: General: Comfortable CVS: RRR Respiratory: clear to auscultation bilaterally. Good respiratory effort Skin: No lesions seen MSK: No tenderness of any joints. No synovitis. Good range of motion of upper extremities. Limited bilateral knee flexion and external rotation of hips. Assessment & Plan Assessment & Plan (1) SLE (systemic lupus erythematosus): Comment: In clinical remission. Labs from August 2024 reveal indeterminate double-stranded DNA. History of systemic lupus erythematosus mild with secondary Sjogren syndrome and Raynaud's phenomenon affecting her feet. OFELIA positive 1:80, indeterminate double-stranded DNA, SSA/SSB negative. Dry eyes, dry mouth, fatigue, mouth ulcers, nose ulcers with history of flares of thrush on tongue with oral n asopharyngeal ulcers. Initially hydroxychloroquine 400 mg q.d. controlled hand pain. Changed HCQ to 200 mg q.d. 01/29/2023 after diagnosis of age-related macular degeneration after speaking with tester printed circuit boards's Dr. Vallejo. Code(s): M32.9 - Systemic lupus erythematosus, unspecified Category: Medical Qualifiers: Systemic lupus erythematosus organ involvement: unspecified Systemic lupus erythematosus type: unspecified Qualified Code(s): M32.9 - Systemic lupus erythematosus, unspecified Plan: Continue hydroxychloroquine 200 mg daily. Hx ARMD. Eye exam visual field and DECFebruary 2024 OK. Labs for disease and drug monitoring on high-risk medication ordered Return to clinic in 6 months (2) Osteopenia: Comment: Osteopenia history with high fracture risk. History of hairline pelvic fracture. She had history of traumatic T-spine fracture age 43 after falling and hitting knee. Previously treated with Fosamax from 2019 or [id number]. She has been on drug holiday. Prior x-ray L-spine reveal possibility of compression fracture but follow-up MRI L-spine May 2024 did not reveal compression fracture. Lost 2.5 inches (from 6 ft 1 in to 5 ft 10-,1/2 inches). She had a bone density 4 months ago. Code(s): M85.80 - Other specified disorders of bone density and structure, unspecified site Category: Medical Qualifiers: Osteopenia location: unspecified Qualified Code(s): M85.80 - Other specified disorders of bone density and structure, unspecified site Plan: Requesting bone density report Due to height loss, vertebral fracture assessment is indicated Return to clinic in 6 months (3) Sjogren syndrome: Comment: Secondary Sjogren syndrome is controlled. Dry mouth is controlled on pilocarpine. Code(s): M35.00 - Sjogren syndrome, unspecified Category: Medical Qualifiers: Sjogren organ or system involvement: without extraglandular involvement Qualified Code(s): M35.00 - Sjogren syndrome, unspecified Plan: Continue pilocarpine 5 mg t.i.d. Return to clinic in 6 months (4) Other intermediate accountant (current) drug therapy: Code(s): Z79.899 - Other intermediate accountant (current) drug therapy Category: Medical Plan: See above (5) Raynaud disease: Comment: Controlled with conservative management Code(s): I73.00 - Raynaud's syndrome without gangrene Category: Medical Qualifiers: Raynaud?s-associated gangrene presence: without gangrene Qualified Code(s): I73.00 - Raynaud's syndrome without gangrene Plan: Continue conservative management Return to clinic in 6 months (6) Advised about management of weight: Comment: She has history of lumbar spondylosis, cervical spine stenosis and scoliosis contributing to uncontrolled back pain. She also has osteoarthritis of her knees. We discussed the importance of weight loss. She is having a hard time losing weight with healthy eating. Pain from arthritis limits her activity. She was declined from weight loss clinic because of her normal BMI. She is 210 lb. Losing 20-30 lb will significantly provide positive impact in reducing her pain in her weight bearing joints and back. Code(s): Z78.9 - Other specified health status Category: Medical Plan: She will resume exercises learned from PT in the past and try to exercise as she tolerates Continue eating healthy I recommend that she discuss weight loss medication with her PCP. Consider endocrinology referral Plan See above Orders: Orders Erythrocyte Sedimentation Rate Today M32.9 - Systemic lupus erythematosus, unspecified Alanine Aminotransferase Today M32.9 - Systemic lupus erythematosus, unspecified Complement C3 Today M32.9 - Systemic lupus erythematosus, unspecified Complement C4 Today M32.9 - Systemic lupus erythematosus, unspecified Anti DNA DS Antibody Today M32.9 - Systemic lupus erythematosus, unspecified UA ClnCatch+Micro w/rflx Cult Today M32.9 - Systemic lupus erythematosus, unspecified C Reactive Protein Today M32.9 - Systemic lupus erythematosus, unspecified Complete Blood Count Auto Diff Today M32.9 - Systemic lupus erythematosus, unspecified Protein Creatinine Ratio, Ur Today M32.9 - Systemic lupus erythematosus, unspecified Aspartate Amino Transferase Today M32.9 - Systemic lupus erythematosus, unspecified Creatinine Today M32.9 - Systemic lupus erythematosus, unspecified Medications: Refilled pilocarpine HCl 5 mg PO TID 90 tabs 4RF hydroxychloroquine 200 mg PO DAILY 90 tabs 1RF Coding Level of Care Code Est Pt Level 4 (81146) Add On Problem Visit Only Diagnoses Systemic lupus erythematosus, unspecified SLE type, unspecified organ involvement status M32.9 Systemic lupus erythematosus organ involvement: unspecified Systemic lupus erythematosus type: unspecified Osteopenia, unspecified location M85.80 Osteopenia location: unspecified Sjogren's syndrome without extraglandular involvement M35.00 Sjogren organ or system involvement: without extraglandular involvement Other correction (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 Advised about management of weight Z78.9
[2025-02-19 08:13] VITALS: BP 122/80; PULSE 86; O2SAT 96; BMI 27.0
== END 2025-02-19 09:01 | disposition home or self-care (01) ==
LOC: HO.RHES 08:09
PROVIDERS: PCP Nurse Practitioner Adult Health; Visit Provider Internal Medicine Rheumatology
DX: M32.9 Systemic lupus erythematosus, unspecified (principal); M85.80 Other specified disorders of bone density and structure, unspecified site; M35.00 Sjogren syndrome, unspecified; Z79.899 Other long term (current) drug therapy; I73.00 Raynaud's syndrome without gangrene; Z78.9 Other specified health status
CPT/HCPCS: 99214; G2211

== ENCOUNTER 2025-02-19 08:08 | Outpatient (REF) | payer MEDICARE, SELFPAY ==
[2025-02-19 14:11] LABS: MANUAL DIFF FLAG NO
[2025-02-19 14:17] LABS: Hematocrit 41.7 % (37.0-47.0); Hemoglobin 13.1 g/dl (12.0-16.0); Imm Gran Abs Auto 0.00 X10*3/uL (0.00-0.03); Imm Gran Pct Auto 0.0 % (0.0-0.4); Lymphocytes Absolute Auto 2.4 X10*3/uL (1.2-4.9); Mean Corpuscular HGB Conc 31.4 g/dl (31.0-35.0); Mean Corpuscular Hemoglobin 28.9 pg (27.0-33.0); Mean Corpuscular Volume 92.1 fL (80.0-98.0); NRBC Abs Auto 0.000 X10*3/uL (0.0-0.012); NRBC Pct Auto 0.0 /100WBC (0.0-0.2); Platelet Count 273 X10*3/uL (160-400); Red Blood Count 4.53 X10*6/uL (4.20-5.50); White Blood Count 4.6 X10*3/uL (4.8-10.8)
[2025-02-19 14:27] LABS: Alanine Aminotransferase 12 U/L (0-31); Aspartate Amino Transferase 23 U/L (5-31); Estimated Glomerular Filt Rate > 60
== END 2025-02-19 08:09 | disposition home or self-care (01) ==
LOC: HO.HKASLDS 08:08
PROVIDERS: PCP Nurse Practitioner Adult Health; Visit Provider Internal Medicine Rheumatology
DX: M32.9 Systemic lupus erythematosus, unspecified (principal); M85.80 Other specified disorders of bone density and structure, unspecified site; M35.00 Sjogren syndrome, unspecified; I73.00 Raynaud's syndrome without gangrene; Z79.899 Other long term (current) drug therapy; Z78.9 Other specified health status
CPT/HCPCS: 36415; 82565; 84450; 84460; 85025; 85652; 86140; 86160; 86225; 99212